=== PATIENT | female | born 1990 | race Caucasian/White ===

== ENCOUNTER 2024-10-29 07:57 | Inpatient (IN) ==
--- OUTSIDE RECORDS SUMMARY | 2024-10-29 08:05 | External Medical Summary | Summary of Care ---
Author Name Unknown Organization [facility] Address [address] [facility] [place] [address] Phone [phone] Care Team Providers Care Computer Aide Name Role Phone Sandra Vega Primary Care Provider Reason for Visit * Reason Onset Date Comments 10/24/2024 Encounter Details Date Type Department Care Team (Late st Contact Info) Description 10/24/2024 Telephone Gynecology/Obstetrics Carusobonnie Ricks [address] [place] [address] Mary Weathers CRNP [address] [place] [address] Allergies Active Allergy Reactions Criticality Noted Date Comments Citalopram Hydrobromide Other (Please comment) 02/18/2009 Increases anxiety-celexa Cyclobenzaprine 04/26/2021 documented as of this encounter (statuses as of 10/24/2024) Medications 28-0.8 MG Oral Tablet Take by mouth. Active [email or web address] Verio Flex System w/Device Kit Use to test blood sugars 4 times daily (fasting, 1 hour after breakfast, lunch, and dinner) 1 Kit 06/19/2024 Active Comparabien.comTouch Verio In Vitro Strip (Glucose Blood) Use to test blood sugars 4 times daily (fasting, 1 hour after breakfast, lunch, and dinner) 125 Strip 6 06/19/2024 Active OneTouch Delica Lancets 30G Use to test blood sugars 4 times daily (fasting, 1 hour after breakfast, lunch, and dinner) 200 Each 6 06/19/2024 Active Sertraline HCl 25 MG Oral Tablet (Zoloft) Take 1 Tablet by mouth in the morning. 06/28/2024 Active busPIRone HCl 5 MG Oral Tablet (Buspar) Take 1 Tablet by mouth in the morning and 1 Tablet at noon and 1 Tablet before bedtime. Active Meclizine HCl 25 MG Oral Tablet (Antivert) Take 1 Tablet by mouth 3 times a day as needed. Active valACYclovir HCl 500 MG Oral Tablet (Valtrex)Indica tions:HSV infection Take 1 Tablet by mouth in the morning and 1 Tablet before bedtime. 60 Tablet 1 09/23/2024 9:41 AM EST 09/23/2024 Active documented as of this encounter (statuses as of 10/24/2024) Active Problems Problem Noted Date Diagnosed Date History of respiratory syncytial virus (RSV) vac cination 09/23/2024 Overview (09/23/2024): 09/23/24 , supervision, high-risk 06/28/2024 Obesity in , antepartum 06/28/2024 Overview (07/10/2024): Pre gravid BMI: 35.0 Class 2 Assessment & Plan (07/11/2024 3:28 PM EDT): CONSIDERATIONS: Discussed obstetrical risks associated with class II obesity (pre- BMI of 35 to 39.9) Reviewed that the accuracy of ultrasound at diagnosing anomalies is significantly decreased for women with an increased BMI. RECOMMENDATIONS: Recommend restricting weight gain during to 11-20 pounds. Patient should be referred for a nutrition consult. Recommend evaluation for signs and symptoms (snoring, excessive daytime sleepiness witnessed apnea or unexplained hypoxia) of obstructive sleep apnea. If any of these are present, referral to Sleep Medicine specialist for further evaluation should be considered. Recommend performing gestational diabetes mellitus screen now (if not performed at first visit) and repeat again at 26-28 weeks if early screen is normal. Recommend Maternal- Medicine ultrasound for anatomy at 20 weeks and for growth every 4 weeks thereafter. For patients with Class 2 obesity, we recommend weekly surveillance starting at 37 weeks. Assessment & Plan (07/08/2024 12:34 PM EDT): She presents for a anatomy survey secondary to class II obesity, AMA, and GDM (currently A1). Labs reviewed: -- 3 hour GTT abnormal on 06/13/24 We reviewed the results of today's ultrasound. The estimated weight is appropriate for gestational age. The visualized anatomy is unremarkable in appearance. The amniotic fluid amount appears normal. We discussed that ultrasound is not able to identify all anomalies, but it is reassuring that no anomalies were seen today. She is scheduled for a consultation visit on 07/11/24. I encouraged her to attend. GDM (gestational diabetes mellitus) 06/24/2024 Overview (10/21/2024): Diagnosed at 21 weeks Nutrition consult declined by patient Recommend checking A1C (ordered) 1 hour GTT: 159 3 hour GTT: 103 / 182 / 152 / 117 Patient states that she and her family were on vacation,so she was not checking her blood sugars on a regular basis or at the fasting or 1 hour anabel; testing randomly 07/11/24: MFM ADAPT consult complete. Enrolled in [employer]. Instructions provided to report blood sugars each week for MFM review; Discussed importance of testing FBS and 1 hour after meals. Reviewed diet and exercise recommendations. 07/15/[id number]-DSF-jpmuceep 2 fasting blood sugars and 3 post prandial breakfast; stable. Messaged to be consistent with testing four times daily and reporting. Will review again next week. 07/22/[id number]-ZHQ-inditki blood sugars overall stable (2 of 7 elevated fasting blood sugars). Reported only 5 post prandial numbers in the past week. Again messaged to be consistent with testing four times daily. Will schedule follow up ADAPT appointment next week if still with minimal post prandial reporting. 07/29/[id number]-TAZ-wjkvlib stable (< 50% fasting blood sugars elevated). Minimal post prandial values. Patient and [facility] messaged to schedule follow up ADAPT appointment. 08/05/24: Follow-up ADAPT visit complete; minimal reporting in [facility] RPM; no blood sugars to review today - patient to send message with updated log; continue diet controlled; recommend Nutrition visit 08/15/[id number]-WUM-jad reporting. Sent message to patient and [facility] to schedule follow up ADAPT appointment. 08/19/24: Follow-up ADAPT visit complete; not reporting in [facility] RPM, minimal blood sugars reported today; of those reported, elevated FBS - pt declined starting medication today; recommend fasting 8-10 hours overnight along with having a bedtime snack of 30g CHO paired with protein; F/U ADAPT visit scheduled 08/26/24 @ 7:30AM 08/26/24: Follow-up ADAPT complete; minimal values reported - of those reported, stable although no FBS reported; continue diet controlled and reviewed importance of more consistent testing/reporting 09/02/[id number]-NEI-rcy reporting. Sent message via [employer] and [employer] asking her to report. Sent message to [facility] to schedule follow up ADAPT appointment. 09/06/2024 Follow up ADAPT compete; not reporting in [facility] or checking blood sugars consistently; blood sugars reported today are stable. Ask to commit to check blood sugars 4 times daily (if not at least always a fasting and one meal) and entering them into the [employer] [facility]. 09/09/[id number]-UCZ-xar reporting. Sent message via [employer] and [employer] asking her to report. 09/16/24: Pt not reporting BG readings. State she will being readings to her [facility] appoint on 09/19/24 09/20/24: Scanned blood sugars reviewed; stable; however, minimal values reported and unclear if fasting or postprandial values; will ask [facility] P[facility] to offer patient ADAPT visit 09/23/[id number]-TXZ-qwf reporting in [facility]. Has follow up ADAPT appointment scheduled 10/07/2024 per maternal medicine nurse practitioners. 10/01/24: RPM reviewed; RPM-not reporting in [facility]. Has follow up ADAPT appointment scheduled 10/07/2024. My chart message sent requesting updated blood sugars 10/07/24: Follow-up ADAPT visit complete; testing twice daily - of those reported, stable; continue diet controlled with more consistent testing/reporting; patient deferred scheduling F/U ADAPT visit at this time and states she will reporting in RPM 10/14/[id number]-LEI-oju reporting in [facility]. Sent message asking her to update values. 10/21/24: RPM reviewed; not reports blood sugars in [facility]. Sent my chart message to update blood sugars Assessment & Plan (10/17/2024 9:00 AM EST): Patient did not share sugars at her ultrasound appt today. Assessment & Plan (09/19/2024 10:19 AM EST): Provided sugars at her visit today. Assessment & Plan (08/15/2024 11:12 AM EDT): Not reporting sugars. Appt made for 08/19. Assessment & Plan (07/11/2024 4:02 PM EDT): CONSIDERATIONS: Reviewed etiology and risks associated with gestational diabetes mellitus (GDM), including risks to , fetus, and maternal progression to Type 2 DM. Instructed on proper use of glucometer; supplies ordered, if indicated. Advised that life-long screening for diabetes is recommended every 1-3 years. RECOMMENDATIONS: Recommend monitoring blood sugars with daily fasting blood sugar (maintained at less than or equal to 95) and 1 hour postprandial measurements (maintained at less than or equal to 140). Medications should be adjusted to maintain these target values. Report levels to MFM (Maternal- Medicine) weekly. Recommend nutrition consult with RDN (Registered Dietitian Acoustical Tile Carpenters Supervisor). Lifestyle changes are also indicated including optimizing gestational weight gain and physical activity of 30 minutes per day, if not otherwise contraindicated in . Insulin is preferred if medications are indicated to optimize euglycemia. Metformin (preferred over glyburide) may also be used in some circumstances. Reviewed the risks and benefits of each. Recommend hemoglobin A1c testing now if diagnosed with GDM prior to 24 weeks as there is potential for pre-existing diabetes. If result is 6.5% or greater, then will diagnose with overt Type 2 DM and treat as pre-existing diabetes. If compliance later in gestation is question, a HBA1c can be assessed with a goal of less than 6%. Recommend ultrasound, surveillance and delivery as follows: A1GDM, delivery should be accomplished by 41w0d. A2GDM, recommend growth assessment with MFM every 4 weeks, initiate surveillance with twice weekly NSTs at 32 weeks and continue until delivery at 39 weeks. Recommend intrapartum monitoring every 1-2 hours (A2GDM) or every 4 hours (A1GDM) and treat with insulin if indicated. Recommend 2-hour glucose tolerance testing with 75-gram glucose load during admission (or 6-8 weeks if not completed). H/O delivery, currently 024 Overview (07/11/2024): 2008: history of delivery at 29 weeks due to premature rupture of membranes (PPROM) and labor 2010: delivered at 39w --patient reports she started with labor around 25 weeks, was placed on Procardia until 35 weeks 07/08/2024: MFM anatomy ultrasound: cervical length = 35.9 mm Assessment & Plan (07/11/2024 3:46 PM EDT): CONSIDERATIONS: Patient is at high risk to have a recurrent delivery (PTD): 3.6-fold higher with one prior PTD and the risk increases with the number of previous PTDs. Discussed modifiable risk factors (e.g., infections, tobacco/substance abuse, severe anemia, and poor nutrition). Previous studies showed that 17 alpha-hydroxyprogesterone (17P) could decrease the risk of recurrent PTD by up to 50% in women with previous spontaneous PTD prior to 37 weeks. However, follow-up studies failed to confirm these results and 17P has since been withdrawn from the market by the FDA due to lack of efficacy. There is some evidence that vaginal micronized progesterone 200 mg may reduce the risk for recurrent spontaneous . It can be prescribed as either a compounded suppository or as oral Prometrium capsules placed intravaginally at bedtime. RECOMMENDATIONS: Consider nightly vaginal progesterone, particularly in patients who previously received 17P. Patient's primary STREET OPENINGS INSPECTOR can coordinate therapy if desired. For patients with a history of delivery/prolonged PROM between 20-33w6d BUT HAS HAD SUBSEQUENT FULL-TERM DELIVERY, we recommend baseline transvaginal cervical length measurement with MFM at 19-20 weeks. AMA (advanced maternal age) multigravida 35+ Overview (07/11/2024): Age 34 at delivery NIPT: declined Genetic counselor: declined Assessment & Plan (07/11/2024 4:06 PM EDT): CONSIDERATIONS: We reviewed the most pertinent aspects of the following: Advanced maternal age (AMA) refers to a woman with a ram who will be at the age of 35 or older at the estimated time of delivery and may be associated with increased morbidity. After discussion of the genetic screening/testing options, the patient declines genetic screening and testing. In addition to the risk of chromosomal abnormalities, there is an increased risk of congenital/structural anomalies. RECOMMENDATIONS: Recommend MFM anatomy ultrasound at 19-20 weeks gestation. Depression complicating , antepartum Overview (07/11/2024): Depression managed with Zoloft Reports a stable mood in . Denies any suicidal or homicidal ideation. Reports she has a good support system at home. Assessment & Plan (07/11/2024 3:28 PM EDT): CONSIDERATIONS: Untreated maternal anxiety and/or depression may be associated with an increased risk of multiple poor obstetrical outcomes including miscarriages, low weight, and delivery. Women with a history of anxiety or depression are at risk for recurrence both during and/or the period. Studies of first-trimester SSRI exposure do not demonstrate consistent data to support an increased risk for structural malformations. Anti-anxiety or depression medications have been associated with transient effects (withdrawal syndrome). RECOMMENDATIONS: Mental illness can and should be treated during when the benefits of treatment outweigh potential risks. Referral to behavioral health services as clinically indicated. Cholelithiasis 10/17/2012 HSV infection Estimated Date of Delivery Comme nts Yes 10/25/2024 Based on Ultraso und documented as of this encounter (statuses as of 10/24/2024) Resolved Problems Problem Noted Date Diagnosed Date Resolved Date with 24 completed weeks gestation 07/11/2024 09/09/2024 ADVANCE DIRECTIVE INFORMATION 04/09/2009 09/02/2024 Overview (04/09/2009): No, Advance Directive brochure offered , patient declined. Current with histo ry of pre-term labor 02/18/2009 06/28/2024 documented as of this encounter (statuses as of 10/24/2024) Immunizations Name Administration Dates Next Due RSV Vac., Bivalent, Perfusion F, Pf,0.5 Ml (Abry svo) 09/23/2024 TDAP, Age 7 and older, IM (Adacel) 07/29/2024 documented as of this encounter Social History Tobacco Use Types Packs/Day Years Used Date Smoking Tobacco: Every Day Vaporizer Smokeless Tobacco: Current Comments:Vapes 5% nicotine Alcohol Use Standard Drinks/Week Comments No 0 (1 standard drink = 0.6 oz pur e alcohol) Hunger Vital Sign Answer Date Recorded Within the past 12 months, y ou worried that your food would run out before you got the money to buy more. Never true 05/27/20 24 Within the past 12 months, t he food you bought just didn't last and you didn't have money to get more. Never true 05/27/2024 Biggs Depression Scale Answer Date Recorded Biggs Depression Scale Total 3 09/09/2024 The thought of harming myself has occurred to me . Never 09/09/2024 Childcare Answer Date Recorded Do you feel overwhelmed with taking care of a child, family member or friend? No 05/27/2024 Does your family need help f inding childcare? (Household - for ages 0-17 years) Not on file 05/27/2024 Clothing Answer Date Recorded Have you been unable to get clothing when it was really needed? No 05/27/2024 Is your family able to get c lothes or diapers when needed? (Household - for ages 0-17 years) Not on file 05/27/2024 Personal Safety Answer Date Recorded Do you feel unsafe or have concerns for your saf ety? No 05/27/2024 Do you have concerns for you r family's safety? (Household - for ages 0-17 years) Not on file 05/27/2024 Utilities Answer Date Recorded Do you have trouble paying y our heating, water, or electric bill? No 05/27/2024 Is your family able to pay t he heat, water, or electric bill? (Household - for ages 0-17 years) Not on file 05/27/2024 Does your family have access to good internet? (Household - for ages 0-17 years) Not on file 05/27/2024 Employment Status Answer Date Recorded Are you unemployed or without regular income? No 05/27/2024 Does the household have a re gular source of income? (Household - for ages 0-17 years) Not on file 05/27/2024 Social Connections Answer Date Recorded How often do you feel lonely or isolated from th ose around you? Never 05/27/2024 Financial Resource Strain Answer Date R ecorded Do you have any trouble payi ng for your medications, or do you think you might in the future? No 05/27/2024 Does your family have troubl e paying for medicine? (Household - for ages 0-17 years) Not on file 05/27/2024 Transportation Needs Answer Date Record ed READ ONLY Do you have troubl e getting a ride to medical visits or work? Never True 05/27/2024 Does your family have a hard time getting a ride to doctors visits? (Household - for ages 0-17 years) Not on file 05/27/2024 Has lack of transportation k ept you from medical appointments, meetings, work, or from getting things needed for daily living? Check all that apply. No 05/27/2024 Do you (or your family) have trouble finding or paying for a ride (transportation)? (Household - for ages 0-17 years) Not on file 05/27/2024 Housing Stability Answer Date Recorded Do you currently live in a s helter or have no steady place to sleep at night? No 05/27/2024 READ ONLY Do you think you a re at risk of becoming homeless? No 05/27/2024 Does your family worry about paying for your home or becoming homeless? (Household - for ages 0-17 years) Not on file 0 05/27/2024 Are you homeless or worried that you might be in the future? No 05/27/2024 Are you (or your family) patricia eless or worried that you might be in the future? (Household - for ages 0-17 years) Not on file Food Insecurity Answer Date Recorded Do you need food for this week? No 05/27/2024 Are you able to get enough f ood for your family? (Household - for ages 0-17 years) Not on file 05/27/2024 Does your family need food t his week? (Household - for ages 0-17 years) Not on file 05/27/2024 Do you always have enough fo od for your family? (Household - for ages 0-17 years) Not on file 05/27/2024 Estimated Date of Delivery Comme nts Yes 10/25/2024 Based on Ultraso und Sex and Gender Information Value Date Recorded Sex Assigned at Female 04/11/2024 8:57 PM EDT Legal Sex Female 7:11 AM EST Gender Identity Female 04/11/2024 8:57 PM EDT Sexual Orientation Straight 04/11/2024 8: 57 PM EDT documented as of this encounter Miscellaneous Notes * Telephone Encounter - Isela Landry CMA - 10/24/2024 3:15 PM EST FMLA papers signed, faxed and copy placed in triage for patient to roll picker. documented in this encounter Plan of Treatment Upcoming Encounters Date Type Department Care Team (Late st Contact Info) Description 10/28/2024 11:15 AM EST Office Visit Gynecology/Obstetrics Parvez Ricks [address] [place] [address] Charleen Su CRNP [address] [place] [phone] Jessica Ricks Stress Tests Yo [address] [place] [address] Health Maintenance Due Date Last Done Comments Depression Monitoring 2001 HIV Screening 2004 Hepatitis C Screening 2007 Pneumococcal Vaccine: Pediat rics (0 to 5 Years) and At-Risk Patients (6 to 18 Years and 19+ Years) (1 of 2 - PCV) 2008 HPV/Co-Test 2019 COVID-19 Vaccine (2 - 2023-2 5 season) 2024 06/15/2021 Influenza Vaccine (FLU shot) (#1) 2024 Cervical Cancer Screening 08/30/2026 Pap Smear 08/30/2026 08/30/2023 Diabetes Screening 06/08/2027 06/08/2024 DTap/Tdap Vaccines (6 - Td o r Tdap) 07/29/2034 07/29/2024, 09/04/1995, 1989, Additional history exists Hepatitis B Vaccine Completed 02/01/2000, 08/31/1999, 07/27/1999 MENINGOCOCCAL (MENACTRA/MENVEO) Completed 7 HPV (Gardasil) Vaccine Completed 8, 10/18/2007, 08/14/2007 documented as of this encounter Medical Devices Not on filedocumented as of this encounter Advance Directives * Full Code (Latest Code Status on File) Date Activated Date Inactivated Comments 02/18/2009 4:31 PM 02/26/2009 8:21 PM Care Teams Computer Aide Relationship Specialty Start Date End Date Sandra Vega DO [facility] Pipo Wilkinson [address] [place] [address], [place] [address] PCP - General Family Medicine 10/17/12 documented as of this encounter
--- OUTSIDE RECORDS SUMMARY | 2024-10-29 08:05 | External Medical Summary | Summary of Care ---
Author Name Unknown Organization [facility] Address [address] [facility] [place] [address] Phone [phone] Care Team Providers Care Whitewasher Name Role Phone Sandra Vega Primary Care Provider Reason for Visit * Reason Comments Return Visit Non Stress Test Encounter Details Date Type Department Care Team (Late st Contact Info) Description 10/09/2024 9:00 AM EST Office Visit Gynecology/Obstetric s [facility] [address] [place] [address] Mary Weathers CRNP [address] [place] [address] Ricks, Non Stress Tests [facility] [address] [place] [address] Multigravida of advanced maternal age in third trimester*; Diet controlled gestational diabetes mellitus (GDM) in third trimester; H/O delivery, currently ; Depression complicating , antepartum; Supervision of high risk in third trimester; Obesity in , antepartum; History of respiratory syncytial virus (RSV) vaccination Allergies Active Allergy Reactions Criticality Noted Date Comments Citalopram Hydrobromide Other (Please comment) 02/18/2009 Increases anxiety-celexa Cyclobenzaprine 04/26/2021 documented as of this encounter (statuses as of 10/09/2024) Medications 28-0.8 MG Oral Tablet Take by mouth. Active BlueLithium Flex System w/Device Kit Use to test blood sugars 4 times daily (fasting, 1 hour after breakfast, lunch, and dinner) 1 Kit 06/19/2024 Active OneTouch Verio In Vitro Strip (Glucose Blood) Use [...] as of this encounter (statuses as of 10/09/2024) Active Problems Problem Noted Date Diagnosed Date [...] attend. GDM (gestational diabetes mellitus) 06/24/2024 Overview (10/07/2024): Diagnosed at 21 weeks Nutrition consult declined [...] 07/11/24: MFM ADAPT consult complete. Enrolled in Current Health. Instructions provided to report blood sugars each week for MFM review; Discussed importance of testing FBS and 1 hour after meals. Reviewed diet and exercise recommendations. 07/15/20249994-MPL-wyianieq 2 fasting blood sugars and 3 post prandial breakfast; stable. Messaged to be consistent with testing four times daily and reporting. Will review again next week. 07/22/20247534-ENM-vildscy blood sugars overall stable (2 of 7 elevated fasting blood sugars). Reported only 5 post prandial numbers in the past week. Again messaged to be consistent with testing four times daily. Will schedule follow up ADAPT appointment next week if still with minimal post prandial reporting. 07/29/[id number]-NSJ-vazapfx stable (< 50% fasting blood sugars elevated). Minimal post prandial values. Patient and [facility] messaged to schedule follow up ADAPT appointment. 08/05/24: Follow-up ADAPT visit complete; minimal reporting in [facility] RPM; no blood sugars to review today - patient to send message with updated log; continue diet controlled; recommend Nutrition visit 08/15/20243932-QSA-tkb reporting. Sent message to patient and [facility] to schedule follow up ADAPT appointment. [...] and reviewed importance of more consistent testing/reporting 09/02/20249024-SEH-lgo reporting. Sent message via [employer] and [employer] asking her to report. Sent message to [facility] to schedule follow up ADAPT appointment. 09/06/2024 Follow up ADAPT compete; not reporting in [facility] [place] or checking blood sugars consistently; blood sugars reported today are stable. Ask to commit to check blood sugars 4 times daily (if not at least always a fasting and one meal) and entering them into the [employer] [place]. 09/09/20242036-ZTZ-pnf reporting. Sent message via [employer] and [employer] asking her to report. 09/16/24: Pt not reporting BG readings. State she will being readings to her [facility] appoint on 09/19/24 09/20/24: Scanned blood sugars reviewed; stable; however, minimal values reported and unclear if fasting or postprandial values; will ask [facility] PARS to offer patient ADAPT visit 09/23/20243649-MAS-hvr reporting in Current Health. Has follow up [...] time and states she will reporting in CH RPM Assessment & Plan (09/19/2024 10:19 AM EST): [...] Recommend nutrition consult with RDN (Registered Dietitian Equipment Mechanic). Lifestyle changes are also indicated including optimizing [...] patients who previously received 17P. Patient's primary SAMPLE SELECTOR can coordinate therapy if desired. For patients [...] as of this encounter (statuses as of 10/09/2024) Resolved Problems Problem Noted Date Diagnosed Date Resolved Date with 24 completed weeks gestation 07/11/2024 09/09/2024 ADVANCE DIRECTIVE INFORMATION 04/09/2009 09/02/2024 Overview (04/09/2009): No, Advance Directive brochure offered , patient declined. Current with histo ry of pre-term labor 02/18/2009 06/28/2024 documented as of this encounter (statuses as of 10/09/2024) Immunizations Name Administration Dates Next Due RSV [...] money to get more. Never true 05/27/2024 [place] Depression Scale Answer Date Recorded [place] Depression Scale Total 3 09/09/2024 The thought [...] PM EDT documented as of this encounter Last Filed Vital Signs Vital Sign Reading Time Taken Comments Blood Pressure 118/64 10/09/2024 9:12 AM EST Pulse - - Temperature - - Respiratory Rate - - Oxygen Saturation - - Inhaled Oxygen Concentration - - Weight 91.4 kg (201 lb 6.4 oz) 10/09/2024 9:12 A M EST Height - - Body Mass Index 35.68 04/25/2024 8:49 AM EDT documented in this encounter Progress Notes * Mary Weathers CRNP - 10/09/2024 9:54 AM EST 37w5d Asking about 39w IOL. Explained policy of elective induction being on or after EDC, [facility] request ofsuch. Asking about elective c/s, explained she needs to discuss this with a physician, and that shelikely would need a valid reason for this. Suggested she reschedule her next EMMIE appt with a physician if she would like to discuss this. She states her blood sugars are good. Had ADAPT appt earlier this week, which stated she was only checking sugar twice a day. ASSESSMENT assessment with Non-stress Test completed on 10/09/2024 at 37.5weeks gestation for indicationof obesity heart baseline: 150 bpm Variability: Moderate Decelerations: absent Accelerations: present Contractions: None NST start time: 908 NST stop time: 945 NST strip reviewed, interpreted, and approved by OB provider, JIGAR Lucas . NST strip stored in clinic storage file * Isela Landry CMA - 10/09/2024 9:12 AM EST 37w5d NST/EMMIE Denies any concerns documented in this encounter Plan of Treatment Upcoming Encounters Date Type Department Care Team (Late st Contact Info) Description 10/17/2024 8:00 AM EST Imaging Maternal Medicine Imaging, Yo [facility] [address] [place] [phone] 10/17/2024 8:30 AM EST Office Visit Gynecology/Obstetrics [facility] [address] [place] [address] Backer, JIGAR Barba [address] [place] [phone] Health Maintenance Due Date Last Done Comments Pneumococcal Vaccine: Pediat rics (0 to 5 Years) and At-Risk Patients (6 to 64 Years) (1 of 2 - PCV) 1995 Depression Monitoring 2001 HIV Screening 2004 Hepatitis C Screening 2007 HPV/Co-Test 2019 COVID-19 Vaccine (2 - 2023-2 [...] Not on filedocumented as of this encounter Visit Diagnoses Diagnosis Obesity in , antepartum- Primary Obesity complicating , childbirth, or the puerperium, antepartum condition or complication Multigravida of advanced maternal age in second trimester Diet controlled gestational diabetes mellitus (GDM) in second trimester H/O delivery, currently with history of pre-term labor 24 weeks gestation of state, incidental Other specified related conditions, unspecified trimester Diet controlled gestational diabetes mellitus (GDM) in second trimester- Primary Obesity in , antepartum Obesity complicating , childbirth, or the puerperium, antepartum condition or complication H/O delivery, currently with history of pre-term labor Depression complicating , antepartum Mental disorders of mother, antepartum Multigravida of advanced maternal age in second trimester Supervision of high risk in second trimester Unspecified high-risk with 24 completed weeks gestation Obesity in , antepartum- Primary Obesity complicating , childbirth, or the puerperium, antepartum condition or complication Diet controlled gestational diabetes mellitus (GDM) in third trimester Multigravida of advanced maternal age in third trimester 29 weeks gestation of state, incidental Diet controlled gestational diabetes mellitus (GDM) in third trimester- Primary Obesity in , antepartum Obesity complicating , childbirth, or the puerperium, antepartum condition or complication Ultrasound for screening for growth restriction screening for growth retardation using ultrasonics 34 weeks gestation of state, incidental Multigravida of advanced maternal age in third trimester- Primary Diet controlled gestational diabetes mellitus (GDM) in third trimester H/O delivery, currently with history of pre-term labor Depression complicating , antepartum Mental disorders of mother, antepartum Supervision of high risk in third trimester Unspecified high-risk Obesity in , antepartum Obesity complicating , childbirth, or the puerperium, antepartum condition or complication History of respiratory syncytial virus (RSV) vaccination documented in this encounter Advance Directives * Full Code (Latest Code Status on File) Date Activated Date Inactivated Comments 02/18/2009 4:31 PM 02/26/2009 8:21 PM Care Teams Whitewasher Relationship Specialty Start Date End Date Sandra Vega DO [address] [place] [address] [place] [address] PCP - General Family Medicine 10/17/12 documented as of this encounter
--- OUTSIDE RECORDS SUMMARY | 2024-10-29 08:05 | External Medical Summary | Summary of Care ---
Author Name Unknown Organization [facility] Address [address] [place] [address] Phone [phone] Care Team Providers Care Mercantile Agent Name Role Phone Sandra Vega Primary Care Provider Encounter Details Date Type Department Care Team (Late st Contact Info) Description 10/17/2024 8:00 AM EST Office Visit Manager Diabetes Obstetrics Maternal Medicine, [address] [place] [address] Anna Jara DO [address] [place] [address] Diet controlled gestational diabetes mellitus (GDM) in third trimester*; Multigravida of advanced maternal age in third trimester; Obesity in , antepartum; Ultrasound for screening for growth restriction; 38 weeks gestation of Allergies Active Allergy Reactions Criticality Noted Date Comments Citalopram Hydrobromide Other (Please comment) 02/18/2009 Increases anxiety-celexa Cyclobenzaprine 04/26/2021 documented as of this encounter (statuses as of 10/17/2024) Medications 28-0.8 MG Oral Tablet Take by mouth. Active [employer] Flex System w/Device Kit Use to test blood sugars 4 times daily (fasting, 1 hour after breakfast, lunch, and dinner) 1 Kit 06/19/2024 Active [employer] First30Daysio In Vitro Strip (Glucose Blood) Use to test blood sugars 4 times daily (fasting, 1 hour after breakfast, lunch, and dinner) 125 Strip 6 06/19/2024 Active MeMeMeTouch Delica Lancets 30G Use to test blood [...] as of this encounter (statuses as of 10/17/2024) Active Problems Problem Noted Date Diagnosed Date [...] attend. GDM (gestational diabetes mellitus) 06/24/2024 Overview (10/14/2024): Diagnosed at 21 weeks Nutrition consult declined [...] MFM ADAPT consult complete. Enrolled in Current [employer]. Instructions provided to report blood sugars each week for MFM review; Discussed importance of testing FBS and 1 hour after meals. Reviewed diet and exercise recommendations. 07/15/20247727-VEA-ttqgrkyn 2 fasting blood sugars and 3 post prandial breakfast; stable. Messaged to be consistent with testing four times daily and reporting. Will review again next week. 07/22/[id number]-ERK-uuqvbtp blood sugars overall stable (2 of 7 elevated fasting blood sugars). Reported only 5 post prandial numbers in the past week. Again messaged to be consistent with testing four times daily. Will schedule follow up ADAPT appointment next week if still with minimal post prandial reporting. 07/29/20242549-BIT-uyriwtw stable (< 50% fasting blood sugars elevated). Minimal post prandial values. Patient and [facility] PAR[facility] messaged to schedule follow up ADAPT appointment. 08/05/24: Follow-up ADAPT visit complete; minimal reporting in RPM; no blood sugars to review today - patient to send message with updated log; continue diet controlled; recommend Nutrition visit 08/15/20243100-XGR-jwu reporting. Sent message to patient and [facility] PAR[facility] to schedule follow up ADAPT appointment. 08/19/24: Follow-up ADAPT visit complete; not reporting in RPM, minimal blood sugars reported today; of [...] and reviewed importance of more consistent testing/reporting 09/02/20246707-IRU-yga reporting. Sent message via [employer] and [employer] asking her to report. Sent message to [facility] PARs to schedule follow up ADAPT appointment. 09/06/2024 Follow up ADAPT compete; not reporting in [facility] or checking blood sugars consistently; blood sugars reported today are stable. Ask to commit to check blood sugars 4 times daily (if not at least always a fasting and one meal) and entering them into the [employer] [place]. 09/09/20241154-AUC-dyv reporting. Sent message via [employer] and [employer] asking her to report. 09/16/24: Pt not reporting BG readings. State she will being readings to her [facility] appoint on 09/19/24 09/20/24: Scanned blood sugars reviewed; stable; however, minimal values reported and unclear if fasting or postprandial values; will ask [facility] PARS to offer patient ADAPT visit 09/23/20242627-VNU-uft reporting in Current Health. Has follow up [...] and states she will reporting in RPM 10/14/20246313-NDE-rvv reporting in Current Health bonita. Sent message asking her to update values. Assessment & Plan (10/17/2024 9:00 AM EST): [...] Recommend nutrition consult with RDN (Registered Dietitian Rv Body Mechanic). Lifestyle changes are also indicated including [...] premature rupture of membranes (PPROM) and labor 2011: delivered at 39w --patient reports she started [...] patients who previously received 17P. Patient's primary CONCRETE PRODUCTS DISPATCHER can coordinate therapy if desired. For patients [...] as of this encounter (statuses as of 10/17/2024) Resolved Problems Problem Noted Date Diagnosed Date Resolved Date with 24 completed weeks gestation 07/11/2024 09/09/2024 ADVANCE DIRECTIVE INFORMATION 04/09/2009 09/02/2024 Overview (04/09/2009): No, Advance Directive brochure offered , patient declined. Current with histo ry of pre-term labor 02/18/2009 06/28/2024 documented as of this encounter (statuses as of 10/17/2024) Immunizations Name Administration Dates Next Due RSV [...] money to get more. Never true 05/27/2024 [place] Depression Scale Answer Date Recorded [place] Depression Scale Total 3 09/09/2024 The thought [...] PM EDT documented as of this encounter Progress Notes * Anna Jara DO - 10/17/2024 9:00 AM EST Priyanka presented today at 38w6d for an ultrasound for the following indications: Diet controlled gestational diabetes mellitus (GDM) in third trimester Assessment & Plan: Patient did not share sugars at her ultrasound appt today. Multigravida of advanced maternal age in third trimester Obesity in , antepartum Ultrasound for screening for growth restriction 38 weeks gestation of Ultrasound summary: Patient presented at 38w 6d for growth assessment. Normal growth with EFW 2989 g at 18%ile. Normal ROSA at 7.6 cm. Cephalic presentation. BPP 06/06. I reviewed the ultrasound images. Priyanka was given the opportunity to meet with me if she had any questions. Please refer to the ultrasound report for additional details about today's ultrasound examination. RECOMMENDATIONS: Follow up with MFM for ultrasound as clinically indicated. Weekly NSTs. See prior formal MFM consultation note. Thank you for allowing us to participate in the care of this patient. Please call with any questions. Anna Jara DO 10/17/2024 9:00 AM documented in this encounter Miscellaneous Notes * Assessment & Plan Note - Anna Jara DO - 10/17/2024 9:00 AM EST Associated Problem(s): GDM (gestational diabetes mellitus) Patient did not share sugars at her ultrasound appt today. documented in this encounter Plan of Treatment Health Maintenance Due Date Last Done Comments [...] ultrasonics 34 weeks gestation of state, incidental Diet controlled gestational diabetes mellitus (GDM) in third trimester- Primary Multigravida of advanced maternal age in third trimester Obesity in , antepartum Obesity complicating , childbirth, or the puerperium, antepartum condition or complication Ultrasound for screening for growth restriction screening for growth retardation using ultrasonics 38 weeks gestation of state, incidental documented in this encounter Advance Directives * Full Code (Latest Code Status on File) Date Activated Date Inactivated Comments 02/18/2009 4:31 PM 02/26/2009 8:21 PM Care Teams Mercantile Agent Relationship Specialty Start Date End Date Sandra Vega DO [address] [place] [phone] PCP - General Family Medicine 10/17/12 documented as of this encounter
--- OUTSIDE RECORDS SUMMARY | 2024-10-29 08:05 | External Medical Summary | Summary of Care ---
Author Name Unknown Organization [facility] Address [address] [facility] [place] [address] Phone [phone] Care Team Providers Care Planning Associate Name Role Phone Sandra Vega Primary Care Provider Reason for Visit * Reason Comments Return Visit Encounter Details Date Type Department Care Team (Late st Contact Info) Description 10/17/2024 8:30 AM EST Office Visit Gynecology/Obstetric s [facility] [address] [place] [address] BackerCharleen CRNP [address] [place] [address] Supervision of high risk in third trimester*; Diet controlled gestational diabetes mellitus (GDM) in third trimester; H/O delivery, currently ; Multigravida of advanced maternal age in third trimester; Depression complicating , antepartum; Obesity in , antepartum; History of respiratory syncytial virus (RSV) vaccination Allergies Active Allergy Reactions Criticality Noted Date Comments Citalopram Hydrobromide Other (Please comment) 02/18/2009 Increases anxiety-celexa Cyclobenzaprine 04/26/2021 documented as of this encounter (statuses as of 10/17/2024) Medications 28-0.8 MG Oral Tablet Take by mouth. Active [employer] Verio Flex System w/Device Kit Use to test blood sugars 4 times daily (fasting, 1 hour after breakfast, lunch, and dinner) 1 Kit 06/19/[address] [employer] Verio In Vitro Strip (Glucose Blood) Use [...] 07/11/24: MFM ADAPT consult complete. Enrolled in [facility]. Instructions provided to report blood sugars each week for MFM review; Discussed importance of testing FBS and 1 hour after meals. Reviewed diet and exercise recommendations. 07/15/20248747-QFN-gjnrspst 2 fasting blood sugars and 3 post prandial breakfast; stable. Messaged to be consistent with testing four times daily and reporting. Will review again next week. 07/22/20246455-NGH-chrgfdo blood sugars overall stable (2 of 7 elevated fasting blood sugars). Reported only 5 post prandial numbers in the past week. Again messaged to be consistent with testing four times daily. Will schedule follow up ADAPT appointment next week if still with minimal post prandial reporting. 07/29/20243526-JPY-ejbmccn stable (< 50% fasting blood sugars elevated). Minimal post prandial values. Patient and [facility] PARs messaged to schedule follow up ADAPT appointment. 08/05/24: Follow-up ADAPT visit complete; minimal reporting in CH RPM; no blood sugars to review today - patient to send message with updated log; continue diet controlled; recommend Nutrition visit 08/15/20247750-DLH-obj reporting. Sent message to patient and [facility] PARs to schedule follow up ADAPT appointment. [...] and reviewed importance of more consistent testing/reporting 09/02/20243613-ZFK-wis reporting. Sent message via [employer] and [employer] asking her to report. Sent message to [facility] PARs to schedule follow up ADAPT appointment. 09/06/2024 Follow up ADAPT compete; not reporting in [facility] [place] or checking blood sugars consistently; blood sugars reported today are stable. Ask to commit to check blood sugars 4 times daily (if not at least always a fasting and one meal) and entering them into the [employer] [place]. 09/09/[id number]-EMO-jcv reporting. Sent message via [employer] and [employer] asking her to report. 09/16/24: Pt not reporting BG readings. State she will being readings to her [facility] appoint on 09/19/24 09/20/24: Scanned blood sugars reviewed; stable; however, minimal values reported and unclear if fasting or postprandial values; will ask [facility] PARS to offer patient ADAPT visit 09/23/20243764-KDX-qhe reporting in Current Health. Has follow up [...] states she will reporting in CH RPM 10/14/20241485-XKK-pyz reporting in Current Health bonita. Sent message asking her to update values. Assessment & Plan (09/19/2024 10:19 AM EST): [...] Recommend nutrition consult with RDN (Registered Dietitian Optical Laboratory Manager). Lifestyle changes are also indicated including optimizing [...] patients who previously received 17P. Patient's primary CAUSE ANALYST can coordinate therapy if desired. For patients [...] money to get more. Never true 05/27/2024 [place] Depression Scale Answer Date Recorded [place] Depression Scale Total 3 09/09/2024 The thought [...] Sign Reading Time Taken Comments Blood Pressure 122/72 10/17/2024 8:11 AM EST Pulse - - Temperature - - Respiratory Rate - - Oxygen Saturation - - Inhaled Oxygen Concentration - - Weight 91.5 kg (201 lb 12.8 oz) 10/17/2024 8:11 AM EST Height - - Body Mass Index 35.75 04/25/2024 8:49 AM EDT documented in this encounter Progress Notes * Isela Landry CMA - 10/17/2024 8:38 AM EST 38w6d Denies any concerns * Charleen Su CRNP - 10/17/2024 8:21 AM EST 38w6d Growth scan with MFM today, BPP 06/06. No regular ctx. Good movement. Denies leaking/bleeding. Recommend delivery by 41w0d due to GDMA 1, patient agreeable. Return in 1 week for EMMIE/NST. JIGAR Leo documented in this encounter Plan of Treatment [...] ultrasonics 34 weeks gestation of state, incidental Supervision of high risk in third trimester- Primary Unspecified high-risk Diet controlled gestational diabetes mellitus (GDM) in third trimester H/O delivery, currently with history of pre-term labor Multigravida of advanced maternal age in third trimester Depression complicating , antepartum Mental disorders of mother, antepartum Obesity in , antepartum Obesity complicating , childbirth, or the puerperium, antepartum condition or complication History of respiratory syncytial virus (RSV) vaccination documented in this encounter Advance Directives * Full Code (Latest Code Status on File) Date Activated Date Inactivated Comments 02/18/2009 4:31 PM 02/26/2009 8:21 PM Care Teams Planning Associate Relationship Specialty Start Date End Date Sandra Vega DO [address] [place] [address] [address] PCP - General Family Medicine 10/17/12 documented as of this encounter
--- OUTSIDE RECORDS SUMMARY | 2024-10-29 08:05 | External Medical Summary | Summary of Care ---
Author Name Unknown Organization [facility] Address [address] [address] Phone [phone] Care Team Providers Care Network Firewall Engineer Name Role Phone Sandra Vega Primary Care Provider Reason for Visit * Reason Comments Return Visit Non Stress Test Encounter Details Date Type Department Care Team (Late st Contact Info) Description 10/24/2024 10:00 AM EST Office Visit Gynecology/Obstetric s [facility] [address] [place] [address] Dee Tam PA-C [address] [place] [address] [facility] Non Stress Tests Yo [address] [place] [address] Supervision of high risk in third trimester*; [...] MG Oral Tablet Take by mouth. Active Access Systems System w/Device Kit Use to test blood sugars 4 times daily (fasting, 1 hour after breakfast, lunch, and dinner) 1 Kit 06/19/2024 Active ClowdyTouch Verio In Vitro Strip (Glucose Blood) Use [...] after meals. Reviewed diet and exercise recommendations. 07/15/20241706-LQI-qwaruojy 2 fasting blood sugars and 3 post prandial breakfast; stable. Messaged to be consistent with testing four times daily and reporting. Will review again next week. 07/22/20244062-GEA-qurxplj blood sugars overall stable (2 of 7 elevated fasting blood sugars). Reported only 5 post prandial numbers in the past week. Again messaged to be consistent with testing four times daily. Will schedule follow up ADAPT appointment next week if still with minimal post prandial reporting. 07/29/20245546-JTN-yhxaxtp stable (< 50% fasting blood sugars elevated). Minimal post prandial values. Patient and [facility] messaged to schedule follow up ADAPT appointment. 08/05/24: Follow-up ADAPT visit complete; minimal reporting in [facility] RPM; no blood sugars to review today - patient to send message with updated log; continue diet controlled; recommend Nutrition visit 08/15/20243165-HJJ-epb reporting. Sent message to patient and [facility] [...] and reviewed importance of more consistent testing/reporting 09/02/20246598-OJY-qzr reporting. Sent message via [employer] and Re[employer]ult asking her to report. Sent message to [...] one meal) and entering them into the [employer] Bonita. 09/09/20246492-LNC-ium reporting. Sent message via [employer] and Re5ult asking her to report. 09/16/24: Pt not reporting BG readings. State she will being readings to her [facility] appoint on 09/19/24 09/20/24: Scanned blood sugars reviewed; stable; however, minimal values reported and unclear if fasting or postprandial values; will ask [facility] PARS to offer patient ADAPT visit 09/23/20244540-SJV-bph reporting in Current Health. Has follow up ADAPT appointment scheduled 10/07/2024 per maternal medicine nurse practitioners. 10/01/24: RPM reviewed; RPM-not reporting in Current Health. Has follow up ADAPT appointment scheduled 10/07/2024. My Quintic message sent requesting updated blood sugars 10/07/24: Follow-up ADAPT visit complete; testing twice daily - of those reported, stable; continue diet controlled with more consistent testing/reporting; patient deferred scheduling F/U ADAPT visit at this time and states she will reporting in RPM 10/14/20243465-EZW-wwn reporting in Current Health bonita. Sent message [...] Recommend nutrition consult with RDN (Registered Dietitian Field Secretary). Lifestyle changes are also indicated including optimizing [...] patients who previously received 17P. Patient's primary STEEL ANALYST can coordinate therapy if desired. For [...] money to get more. Never true 05/27/2024 [place] Depression Scale Answer Date Recorded [place] Depression Scale Total 3 09/09/2024 The thought [...] Sign Reading Time Taken Comments Blood Pressure 116/72 10/24/2024 10:16 AM EST Pulse - - Temperature - - Respiratory Rate - - Oxygen Saturation - - Inhaled Oxygen Concentration - - Weight 91.2 kg (201 lb) 10/24/2024 10:16 AM EST Height - - Body Mass Index 35.61 04/25/2024 8:49 AM EDT documented in this encounter Progress Notes * Dee Tam PA-C - 10/24/2024 10:00 AM EST Priyanka Hooks is a 34 year old female here for her routine OB appointment at 39w6d Her Estimated Date of Delivery: 10/25/24 REVIEW OF SYSTEMS She affirms movement. Denies vaginal bleeding, LOF, regular contractions. PHYSICAL EXAM Filed Vitals: 10/24/24 1016 BP: 116/72 Weight: 91.2 kg (201 lb) ASSESSMENT assessment with Non-stress Test completed on 10/24/2024 at 39w6d weeks gestation for indication of Class 2 obesity. heart baseline: 130 bpm Variability: Moderate Decelerations: absent Accelerations: present Contractions: None NST start time: 1249 NST stop time: 1327 NST strip reviewed, interpreted, and approved by OB provider, Dee Tam PA-C. NST strip stored in clinic storage file CE: %/-3 Membrane sweep performed per patient request Prison Teacher Documentation Patient offered contract administration specialist and accepted. Name of contract administration specialist: Tiarra Carter LPN. ASSESSMENT/PLAN Supervision of high risk in third trimester (Primary) Diet controlled gestational diabetes mellitus (GDM) in third trimester H/O delivery, currently Multigravida of advanced maternal age in third trimester Depression complicating , antepartum Obesity in , antepartum Supervision of - IOL scheduled 10/29 at 40w4d - labor precautions and kick counts reviewed RTO in ~4 days for 1 more EMMIE/NST prior to IOL scheduled 10/29. Dee Tam PA-C 10/24/2024 documented in this encounter Plan of Treatment Upcoming Encounters Date Type Department Care Team (Late st Contact Info) Description 10/28/2024 11:15 AM EST Office Visit Gynecology/Obstetrics [facility] [address] [place] [address] Charleen Su CRNP [address] [place] [address] Jessica Ricks Stress Tests Yo [address] [place] [address] Health Maintenance Due Date Last Done Comments [...] ultrasonics 38 weeks gestation of state, incidental Supervision of [...] 4:31 PM 02/26/2009 8:21 PM Care Teams Network Firewall Engineer Relationship Specialty Start Date End Date Sandra Vega DO [address] [place] [address] [place] [address], [place] [address] PCP - General Family Medicine 10/17/12 documented as of this encounter
--- OUTSIDE RECORDS SUMMARY | 2024-10-29 08:05 | External Medical Summary | Summary of Care ---
Author Name Unknown Organization [facility] Address [address] [place] [address] Phone [phone] Care Team Providers Care Production Control Technologist Name Role Phone Sandra Vega Primary Care Provider Reason for Visit * Reason Comments Non Stress Test Return Visit Encounter Details Date Type Department Care Team (Late st Contact Info) Description 10/28/2024 11:15 AM EST Office Visit Gynecology/Obstetric s [facility] [address] [place] [address] BackCharleen fish CRNP [address] [place] [address] [place], Non Stress Tests Yo [address] [place] [address] Supervision of high risk in third trimester*; [...] as of this encounter (statuses as of 10/28/2024) Medications 28-0.8 MG Oral Tablet Take by mouth. Active Orgdot System w/Device Kit Use to test blood sugars 4 times daily (fasting, 1 hour after breakfast, lunch, and dinner) 1 Kit 06/19/2024 Active tomoguidesTouch Verio In Vitro Strip (Glucose Blood) Use [...] as of this encounter (statuses as of 10/28/2024) Active Problems Problem Noted Date Diagnosed Date [...] after meals. Reviewed diet and exercise recommendations. 07/15/20244196-SIA-okzcucqg 2 fasting blood sugars and 3 post prandial breakfast; stable. Messaged to be consistent with testing four times daily and reporting. Will review again next week. 07/22/20242821-EAA-eqdkhva blood sugars overall stable (2 of 7 elevated fasting blood sugars). Reported only 5 post prandial numbers in the past week. Again messaged to be consistent with testing four times daily. Will schedule follow up ADAPT appointment next week if still with minimal post prandial reporting. 07/29/20247067-LMZ-lazazkc stable (< 50% fasting blood sugars elevated). Minimal post prandial values. Patient and [facility] PARs messaged to schedule follow up ADAPT appointment. 08/05/24: Follow-up ADAPT visit complete; minimal reporting in CH RPM; no blood sugars to review today - patient to send message with updated log; continue diet controlled; recommend Nutrition visit 08/15/20244236-MVI-fgq reporting. Sent message to patient and [facility] PARs to schedule follow up ADAPT appointment. [...] and reviewed importance of more consistent testing/reporting 09/02/20246535-WDV-qmj reporting. Sent message via [employer] and Blastbeat asking her to report. Sent message to [facility] PARs to schedule follow up ADAPT appointment. 09/06/2024 Follow up ADAPT compete; not reporting in Current Health Bonita or checking blood sugars consistently; blood sugars reported today are stable. Ask to commit to check blood sugars 4 times daily (if not at least always a fasting and one meal) and entering them into the [employer] Bonita. 09/09/20246559-TYV-wmx reporting. Sent message via [employer] and [employer] asking her to report. 09/16/24: Pt not reporting BG readings. State she will being readings to her [facility] appoint on 09/19/24 09/20/24: Scanned blood sugars reviewed; stable; however, minimal values reported and unclear if fasting or postprandial values; will ask [facility] PARS to offer patient ADAPT visit 09/23/20245782-YLX-aaf reporting in Current Health. Has follow up ADAPT appointment scheduled 10/07/2024 per maternal medicine nurse practitioners. 10/01/24: RPM reviewed; RPM-not reporting in Current Health. Has follow up ADAPT appointment scheduled 10/07/2024. My Purkinje message sent requesting updated blood sugars 10/07/24: Follow-up ADAPT visit complete; testing twice daily - of those reported, stable; continue diet controlled with more consistent testing/reporting; patient deferred scheduling F/U ADAPT visit at this time and states she will reporting in RPM 10/14/20242358-FVE-nni reporting in Current Health bonita. Sent message [...] Recommend nutrition consult with RDN (Registered Dietitian Manager Beauty). Lifestyle changes are also indicated including optimizing [...] patients who previously received 17P. Patient's primary ASSOCIATE STORE LEADER can coordinate therapy if desired. For patients [...] as of this encounter (statuses as of 10/28/2024) Resolved Problems Problem Noted Date Diagnosed Date Resolved Date with 24 completed weeks gestation 07/11/2024 09/09/2024 ADVANCE DIRECTIVE INFORMATION 04/09/2009 09/02/2024 Overview (04/09/2009): No, Advance Directive brochure offered , patient declined. Current with histo ry of pre-term labor 02/18/2009 06/28/2024 documented as of this encounter (statuses as of 10/28/2024) Immunizations Name Administration Dates Next Due RSV [...] money to get more. Never true 05/27/2024 [place] Depression Scale Answer Date Recorded [place] Depression Scale Total 3 09/09/2024 The thought [...] Sign Reading Time Taken Comments Blood Pressure 126/76 10/28/2024 11:25 AM EST Pulse - - Temperature - - Respiratory Rate - - Oxygen Saturation - - Inhaled Oxygen Concentration - - Weight 92.4 kg (203 lb 12.8 oz) 024 11:25 AM EST Height - - Body Mass Index 36.1 04/25/2024 8:49 AM EDT documented in this encounter Progress Notes * Charleen Su CRNP - 10/28/2024 11:26 AM EST ASSESSMENT assessment with Non-stress Test completed on 10/28/2024 at 40.3 weeks gestation for indication of obesity heart baseline: 140 bpm Variability: Moderate Decelerations: absent Accelerations: present Contractions: Present x2 NST start time: 1119 NST stop time: 1143 NST strip reviewed, interpreted, and approved by OB provider, JIGAR Leo . NST strip stored in clinic storage file Good movement. Denies regular ctx, leaking/bleeding. Induction is tomorrow. Return prn. JIGAR Leo * Isela Landry CMA - 10/28/2024 11:25 AM EST 40w3d Denies any concerns IOL scheduled for tomorrow 10/29. documented in this encounter Plan of Treatment [...] 4:31 PM 02/26/2009 8:21 PM Care Teams Production Control Technologist Relationship Specialty Start Date End Date Sandra Vega DO [address] [place] [address] PCP - General Family Medicine 10/17/12 documented as of this encounter
--- OUTSIDE RECORDS SUMMARY | 2024-10-29 08:05 | External Medical Summary | Summary of Care ---
Author Name Unknown Organization [facility] Address [address] [place] [address] Phone [phone] Care Team Providers Care Rabbit Breeder Name Role Phone Sandra Vega Primary Care Provider Reason for Visit * Reason Onset Date Comments Home Monitoring Alarm 10/29/2024 Encounter Details Date Type Department Care Team (Late st Contact Info) Description 10/29/2024 Home Monitoring Sales Assistant Entertainment And Media Obstetrics Maternal Medicine, [place] [address] [place] [address] Viviana Riggins CRNP [address] [place] [address] GDM (gestational diabetes mellitus)* Allergies Active Allergy Reactions Criticality Noted Date Comments Citalopram Hydrobromide Other (Please comment) 02/18/2009 Increases anxiety-celexa Cyclobenzaprine 04/26/2021 documented as of this encounter (statuses as of 10/29/2024) Medications 28-0.8 MG Oral Tablet Take by mouth. Active YPX Cay[employer] Holdings[employer]oom.[employer] Verio Flex System w/Device Kit Use to test blood sugars 4 times daily (fasting, 1 hour after breakfast, lunch, and dinner) 1 Kit 06/19/2024 Active YPX Cayman HoldingsTouch Verio In Vitro Strip (Glucose Blood) Use [...] as of this encounter (statuses as of 10/29/2024) Active Problems Problem Noted Date Diagnosed Date [...] attend. GDM (gestational diabetes mellitus) 06/24/2024 Overview (10/28/2024): Diagnosed at 21 weeks Nutrition consult declined [...] 07/11/24: MFM ADAPT consult complete. Enrolled in [employer]. Instructions provided to report blood sugars each week for MFM review; Discussed importance of testing FBS and 1 hour after meals. Reviewed diet and exercise recommendations. 07/15/20241287-WEY-lvjcarcr 2 fasting blood sugars and 3 post prandial breakfast; stable. Messaged to be consistent with testing four times daily and reporting. Will review again next week. 07/22/20245298-DLK-ogkyhcf blood sugars overall stable (2 of 7 elevated fasting blood sugars). Reported only 5 post prandial numbers in the past week. Again messaged to be consistent with testing four times daily. Will schedule follow up ADAPT appointment next week if still with minimal post prandial reporting. 07/29/20240349-LGX-qxxcozz stable (< 50% fasting blood sugars elevated). Minimal post prandial values. Patient and [facility] PARs messaged to schedule follow up ADAPT appointment. 08/05/24: Follow-up ADAPT visit complete; minimal reporting in RPM; no blood sugars to review today - patient to send message with updated log; continue diet controlled; recommend Nutrition visit 08/15/20242554-OVR-yqx reporting. Sent message to patient and [facility] PARs to schedule follow up ADAPT appointment. [...] and reviewed importance of more consistent testing/reporting 09/02/20248923-SFQ-xqq reporting. Sent message via [employer] and [employer] asking her to report. Sent message to [facility] PARs to schedule follow up ADAPT appointment. 09/06/2024 Follow up ADAPT compete; not reporting in Current ncyclo [place] or checking blood sugars consistently; blood sugars reported today are stable. Ask to commit to check blood sugars 4 times daily (if not at least always a fasting and one meal) and entering them into the [employer] Bonita. 09/09/20248726-DVR-ydk reporting. Sent message via [employer] and [employer] asking her to report. 09/16/24: Pt not reporting BG readings. State she will being readings to her [facility] appoint on 09/19/24 09/20/24: Scanned blood sugars reviewed; stable; however, minimal values reported and unclear if fasting or postprandial values; will ask [facility] PARS to offer patient ADAPT visit 09/23/20244061-BCH-hzh reporting in Current Health. Has follow up [...] and states she will reporting in RPM 10/14/20247360-VHU-ggt reporting in Current ncyclo bonita. Sent message asking her to update values. 10/21/24: RPM reviewed; not reports blood sugars in Current Health Bonita. Sent my chart message to update blood sugars 10/28/20242736-TDH-xwp reporting in bonita or responding to sent messages in [employer] chart bonita. Scheduled for induction of labor tomorrow morning. Assessment & Plan (10/17/2024 9:00 AM EST): [...] Recommend nutrition consult with RDN (Registered Dietitian Java Sdet). Lifestyle changes are also indicated including optimizing [...] patients who previously received 17P. Patient's primary PHARMACY MANAGER can coordinate therapy if desired. For patients [...] as of this encounter (statuses as of 10/29/2024) Resolved Problems Problem Noted Date Diagnosed Date Resolved Date with 24 completed weeks gestation 07/11/2024 09/09/2024 ADVANCE DIRECTIVE INFORMATION 04/09/2009 09/02/2024 Overview (04/09/2009): No, Advance Directive brochure offered , patient declined. Current with histo ry of pre-term labor 02/18/2009 06/28/2024 documented as of this encounter (statuses as of 10/29/2024) Immunizations Name Administration Dates Next Due RSV [...] money to get more. Never true 05/27/2024 [place] Depression Scale Answer Date Recorded [place] Depression Scale Total 3 09/09/2024 The thought [...] as of this encounter Progress Notes * Chinyere Flores LPN - 10/29/2024 7:38 AM EST Patient has been discharged from [facility] Diabetes in Home Monitoring Program - Delivery Date 10/29/24 . Chinyere Flores LPN documented in this encounter Plan of Treatment [...] ultrasonics 38 weeks gestation of state, incidental GDM (gestational diabetes mellitus)- Primary Abnormal maternal glucose tolerance, complicating , childbirth, or the puerperium, unspecified as to episode of care documented in this encounter Advance Directives * Full Code (Latest Code Status on File) Date Activated Date Inactivated Comments 02/18/2009 4:31 PM 02/26/2009 8:21 PM Care Teams Rabbit Breeder Relationship Specialty Start Date End Date Sandra Vega DO [address] [place] [address], [place] [address] PCP - General Family Medicine 10/17/12 documented as of this encounter
--- OUTSIDE RECORDS SUMMARY | 2024-10-29 08:05 | External Medical Summary | Continuity of Care Document ---
Author Name Unknown Organization [address] Address [address] [place] [phone] Care Team Providers Care Lead Sewage Plant Operator Name Role Phone Sandra Vega Primary Care Physician [phone] [id number] Date(s): 10/07/24 - 10/07/[address], [address] [address] [place] [phone] Encounter Diagnosis Body mass index [BMI] 36.0-36.9, adult(Discharge Diagnosis) - 10/07/24 BPPV (benign paroxysmal positional vertigo)(Discharge Diagnosis) - 10/07/24 Bronchitis(Discharge Diagnosis) - 10/07/24 Discharge Disposition: Home or Self Care Attending Physician: DO Vega Kristen M Referring Physician: DO Vega Kristen M Allergies, Adverse Reactions, Alerts Substance Criticality Severity Reaction Reaction Severity Status cyclobenzaprine 1 Ac tive CeleXA more anxiety Active 1palpitations, psychosis Assessment and Plan Extracted from: Title:Office Visit Note Author:DO Vega Kriste n M Date:10/07/24 1.BPPV (benign paroxysmal positional vertigo) Chronic condition, stable Goal:Resolution Data:unique tests ordered: _ Plan: _cont meclazine 2.Bronchitis Chronic condition, stable Goal:Resolution Data:unique tests ordered: _ Plan: _zpack 5 day Immunizations Given and Recorded Vaccine Date Status Refusal Reason SARS-CoV-2 (COVID-19) mRNA BNT-162b2 vax 06/15/21 Recorded tetanus/diphtheria/pertuss, acel (Tdap) 03/07/19 G iven tetanus/diphtheria/pertuss, acel (Tdap) 02/22/07 R ecorded human papillomavirus vaccine 04/02/08 Recorded human papillomavirus vaccine 10/18/07 Recorded human papillomavirus vaccine 08/14/07 Recorded meningococcal conjugate vaccine 02/22/07 Recorded hepatitis B pediatric vaccine 02/01/00 Recorded hepatitis B pediatric vaccine 08/31/99 Recorded hepatitis B pediatric vaccine 07/27/99 Recorded measles/mumps/rubella virus vaccine 07/27/99 Recor ded diphtheria/tetanus/pertuss, acel (DTaP) 09/04/95 R ecorded diphtheria/tetanus/pertuss, acel (DTaP) 89 R ecorded diphtheria/tetanus/pertuss, acel (DTaP) 89 R ecorded diphtheria/tetanus/pertuss, acel (DTaP) 89 R ecorded varicella virus vaccine 1 01/15/95 Recorded poliovirus vaccine, live, trivalent 09/04/90 Recor ded poliovirus vaccine, live, trivalent 89 Recor ded poliovirus vaccine, live, trivalent 89 Recor ded 1Result Comment: [08/08/2012] had disease Medications Antivert 25 mg oral tablet Start: 08/28/24 10:03:00 AM EDT, 1 tab, PO, tid, Disp# 30 tab, Refills: 1, PRN: as needed for dizziness, Pharmacy: [facility] Start Date: 08/28/24 Stop Date: 09/17/24 Status: Ordered Azithromycin 5 Day Dose Pack 250 mg oral tablet Start: 10/07/24 10:22:00 AM EST, See Instructions, Disp# 1 kit, Refills: 0, as directed on package labeling, Pharmacy: [facility] Start Date: 10/07/24 Status: Ordered Mental Status 10/07/24 Barriers to Learning one year None evide nt Mandatory Health Literacy Documentation Yes Health Literacy Communication Barriers N ever Primary Language Bulgarian Problem List Condition Confirmation Course Effective Dates Status H ealth Status Informant ANXIETY Confirmed Active Chronic nausea Confirmed 01/16/13 Active Chronic neck pain Confirmed Active Contact dermatitis Confirmed Active Depression during in first trimester Confirmed Active GERD Confirmed Active Hemorrhoid Confirmed Active Methicillin resistant Staphylococcus aureus infection 1 Confirmed 09/12/13 Active Migraine Confirmed 01/16/13 Active Tobacco use Confirmed Active Ulnar neuropathy of left upper extremity Confirmed Active Wound Culture Abscess 4+MRSA Diagnosis Diagnosis Type Effective Dates Health Status Clinical Service Informant Body mass index [BMI] 36.0-36.9, adult Discharge Diagnosis 10/07/24 Non-Specified BPPV (benign paroxysmal positional vertigo) Discharge Diagnosis 10/07/24 Non-Specified Bronchitis Discharge Diagnosis 10/07/24 Non-Specified Procedures Procedure Date Related Diagnosis Body Site Status Excision of Bartholin's cyst 1 04/21/22 Completed Groin abscess 2 04/21/22 Completed x-ray of si joint 3 08/24/19 Compl eted X-ray of cervical spine 4 10/22/18 Completed Ultrasound,pelvic 06/10/16 Complet ed Ultrasound kidneys and bladder 05/25/16 Completed Cholecystectomy Completed Hemorrhoidectomy Complete d IUD, copper Completed KUB X-ray Completed [place] tooth 5 Completed 1infected abscess of vulva 2excision and drainage of groin cyst and abscess 3Unremarkable sacroiliac joint x-ray. 4No significant bony abnormalities 5wisdom tooth extraction Vital Signs Most recent to oldest [Reference Range]: 1 Height 164.5 cm (10/07/24 10:00 AM) Patient Weight 97.6 kg (10/07/24 10:00 AM) Body Mass Index 36.07 kg/m2 (10/07/24 10:00 AM) Temperature [36.5-37.9 DegC] 36.2 DegC *LOW* (10/07/24 10:00 AM) Heart Rate 108 bpm (10/07/24 10:00 AM) Respiratory Rate 16 br/min (10/07/24 10:00 AM) Blood Pressure 108/80mmHg (10/07/24 10:00 AM) Cuff Pulse Pressure 28 mmHg (10/07/24 10:00 AM) Social History Social History Type Response Tobacco Current every day sm oker, Cigarettes, 0.5 per day. Started age 17 Years. Smoking Status Never smoked cigaret bree Sex Female Sex Representation Female (finding) [facility] Outpt Note * DO Vega Kristen M: PERFORM Event Display: [facility] Outpt Note Authored Date: [id number] Chief Complaint follow up on dizziness- improved History of Present Illness Pt presents to discuss her dizziness from last appt. She is due soon (18 days). She states she is still taking meclazine prn--not routinely. She stopped her zoloft bc it affected her by making her sleepy. 1.BPPV (benign paroxysmal positional vertigo) Chronic condition, stable Goal:Resolution Data:unique tests ordered: _ Plan: _I believe this may be PPPD PT--see if that happens meclizine prn zoloft increase to 75 Urine culture--pt states OB ordered one OB provider aware of both medications. Physical Exam Vitals & Measurements T:36.2C HR:108(Monitored) RR:16 BP:108/80 SpO2:99% HT:164.5cm WT:97.600kg(Dosing) WT:97.6kg BMI:36.07 PHQ2 Data(Data Documented on:10/07/2024 10:00) Emotional health assessment NEGATIVE Assessment/Plan 1.BPPV (benign paroxysmal positional vertigo) Chronic condition, stable Goal:Resolution Data:unique tests ordered: _ Plan: _cont meclazine 2.Bronchitis Chronic condition, stable Goal:Resolution Data:unique tests ordered: _ Plan: _zpack 5 day Attestation I spent4 mintime in previsit planning including prepping note and chart review . I spent13 time in face to face interaction with patient concerning the issues that brought them in today. I spent4 min time in post visit planning including finishing note and depart process Total time spent today on patient visit21 min Problem List/Past Medical History Ongoing ANXIETY Chronic nausea Chronic neck pain Contact dermatitis Depression during in first trimester GERD Hemorrhoid Methicillin resistant Staphylococcus aureus infection Migraine Tobacco use Ulnar neuropathy of left upper extremity Resolved Acne Acute sinus infection Allergic rhinitis Angular cheilitis Bacterial vaginosis Chronic UTI BLANCO (generalized anxiety disorder) Hx of obesity Hx of ovarian cyst MDRO (multiple drug resistant organisms) resistance Menstrual irregularity Plantar warts Recurrent sinus infections Scoliosis Skin lesion Tobacco abuse Vitamin D insufficiency Vitamin D insufficiency Weight disorder Procedure/Surgical History Excision of Bartholin's cyst| Service Date: 04/21/2022Groin abscess| Service Date: 04/21/2022x-ray of si joint| Service Date: 08/24/2019X-ray of cervical spine| Service Date: 10/22/2018Ultrasound,pelvic| Service Date: 06/10/2016Ultrasound kidneys and bladder| Service Date: 05/25/20 16CholecystectomyIUD, copperKUB X-rayWisdom toothHemorrhoidectomy Medications meclizine(Antivert 25 mg oral tablet), 25 mg= 1 tab, PO, tid, PRN, 1 refills sertraline(Zoloft 50 mg oral tablet), 50 mg= 1 tab, PO, Daily, 6 refills Allergies CeleXAmore anxiety cyclobenzaprine Social History Smoking Status Never smoked cigarettes Tobacco - High Risk Use:Current every day smoker Type:Cigarettes Tobacco use per day:0.5 Started at age:17Years Family History Cancer: PGF. Diabetes: MGM and PGF. Heart disease: PGF. High Blood Pressure: MGF. Health Status Family Member(s) Immunizations Vaccine Date Status SARS-CoV-2 (COVID-19) mRNA BNT-162b2 vax 06/15/2021 Recorded tetanus/diphtheria/pertuss, acel (Tdap) 03/07/2019 Given human papillomavirus vaccine 04/02/2008 Recorded human papillomavirus vaccine 10/18/2007 Recorded human papillomavirus vaccine 08/14/2007 Recorded tetanus/diphtheria/pertuss, acel (Tdap) 02/22/2007 Recorded meningococcal conjugate vaccine 02/22/2007 Recorded hepatitis B pediatric vaccine 02/01/2000 Recorded hepatitis B pediatric vaccine 08/31/1999 Recorded measles/mumps/rubella virus vaccine 07/27/1999 Recorded hepatitis B pediatric vaccine 07/27/1999 Recorded diphtheria/tetanus/pertuss, acel (DTaP) 09/04/1995 Recorded varicella virus vaccine 01/15/1995 Recorded Comments : [08/08/2012] had disease poliovirus vaccine, live, trivalent 09/04/1990 Recorded diphtheria/tetanus/pertuss, acel (DTaP) 1989 Recorded poliovirus vaccine, live, trivalent 1989 Recorded diphtheria/tetanus/pertuss, acel (DTaP) 1989 Recorded poliovirus vaccine, live, trivalent 1989 Recorded diphtheria/tetanus/pertuss, acel (DTaP) 1989 Recorded Recommendations Health Maintenance Pending(in the next year) OverDue Adult Influenza Vaccine due04/28/24and every 1year Due Adult COVID-19 Vaccination due10/07/24Unknown Frequency Adult Folic Acid Supplementation due10/07/24and every 3year Adult Social Determinants of Health Screening due10/07/24Unknown Frequency Satisfied(in the past 1 year) Satisfied Body Mass Index on10/07/24.Satisfied by OSEI Nolen Angela Electronic Signature on File Electronically Reviewed/Signed by: Sandra Vega DO Author Signature Dt/Tm:10/07/2024 10:31 AM Department of Family [place] [facility] [place] Care team information Care Team Personnel Name: DO Vega Kristen M Position: Physician - Family Med Member Role: Primary Care Provider Address: [address] [place] [address] Name: JIGAR Faulkner Shari A Position: Nurse Pract - Family Med Member Role: Lifetime Relationship Address: [address] [place] [address]"
--- OUTSIDE RECORDS SUMMARY | 2024-10-29 08:05 | External Medical Summary | Continuity of Care Document ---
Author Name Unknown Organization [address] Address [address] [place] [phone] Care Team Providers Care Manager Medical Writing Name Role Phone Sandra Vega Primary Care Physician [phone] [id number] Date(s): 10/07/24 - 10/07/[address], [address] [address] [place] [phone] Encounter Diagnosis Body mass index [BMI] 36.0-36.9, [...] 1, PRN: as needed for dizziness, Pharmacy: [facility] Start Date: 08/28/24 Stop Date: 09/17/24 Status: Ordered Azithromycin 5 Day Dose Pack 250 mg oral tablet Start: 10/07/24 10:22:00 AM EST, See Instructions, Disp# 1 kit, Refills: 0, as directed on package labeling, Pharmacy: [facility] Start Date: 10/07/24 Status: Ordered Mental Status 10/07/24 Barriers to Learning one year None evide nt Mandatory Health Literacy Documentation Yes Health Literacy Communication Barriers N ever Primary Language Kazakh Problem List Condition Confirmation Course Effective Dates [...] d IUD, copper Completed KUB X-ray Completed [place] tooth 5 Completed 1infected abscess of vulva [...] bree Sex Female Sex Representation Female (finding) [facility] Outpt Note * DO Vega Kristen M: PERFORM Event Display: [facility] Outpt Note Authored Date: [id number] Chief Complaint follow up on dizziness- improved [...] Dt/Tm:10/07/2024 10:31 AM Department of Family Medicine [facility] [place] Patient Care team information Care Team Personnel Name: DO Vega Kristen M Position: Physician - Family Med Member Role: Primary Care Provider Address: [address] [place] [address] Name: JIGAR Faulkner Shari A Position: Nurse Pract - Family Med Member Role: Lifetime Relationship Address: [address] [place] [address]"
--- OUTSIDE RECORDS SUMMARY | 2024-10-29 08:05 | External Medical Summary | Summary of Care ---
Author Name Unknown Organization [facility] Address [address] [place] [address] Phone [phone] Care Team Providers Care Jewelry Sales Representative Name Role Phone Sandra Vega Primary Care Provider Encounter Details Date Type Department Care Team (Late st Contact Info) Description 10/17/2024 8:00 AM EST Office Visit [facility] Maternal Medicine, [address] [place] [address] Anna Jara DO [address] [place] [address] Diet controlled gestational diabetes mellitus [...] MG Oral Tablet Take by mouth. Active LinguaLeo Flex System w/Device Kit Use to test blood sugars 4 times daily (fasting, 1 hour after breakfast, lunch, and dinner) 1 Kit 06/19/2024 Active nPulse Technologiesuch ExtendEventio In Vitro Strip (Glucose Blood) Use to test blood sugars 4 times daily (fasting, 1 hour after breakfast, lunch, and dinner) 125 Strip 6 06/19/2024 Active RettyTouch Delica Lancets 30G Use to test blood [...] MFM ADAPT consult complete. Enrolled in [employer]. Instructions provided to report blood sugars each week for MFM review; Discussed importance of testing FBS and 1 hour after meals. Reviewed diet and exercise recommendations. 07/15/[id number]-MAY-qsorbzat 2 fasting blood sugars and 3 post prandial breakfast; stable. Messaged to be consistent with testing four times daily and reporting. Will review again next week. 07/22/[id number]-PTS-inswref blood sugars overall stable (2 of 7 elevated fasting blood sugars). Reported only 5 post prandial numbers in the past week. Again messaged to be consistent with testing four times daily. Will schedule follow up ADAPT appointment next week if still with minimal post prandial reporting. 07/29/[id number]-vldlfmk stable (< 50% fasting blood sugars elevated). Minimal post prandial values. Patient and [facility] PARs messaged to schedule follow up ADAPT appointment. 08/05/24: Follow-up ADAPT visit complete; minimal reporting in RPM; no blood sugars to review today - patient to send message with updated log; continue diet controlled; recommend Nutrition visit 08/15/[id number]-ASA-qep reporting. Sent message to patient and [facility] PARs to schedule follow [...] and reviewed importance of more consistent testing/reporting 09/02/20244079-SWL-ync reporting. Sent message via [employer] and [employer] asking her to report. Sent message to [facility] PARs to schedule follow up ADAPT appointment. 09/06/2024 Follow up ADAPT compete; not reporting in [facility] or checking blood sugars consistently; blood sugars reported today are stable. Ask to commit to check blood sugars 4 times daily (if not at least always a fasting and one meal) and entering them into the [employer] [facility]. 09/09/[id number]-TCD-gzk reporting. Sent message via [employer] and [employer] asking her to report. 09/16/24: Pt not reporting BG readings. State she will being readings to her [facility] appoint on 09/19/24 09/20/24: Scanned blood sugars reviewed; stable; however, minimal values reported and unclear if fasting or postprandial values; will ask [facility] PARS to offer patient ADAPT visit 09/23/[id number]-PXP-yvb reporting in Current Health. Has follow up [...] and states she will reporting in RPM 10/14/20243686-SFJ-spc reporting in [facility]. Sent message [...] Recommend nutrition consult with RDN (Registered Dietitian Asset Protection Representative). Lifestyle changes are also indicated including optimizing [...] patients who previously received 17P. Patient's primary ASSISTANT SURVEYOR can coordinate therapy if desired. For patients [...] money to get more. Never true 05/27/2024 [place] Depression Scale Answer Date Recorded [place] Depression Scale Total 3 09/09/2024 The thought [...] Upcoming Encounters Date Type Department Care Team ([facility] st Contact Info) Description 10/24/2024 10:00 AM EST Office Visit Gynecology/Obstetrics [facility] [address] [place] [address] Dee Tam PA-C [address] [place] [address] Rambo, Non Stress Tests Yo [address] [place] [address] Health Maintenance Due Date Last Done Comments [...] 4:31 PM 02/26/2009 8:21 PM Care Teams Jewelry Sales Representative Relationship Specialty Start Date End Date Sandra Vega DO [address] [facility] [address] [place] [address] [place] [address], [place] [address] PCP - General Family Medicine 10/17/12 documented as of this encounter
--- OUTSIDE RECORDS SUMMARY | 2024-10-29 08:06 | External Medical Summary | Summary of Care ---
Author Name Unknown Organization [facility] Address [address] [facility] [place] [address] Phone [phone] Care Team Providers Care Draw Tender Name Role Phone Sandra Vega Primary Care Provider Reason for Visit * Reason Comments Return Visit Encounter Details Date Type Department Care Team (Late st Contact Info) Description 10/01/2024 8:30 AM EST Office Visit Gynecology/Obstetric s [facility] [address] [place] [address] BackerCharleen CRNP [address] [place] [address] Supervision of high risk in third trimester*; [...] as of this encounter (statuses as of 10/01/2024) Medications 28-0.8 MG Oral Tablet Take by mouth. Active Re[employer]osTo[employer] Verio Flex System w/Device Kit Use to test blood sugars 4 times daily (fasting, 1 hour after breakfast, lunch, and dinner) 1 Kit 06/19/2024 Active ReceptosTouch Verio In Vitro Strip (Glucose Blood) Use [...] as of this encounter (statuses as of 10/01/2024) Active Problems Problem Noted Date Diagnosed Date [...] attend. GDM (gestational diabetes mellitus) 06/24/2024 Overview (09/23/2024): Diagnosed at 21 weeks Nutrition consult declined [...] 07/11/24: MFM ADAPT consult complete. Enrolled in [facility]. Instructions provided to report blood sugars each week for MFM review; Discussed importance of testing FBS and 1 hour after meals. Reviewed diet and exercise recommendations. 07/15/[id number]-LCD-jzieuoqk 2 fasting blood sugars and 3 post prandial breakfast; stable. Messaged to be consistent with testing four times daily and reporting. Will review again next week. 07/22/[id number]-MGC-hpieftw blood sugars overall stable (2 of 7 elevated fasting blood sugars). Reported only 5 post prandial numbers in the past week. Again messaged to be consistent with testing four times daily. Will schedule follow up ADAPT appointment next week if still with minimal post prandial reporting. 07/29/[id number]-BVL-fxzjjuu stable (< 50% fasting blood sugars elevated). Minimal post prandial values. Patient and [facility] PARs messaged to schedule follow up ADAPT appointment. 08/05/24: Follow-up ADAPT visit complete; minimal reporting in [facility] RPM; no blood sugars to review today - patient to send message with updated log; continue diet controlled; recommend Nutrition visit 08/15/[id number]-TQR-ugf reporting. Sent message to patient and [facility] PARs to schedule [...] and reviewed importance of more consistent testing/reporting 09/02/20247929-LAZ-hvk reporting. Sent message via [employer] asking her to report. Sent message to [facility] PARs to schedule follow up ADAPT appointment. 09/06/2024 Follow up ADAPT compete; not reporting in [facility] or checking blood sugars consistently; blood sugars reported today are stable. Ask to commit to check blood sugars 4 times daily (if not at least always a fasting and one meal) and entering them into the [employer] [place]. 09/09/[id number]-PRC-let reporting. Sent message via [employer] asking her to report. 09/16/24: Pt not reporting BG readings. State she will being readings to her [facility] appoint on 09/19/24 09/20/24: Scanned blood sugars reviewed; stable; however, minimal values reported and unclear if fasting or postprandial values; will ask [facility] PARS to offer patient ADAPT visit 09/23/[id number]-OVN-yra reporting in Current Health. Has follow up ADAPT appointment scheduled 10/07/2024 per maternal medicine nurse practitioners. Assessment & Plan (09/19/2024 10:19 AM EST): [...] Recommend nutrition consult with RDN (Registered Dietitian Appellate Conferee). Lifestyle changes are also indicated including optimizing [...] patients who previously received 17P. Patient's primary BUYER INTERNSHIP can coordinate therapy if desired. For patients [...] as of this encounter (statuses as of 10/01/2024) Resolved Problems Problem Noted Date Diagnosed Date Resolved Date with 24 completed weeks gestation 07/11/2024 09/09/2024 ADVANCE DIRECTIVE INFORMATION 04/09/2009 09/02/2024 Overview (04/09/2009): No, Advance Directive brochure offered , patient declined. Current with histo ry of pre-term labor 02/18/2009 06/28/2024 documented as of this encounter (statuses as of 10/01/2024) Immunizations Name Administration Dates Next Due RSV [...] money to get more. Never true 05/27/2024 [place] Depression Scale Answer Date Recorded [place] Depression Scale Total 3 09/09/2024 The thought [...] Sign Reading Time Taken Comments Blood Pressure 104/62 10/01/2024 8:25 AM EST Pulse - - Temperature - - Respiratory Rate - - Oxygen Saturation - - Inhaled Oxygen Concentration - - Weight 91.2 kg (201 lb) 10/01/2024 8:25 AM EST Height - - Body Mass Index 35.61 04/25/2024 8:49 AM EDT documented in this encounter Progress Notes * Charleen Su CRNP - 10/01/2024 8:32 AM EST 36w4d Baby moving normally. No ctx, leaking/bleeding. Has labor instructions. Seeing ADAPT next week for GDM follow up. Next u/s is 10/17. Start NSTs with next visit. Green Chain Marker Documentation Provider requested chief design branch. Name of chief design branch: JIGAR Pierce documented in this encounter Plan of Treatment Upcoming Encounters Date Type Department Care Team (Late st Contact Info) Description 10/07/2024 8:10 AM EST Telemedicine Primary Care Nurse Practitioner Obstetric MFM [facility] [address] [facility] [place] [address] Dee Holder CRNP [address] [place] [address] 10/09/2024 9:00 AM EST Office Visit Gynecology/Obstetrics [facility] [address] [place] [address] Mary Weathers CRNP [address] [place] [address] Rambo, Non Stress Tests Yo [address] [place] [address] 10/16/2024 9:00 AM EST Office Visit Gynecology/Obstetrics [facility] Ricks [address] [place] [address] Mary Weathers CRNP [address] [place] [address] Rambo, Non Stress Tests Yo [address] [place] [address] 10/17/2024 8:00 AM EST Imaging Maternal Medicine Imaging, Yo Ricks [address] [place] [phone] Pending Results Name Type Priority Associated Diagnoses Date /Time GROUP B STREP CULTURE/PCR Lab Routine Supervision of high risk in third trimester 10/01/2024 8:40 AM EST Scheduled Orders Name Type Priority Associated Diagnoses Orde r Schedule GROUP B STREP CULTURE/PCR Lab Routine Supervision of high risk in third trimester Expected: 10/01/2024, Expires: 10/01/2025 Health Maintenance Due Date Last Done Comments [...] 4:31 PM 02/26/2009 8:21 PM Care Teams Draw Tender Relationship Specialty Start Date End Date Sandra Vega DO [address] [place] [address] PCP - General Family Medicine 10/17/12 documented as of this encounter
--- OUTSIDE RECORDS SUMMARY | 2024-10-29 08:06 | External Medical Summary | Summary of Care ---
Author Name Unknown Organization [facility] Address [address] [place] [address] Phone [phone] Care Team Providers Care Results Technician Name Role Phone Sandra Vega Primary Care Provider Encounter Details Date Type Department Care Team (Late st Contact Info) Description 09/19/2024 8:00 AM EST Office Visit Orthopedic Coder Obstetrics Maternal Medicine, [address] [address] Anna Jara DO [address] [place] [address] Diet controlled gestational diabetes mellitus (GDM) in third trimester*; Obesity in , antepartum; Ultrasound for screening for growth restriction; 34 weeks gestation of Allergies Active Allergy Reactions Criticality Noted Date Comments Citalopram Hydrobromide Other (Please comment) 02/18/2009 Increases anxiety-celexa Cyclobenzaprine 04/26/2021 documented as of this encounter (statuses as of 09/19/2024) Medications 28-0.8 MG Oral Tablet Take by mouth. Active [place] [facility] Verio Flex System w/Device Kit Use to test blood sugars 4 times daily (fasting, 1 hour after breakfast, lunch, and dinner) 1 Kit 06/19/2024 Active [employer] Verio In Vitro Strip (Glucose Blood) Use to test blood sugars 4 times daily (fasting, 1 hour after breakfast, lunch, and dinner) 125 Strip 6 06/19/2024 Active [employer] Delica Lancets 30G Use to test blood [...] 3 times a day as needed. Active documented as of this encounter (statuses as of 09/19/2024) Active Problems Problem Noted Date Diagnosed Date , supervision, high-risk 06/28/2024 Obesity in , [...] attend. GDM (gestational diabetes mellitus) 06/24/2024 Overview (09/16/2024): Diagnosed at 21 weeks Nutrition consult declined [...] after meals. Reviewed diet and exercise recommendations. 07/15/20241783-ACH-nbskgnne 2 fasting blood sugars and 3 post prandial breakfast; stable. Messaged to be consistent with testing four times daily and reporting. Will review again next week. 07/22/20247319-DWE-hzbzvkw blood sugars overall stable (2 of 7 elevated fasting blood sugars). Reported only 5 post prandial numbers in the past week. Again messaged to be consistent with testing four times daily. Will schedule follow up ADAPT appointment next week if still with minimal post prandial reporting. 07/29/[id number]-XHY-eaaiqew stable (< 50% fasting blood sugars elevated). Minimal post prandial values. Patient and [facility] messaged to schedule follow up ADAPT appointment. 08/05/24: Follow-up ADAPT visit complete; minimal reporting in [facility] RPM; no blood sugars to review today - patient to send message with updated log; continue diet controlled; recommend Nutrition visit 08/15/20248411-XQK-snk reporting. Sent message to patient and [facility] to schedule follow [...] and reviewed importance of more consistent testing/reporting 09/02/20241730-YBC-ggn reporting. Sent message via [employer] and [employer] asking her to report. Sent message to [facility] to schedule follow up ADAPT appointment. 09/06/2024 Follow up ADAPT compete; not reporting in [facility] or checking blood sugars consistently; blood sugars reported today are stable. Ask to commit to check blood sugars 4 times daily (if not at least always a fasting and one meal) and entering them into the Current [employer] [facility]. 09/09/20247473-BAN-bdk reporting. Sent message via [employer] and [employer] asking her to report. 09/16/24: Pt not reporting BG readings. State she will being readings to her [facility] appoint on 09/19/24 Assessment & Plan (09/19/2024 10:19 AM EST): [...] Recommend nutrition consult with RDN (Registered Dietitian Bobbin Collector). Lifestyle changes are also indicated including optimizing [...] patients who previously received 17P. Patient's primary RECREATIONAL THERAPIST can coordinate therapy if desired. For patients [...] health services as clinically indicated. Cholelithiasis 10/17/2012 Estimated Date of Delivery Comme nts Yes 10/25/2024 Based on Ultraso und documented as of this encounter (statuses as of 09/19/2024) Resolved Problems Problem Noted Date Diagnosed Date Resolved Date with 24 completed weeks gestation 07/11/2024 09/09/2024 ADVANCE DIRECTIVE INFORMATION 04/09/2009 09/02/2024 Overview (04/09/2009): No, Advance Directive brochure offered , patient declined. Current with histo ry of pre-term labor 02/18/2009 06/28/2024 documented as of this encounter (statuses as of 09/19/2024) Immunizations Name Administration Dates Next Due TDAP, Age 7 and older, IM (Adacel) [...] money to get more. Never true 05/27/2024 [place] Depression Scale Answer Date Recorded [place] Depression Scale Total 3 09/09/2024 The thought [...] 05/27/2024 Does the household have a re lar source of income? (Household - for ages [...] Progress Notes * Anna Jara DO - 09/19/2024 10:19 AM EST Priyanka presented today at 34w6d for an ultrasound for the following indications: Diet controlled gestational diabetes mellitus (GDM) in third trimester Assessment & Plan: Provided sugars at her visit today. Obesity in , antepartum Ultrasound for screening for growth restriction 34 weeks gestation of Ultrasound summary: Patient presented at 34w 6d for growth assessment. Normal growth with EFW 2325 g at 24%ile. Normal ROSA at 16.4 cm. Cephalic presentation. I reviewed the ultrasound images. Priyanka was given the opportunity to meet with me if she had any questions. Please refer to the ultrasound report for additional details about today's ultrasound examination. RECOMMENDATIONS: Recommend follow up ultrasound with MFM in 4 weeks for growth secondary to above indications. Weekly NSTs. See prior formal MFM consultation note. Thank you for allowing us to participate in the care of this patient. Please call with any questions. Anna Jara DO 09/19/2024 10:19 AM documented in this encounter Miscellaneous Notes * Assessment & Plan Note - Anna Jara DO - 09/19/2024 10:19 AM EST Associated Problem(s): GDM (gestational diabetes mellitus) Provided sugars at her visit today. documented in this encounter Plan of Treatment Upcoming Encounters Date Type Department Care Team (Late st Contact Info) Description 09/23/2024 8:30 AM EST Office Visit Gynecology/Obstetrics [facility] [address] [place] [address] Charleen Su CRNP [address] [place] [address] 10/01/2024 8:30 AM EST Office Visit Gynecology/Obstetrics [facility] [address] [place] [address] Charleen Su CRNP [address] [place] [address] 10/09/2024 9:00 AM EST Office Visit Gynecology/Obstetrics [facility] [address] [place] [address] Mary Weathers CRNP [address] [place] [address] Rambo, Non Stress Tests Yo [address] [place] [address] 10/16/2024 9:00 AM EST Office Visit Gynecology/Obstetrics [facility] [address] [place] [address] Mary Weathers CRNP [address] [place] [address] Ricks, Non Stress Tests [facility] [address] [place] [address] 10/17/2024 8:00 AM EST Imaging Maternal Medicine Imaging, [address] [place] [phone] Health Maintenance Due Date Last Done Comments [...] ultrasonics 34 weeks gestation of state, incidental documented in this encounter Advance Directives * Full Code (Latest Code Status on File) Date Activated Date Inactivated Comments 02/18/2009 4:31 PM 02/26/2009 8:21 PM Care Teams Results Technician Relationship Specialty Start Date End Date Sandra Vega DO [facility] [place] [address] [address] PCP - General Family Medicine 10/17/12 documented as of this encounter
--- OUTSIDE RECORDS SUMMARY | 2024-10-29 08:06 | External Medical Summary | Summary of Care ---
Author Name Unknown Organization [facility] Address [address] [place] [address] Phone [phone] Care Team Providers Care Compensation And Hris Analyst Name Role Phone Sandra Vega Primary Care Provider Reason for Visit * Reason Comments Follow Up Gestational diabetes Encounter Details Date Type Department Care Team ([facility] st Contact Info) Description 10/07/2024 8:10 AM EST Telemedicine Prescription Benefit Specialist Obstetric MFM [facility] [address] [place] [phone] Dee Holder CRNP [address] [place] [address] Supervision of high risk in third trimester*; 37 weeks gestation of ; Diet controlled gestational diabetes mellitus (GDM) in third trimester Allergies Active Allergy Reactions Criticality Noted Date Comments Citalopram Hydrobromide Other (Please comment) 02/18/2009 Increases anxiety-celexa Cyclobenzaprine 04/26/2021 documented as of this encounter (statuses as of 10/07/2024) Medications 28-0.8 MG Oral Tablet Take by mouth. Active [employer] Flex System w/Device Kit Use to test blood sugars 4 times daily (fasting, 1 hour after breakfast, lunch, and dinner) 1 Kit 06/19/2024 Active [employer] In Vitro Strip (Glucose Blood) Use to test blood sugars 4 times daily (fasting, 1 hour after breakfast, lunch, and dinner) 125 Strip 6 06/19/2024 Active [employer] Delica Lancets 30G Use to test blood [...] as of this encounter (statuses as of 10/07/2024) Active Problems Problem Noted Date Diagnosed Date [...] 07/11/24: MFM ADAPT consult complete. Enrolled in [employer]. Instructions provided to report blood sugars each week for MFM review; Discussed importance of testing FBS and 1 hour after meals. Reviewed diet and exercise recommendations. 07/15/[id number]-KLW-fqdzxhek 2 fasting blood sugars and 3 post prandial breakfast; stable. Messaged to be consistent with testing four times daily and reporting. Will review again next week. 07/22/[id number]-LHO-odprcpq blood sugars overall stable (2 of 7 elevated fasting blood sugars). Reported only 5 post prandial numbers in the past week. Again messaged to be consistent with testing four times daily. Will schedule follow up ADAPT appointment next week if still with minimal post prandial reporting. 07/29/[id number]-VNI-sjestwb stable (< 50% fasting blood sugars elevated). Minimal post prandial values. Patient and [facility] messaged to schedule follow up ADAPT appointment. 08/05/24: Follow-up ADAPT visit complete; minimal reporting in RPM; no blood sugars to review today - patient to send message with updated log; continue diet controlled; recommend Nutrition visit 08/15/[id number]-WQI-zwy reporting. Sent message to patient and [facility] to schedule follow up ADAPT appointment. [...] and reviewed importance of more consistent testing/reporting 09/02/20246018-OQL-woc reporting. Sent message via [employer] and [employer] asking her to report. Sent message to [facility] to schedule follow up ADAPT appointment. 09/06/2024 Follow up ADAPT compete; not reporting in Current [employer] [facility] or checking blood sugars consistently; blood sugars reported today are stable. Ask to commit to check blood sugars 4 times daily (if not at least always a fasting and one meal) and entering them into the [employer] [facility]. 09/09/[id number]-BCZ-scs reporting. Sent message via [employer] and [employer] asking her to report. 09/16/24: Pt not reporting BG readings. State she will being readings to her [facility] appoint on 09/19/24 09/20/24: Scanned blood sugars reviewed; stable; however, minimal values reported and unclear if fasting or postprandial values; will ask [facility] PARS to offer patient ADAPT visit 09/23/20242083-AGG-qer reporting in Current [facility]. Has follow up [...] and states she will reporting in RPM Assessment & Plan (09/19/2024 10:19 AM [...] Recommend nutrition consult with RDN (Registered Dietitian Machine Oiler). Lifestyle changes are also indicated including optimizing [...] completed). H/O delivery, currently 024 Overview (07/11/2024): 2009: history of delivery at 29 weeks due [...] patients who previously received 17P. Patient's primary RETAIL GIFT CARD MERCHANDISING can coordinate therapy if desired. For patients [...] as of this encounter (statuses as of 10/07/2024) Resolved Problems Problem Noted Date Diagnosed Date Resolved Date with 24 completed weeks gestation 07/11/2024 09/09/2024 ADVANCE DIRECTIVE INFORMATION 04/09/2009 09/02/2024 Overview (04/09/2009): No, Advance Directive brochure offered , patient declined. Current with histo ry of pre-term labor 02/18/2009 06/28/2024 documented as of this encounter (statuses as of 10/07/2024) Immunizations Name Administration Dates Next Due RSV [...] money to get more. Never true 05/27/2024 [place] Depression Scale Answer Date Recorded [place] Depression Scale Total 3 09/09/2024 The thought [...] as of this encounter Progress Notes * Dee Holder CRNP - 10/07/2024 8:19 AM EST MATERNAL MEDICINE VISIT Patient location: HOME. I was in a hospital or clinic location. After connecting through [employer],patient was verified with two unique identifiers. Patient (or authorized legal billing customer service representative) was then informed that this was a Telemedicine visit and being conducted confidentially over secure lines. Methods to assure confidentiality were taken. Patient acknowledged consent and understanding of pr ivacy and security of the Telemedicine visit. The patient agreed to participate. Priyanka Hooks is a 34 year old year old with intrauterine at 37w3d who presents to [facility] for management of diabetes in . CC/HPI: Here for f/u visit. Current issues include: inconsistent testing and reporting - reports she is testing blood sugar twice daily (fasting and after-dinner) Current management: diet controlled Diet: gestational diabetes diet Exercise: walking Recent growth scan: [facility] US: 09/19/2024 at 34w6d ROSA: 16.4 cm EFW: 2325g (24% [place]) Glucose review: She reports her home blood glucose as following: DATE Fasting 1 hr after Breakfast 1 hr after Lunch 1 hr after Dinner 09/26/24 88 x x 120 09/27/24 88 x x 123 09/28/24 86 x x 117 09/29/24 84 x x 122 09/30/24 92 x x 114 10/01/24 90 x x 120 10/02/24 84 x x 126 10/03/24 84 x x 117 10/04/24 86 x x 119 10/06/24 87 x x 117 10/07/24 88 x x x Hypoglycemia episodes: Yes x 1 - reports on Black Monday she was out shopping and had skipped breakfast and her blood sugar dropped to 56 - had sweet tea and lunch and it recovered well REVIEW OF SYSTEMS: headaches: no nausea/vomiting: denies reports movement: yes abdominal pain/tenderness/cramping/contractions: no vaginal bleeding: no vaginal leaking of fluid: no all other systems negative PHYSICAL EXAM: LMP (LMP Unknown) Constitutional: pleasant, well-developed, well nourished General: pleasant, alert and oriented Neuro: mood and affect normal, alert and oriented, no acute distress DISCUSSION: -We discussed the importance of testing and reporting blood sugars 4 times a day (fasting, one hourafter breakfast, lunch, and dinner). -Briefly reviewed GDM diet recommendations including, avoiding processed sugars, sweetened drinks, white flour. -We discussed the sign and symptoms of hypoglycemia (low blood sugar which is <70) and how to respond. If this should happen, we recommend the Rule of 15: 1) Test blood sugar. 2) Eat 15 grams of carbohydrate (choose one) --3 glucose tablets --4-6 oz of juice --8 oz of skim or low-fat milk --6 saltines 3) Wait 15 minutes. 4) Retest blood glucose. 5) If blood glucose less than 80 mg/dl, repeat above steps. -Recommend eating a snack to help with sugar control in the fasting timeframe. -Encouraged 20-30 minutes a day of exercise (walking, light upper body strength training, yoga, stationary cycling, or swimming). -We discussed the goal of euglycemia in order to create a stable environment for the fetus. She is aware that with diabetes are at increased risk for multiple complications to both mother and fetus. -I encouraged the patient to reach out to MFM in the event that she has any questions regarding diabetes management. RECOMMENDATIONS: Management: continue diet controlled with more consistent testing/reporting Scheduled on 10/17/2024 with M for growth scan. Recommend weekly NSTs for class II obesity. Follow up for glucose management in 1 week via [facility]. Patient deferred scheduling a follow up ADAPT (Advanced Diabetes And Team) at this time. Thank you for allowing us to participate in the care of this patient. Please call with any questions. JIGAR Serrano 10/07/2024 8:34 AM documented in this encounter Plan of Treatment Upcoming Encounters Date Type Department Care Team (Late st Contact Info) Description 10/09/2024 9:00 AM EST Office Visit Gynecology/Obstetrics [address] [place] [address] Mary Weathers CRNP [address] [place] [address] Rambo, Non Stress Tests [address] [place] [address] 10/16/2024 9:00 AM EST Office Visit Gynecology/Obstetrics [facility] [address] [place] [address] Mary Weathers CRNP [address] [place] [address] Ricks Non Stress Tests [address] [place] [address] 10/17/2024 8:00 AM EST Imaging Maternal Medicine Imaging, [address] [place] [phone] Health Maintenance Due Date Last Done Comments [...] risk in third trimester- Primary Unspecified high-risk 37 weeks gestation of state, incidental Diet controlled gestational diabetes mellitus (GDM) in third trimester documented in this encounter Advance Directives * Full Code (Latest Code Status on File) Date Activated Date Inactivated Comments 02/18/2009 4:31 PM 02/26/2009 8:21 PM Care Teams Compensation And Hris Analyst Relationship Specialty Start Date End Date Sandra Vega DO [address] [facility] [place] [address] PCP - General Family Medicine 10/17/12 documented as of this encounter
--- OUTSIDE RECORDS SUMMARY | 2024-10-29 08:06 | External Medical Summary | Summary of Care ---
Author Name Unknown Organization [facility] Address [address] [facility] [place] [address] Phone [phone] Care Team Providers Care Pcb Designer Name Role Phone Sandra Vega Primary Care Provider Reason for Visit * Reason Comments Return Visit Encounter Details Date Type Department Care Team (Late st Contact Info) Description 09/23/2024 8:30 AM EST Office Visit Gynecology/Obstetric s [facility] [address] [place] [address] BackerCharleen CRNP [address] [place] [address] Supervision of high risk in third trimester*; Diet controlled gestational diabetes mellitus (GDM) in third trimester; H/O delivery, currently ; Multigravida of advanced maternal age in third trimester; Depression complicating , antepartum; Obesity in , antepartum; HSV infection; Need for prophylactic vaccination and inoculation against respiratory syncytial virus (RSV) Allergies Active Allergy Reactions Criticality Noted Date Comments Citalopram Hydrobromide Other (Please comment) 02/18/2009 Increases anxiety-celexa Cyclobenzaprine 04/26/2021 documented as of this encounter (statuses as of 09/23/2024) Medications 28-0.8 MG Oral Tablet Take by mouth. Active DepoMed Verio Flex System w/Device Kit Use to test blood sugars 4 times daily (fasting, 1 hour after breakfast, lunch, and dinner) 1 Kit Active Web Performanceuch Verio In Vitro Strip (Glucose Blood) Use to test blood sugars 4 times daily (fasting, 1 hour after breakfast, lunch, and dinner) 125 Strip 6 4 Active OneTouch Delica Lancets 30G Use to test blood sugars 4 times daily (fasting, 1 hour after breakfast, lunch, and dinner) 200 Each 6 4 Active Sertraline HCl 25 MG Oral Tablet (Zoloft) Take 1 Tablet by mouth in the morning. 4 Active busPIRone HCl 5 MG Oral Tablet [...] 1 Tablet before bedtime. 60 Tablet 1 4 Active valACYclovir HCl 500 MG Oral Tablet (Valtrex) Take 1 Tablet by mouth in the morning and 1 Tablet before bedtime. 60 Tablet 1 4 09/23/20 24 Discontinu ed(Refill) documented as of this encounter (statuses as of 09/23/2024) Active Problems Problem Noted Date Diagnosed Date [...] attend. GDM (gestational diabetes mellitus) 06/24/2024 Overview (09/20/2024): Diagnosed at 21 weeks Nutrition consult declined [...] after meals. Reviewed diet and exercise recommendations. 07/15/[id number]-[id number]-dzzvnfau 2 fasting blood sugars and 3 post prandial breakfast; stable. Messaged to be consistent with testing four times daily and reporting. Will review again next week. 07/22/[id number]-OZN-dpkivam blood sugars overall stable (2 of 7 elevated fasting blood sugars). Reported only 5 post prandial numbers in the past week. Again messaged to be consistent with testing four times daily. Will schedule follow up ADAPT appointment next week if still with minimal post prandial reporting. 07/29/[id number]-GWC-hdmpeek stable (< 50% fasting blood sugars elevated). Minimal post prandial values. Patient and [facility] PARs messaged to schedule follow up ADAPT appointment. 08/05/24: Follow-up ADAPT visit complete; minimal reporting in [facility] RPM; no blood sugars to review today - patient to send message with updated log; continue diet controlled; recommend Nutrition visit 08/15/[id number]-ICN-kzz reporting. Sent message to patient and [facility] PARs to schedule follow up ADAPT appointment. [...] and reviewed importance of more consistent testing/reporting 09/02/20245090-ROB-wtk reporting. Sent message via [employer] and [employer] asking her to report. Sent message to [facility] PARs to schedule follow up ADAPT appointment. 09/06/2024 Follow up ADAPT compete; not reporting in [facility] or checking blood sugars consistently; blood sugars reported today are stable. Ask to commit to check blood sugars 4 times daily (if not at least always a fasting and one meal) and entering them into the [employer] [facility]. 09/09/[id number]-XEW-esj reporting. Sent message via [employer] and [employer] asking her to report. 09/16/24: Pt not reporting BG readings. State she will being readings to her [facility] appoint on 09/19/24 09/20/24: Scanned blood sugars reviewed; stable; however, minimal values reported and unclear if fasting or postprandial values; will ask [facility] PARS to offer patient ADAPT visit Assessment & Plan (09/19/2024 10:19 AM EST): [...] Recommend nutrition consult with RDN (Registered Dietitian Wood Molder). Lifestyle changes are also indicated including optimizing [...] patients who previously received 17P. Patient's primary CLOTH BLEACHING SUPERVISOR can coordinate therapy if desired. For patients [...] as of this encounter (statuses as of 09/23/2024) Resolved Problems Problem Noted Date Diagnosed Date Resolved Date with 24 completed weeks gestation 07/11/2024 09/09/2024 ADVANCE DIRECTIVE INFORMATION 04/09/2009 09/02/2024 Overview (04/09/2009): No, Advance Directive brochure offered , patient declined. Current with histo ry of pre-term labor 02/18/2009 06/28/2024 documented as of this encounter (statuses as of 09/23/2024) Immunizations Name Administration Dates Next Due RSV [...] money to get more. Never true 05/27/2024 [place] Depression Scale Answer Date Recorded [place] Depression Scale Total 3 09/09/2024 The thought [...] Sign Reading Time Taken Comments Blood Pressure 116/70 09/23/2024 8:43 AM EST Pulse - - Temperature - - Respiratory Rate - - Oxygen Saturation - - Inhaled Oxygen Concentration - - Weight 91.2 kg (201 lb) 09/23/2024 8:43 AM EST Height - - Body Mass Index 35.61 04/25/2024 8:49 AM EDT documented in this encounter Progress Notes * Charleen Su CRNP - 09/23/2024 8:53 AM EST 35w3d Baby moving well. Had some ctx over the weekend, have subsided. No leaking/bleeding. Will start Valtrex, rx sent. Follows with MFM. Irregularly checking blood sugars - reports fasting levels are in the 80s. Has a growth scan scheduled. Counseled on RSV vaccine, accepts. 1 week return, discussed GBS test. JIGAR Leo documented in this encounter Nursing Notes * Tiarra Carter LPN - 09/23/2024 9:02 AM EST Patient here for RSV injection. Patient doing well no complaints. Injection given IM as ordered. Patient tolerated well. Patient to follow up as directed. Patient instructed to call if any complications. Patient verbalized understanding of instructions given. Injection site: Right Deltoid Medication Source: Dispensed stock medication documented in this encounter Plan of Treatment Upcoming Encounters Date Type Department Care Team (Late st Contact Info) Description 10/01/2024 8:30 AM EST Office Visit Gynecology/Obstetrics [facility] [address] [address] Charleen Su CRNP [address] [place] [address] 10/07/2024 8:10 AM EST Telemedicine Patient Access Representative Obstetric [facility] [address] Kalpesh Delaney [address] [place] [phone] Dee Holder CRNP [address] [place] [address] 10/09/2024 9:00 AM EST Office Visit Gynecology/Obstetrics [facility] [address] [facility] [place] [address] Mary Weathers CRNP [address] [place] [address] [facility], Non Stress Tests [facility] [address] [place] [address] 10/16/2024 9:00 AM EST Office Visit Gynecology/Obstetrics [facility] [address] [place] [address] Mary Weathers CRNP [address] [place] [address] [facility], Non Stress Tests [facility] [address] [place] [address] 10/17/2024 8:00 AM EST Imaging Maternal Medicine Imaging, [place] [address] [place] [id number] Health Maintenance Due Date Last Done Comments [...] or the puerperium, antepartum condition or complication HSV infection Herpes simplex without mention of complication Need for prophylactic vaccination and inoculation against respiratory syncytial virus (RSV) documented in this encounter Advance Directives * Full Code (Latest Code Status on File) Date Activated Date Inactivated Comments 02/18/2009 4:31 PM 02/26/2009 8:21 PM Care Teams Pcb Designer Relationship Specialty Start Date End Date Sandra Vega DO [address] [place] [address] [address] PCP - General Family Medicine 10/17/12 documented as of this encounter
--- OUTSIDE RECORDS SUMMARY | 2024-10-29 08:06 | External Medical Summary | Summary of Care ---
Author Name Unknown Organization [facility] Address [address] [facility] [place] [address] Phone [phone] Care Team Providers Care Computer Tech Name Role Phone Sandra Vega Primary Care Provider Reason for Visit * Reason Comments Return Visit Encounter Details Date Type Department Care Team (Late st Contact Info) Description 09/17/2024 11:45 AM EST Office Visit Gynecology/Obstetric s [facility] [address] [place] [address] BackerCharleen CRNP [address] [place] [address] Supervision of high risk in third trimester*; Diet controlled gestational diabetes mellitus (GDM) in third trimester; H/O delivery, currently ; Multigravida of advanced maternal age in third trimester; Depression complicating , antepartum; Obesity in , antepartum; Cramping affecting , antepartum Allergies Active Allergy Reactions Criticality Noted Date Comments Citalopram Hydrobromide Other (Please comment) 02/18/2009 Increases anxiety-celexa Cyclobenzaprine 04/26/2021 documented as of this encounter (statuses as of 09/17/2024) Medications 28-0.8 MG Oral Tablet Take by mouth. Active iSnapTouch Verio Flex System w/Device Kit Use to test blood sugars 4 times daily (fasting, 1 hour after breakfast, lunch, and dinner) 1 Kit 06/19/2024 Active iSnapTouch Verio In Vitro Strip (Glucose Blood) Use [...] as of this encounter (statuses as of 09/17/2024) Active Problems Problem Noted Date Diagnosed Date [...] 07/11/24: MFM ADAPT consult complete. Enrolled in [facility]. Instructions provided to report blood sugars each week for MFM review; Discussed importance of testing FBS and 1 hour after meals. Reviewed diet and exercise recommendations. 07/15/[id number]-claelyzq 2 fasting blood sugars and 3 post prandial breakfast; stable. Messaged to be consistent with testing four times daily and reporting. Will review again next week. 07/22/[id number]-QZA-nngbsln blood sugars overall stable (2 of 7 elevated fasting blood sugars). Reported only 5 post prandial numbers in the past week. Again messaged to be consistent with testing four times daily. Will schedule follow up ADAPT appointment next week if still with minimal post prandial reporting. 07/29/[id number]-QYS-edznpsp stable (< 50% fasting blood sugars elevated). Minimal post prandial values. Patient and [facility] messaged to schedule follow up ADAPT appointment. 08/05/24: Follow-up ADAPT visit complete; minimal reporting in [facility] RPM; no blood sugars to review today - patient to send message with updated log; continue diet controlled; recommend Nutrition visit 08/15/[id number]-WQE-fmq reporting. Sent message to patient and [facility] to schedule follow up ADAPT appointment. [...] and reviewed importance of more consistent testing/reporting 09/02/[id number]-UCE-enk reporting. Sent message via [email or web address] and [employer] asking her to report. Sent message to [facility] PARs to schedule follow up ADAPT appointment. 09/06/2024 Follow up ADAPT compete; not reporting in [facility] or checking blood sugars consistently; blood sugars reported today are stable. Ask to commit to check blood sugars 4 times daily (if not at least always a fasting and one meal) and entering them into the [facility]. 09/09/[id number]-AJI-nti reporting. Sent message via [email or web address] and [employer] asking her to report. 09/16/24: Pt not reporting BG readings. State she will being readings to her [facility] appoint on 09/19/24 Assessment & Plan (08/15/2024 11:12 AM EDT): [...] Recommend nutrition consult with RDN (Registered Dietitian Radio Interference Trouble Shooter). Lifestyle changes are also indicated including optimizing [...] patients who previously received 17P. Patient's primary MANAGER MANAGEMENT can coordinate therapy if desired. For patients [...] as of this encounter (statuses as of 09/17/2024) Resolved Problems Problem Noted Date Diagnosed Date Resolved Date with 24 completed weeks gestation 07/11/2024 09/09/2024 ADVANCE DIRECTIVE INFORMATION 04/09/2009 09/02/2024 Overview (04/09/2009): No, Advance Directive brochure offered , patient declined. Current with histo ry of pre-term labor 02/18/2009 06/28/2024 documented as of this encounter (statuses as of 09/17/2024) Immunizations Name Administration Dates Next Due TDAP, [...] money to get more. Never true 05/27/2024 [place] Depression Scale Answer Date Recorded [place] Depression Scale Total 3 09/09/2024 The thought [...] Sign Reading Time Taken Comments Blood Pressure 118/68 09/17/2024 11:47 AM EST Pulse - - Temperature - - Respiratory Rate - - Oxygen Saturation - - Inhaled Oxygen Concentration - - Weight 89.8 kg (198 lb) 09/17/2024 11:47 AM EST Height - - Body Mass Index 35.07 04/25/2024 8:49 AM EDT documented in this encounter Progress Notes * Charleen Su CRNP - 09/17/2024 11:48 AM EST 34w4d Here for acute visit. Period-like cramps and low back pain since last night. Cramping had been constant, now more intermittent. Seems slightly better now. Baby is moving. Feels she is well hydrated. No bleeding, leaking. Small leuks in urine dip, will send for culture. Cervix 2 cm, head high/ballottable. Has a growth u/s later this week. NST reactive with no ctx. Pt wishes to return to work, has a job where she can sit. Encouraged to push fluids, call office if cramping increases or with other signs of labor. Marine Equipment Preservation Inspector Documentation Provider requested custom leather products maker. Name of custom leather products maker: Tiarra ASSESSMENT assessment with Non-stress Test completed on 09/17/2024 at 34.4 weeks gestation for indication of cramping heart baseline: 140 bpm Variability: Moderate Decelerations: absent Accelerations: present Contractions: None NST start time: 1259 (time not changed to DST) NST stop time: 1323 NST strip reviewed, interpreted, and approved by OB provider, JIGAR Leo . NST strip stored in clinic storage file documented in this encounter Plan of Treatment Upcoming Encounters Date Type Department Care Team (Late st Contact Info) Description 09/19/2024 8:00 AM EST Imaging Maternal Medicine Imaging, [facility] [address] [place] [phone] 09/19/2024 8:00 AM EST Office Visit Principal Network Engineer Obstetrics Maternal Medicine, [facility] [address] [place] [address] Anna Jara, DO [address] [place] [address] 09/23/2024 8:30 AM EST Office Visit Gynecology/Obstetrics [facility] [address] [place] [address] Charleen Su CRNP [address] [place] [address] 10/01/2024 8:30 AM EST Office Visit Gynecology/Obstetrics [facility] [address] [place] [address] Charleen Su CRNP [address] [place] [address] 10/09/2024 9:00 AM EST Office Visit Gynecology/Obstetrics [facility] [address] [place] [address] Mary Weathers CRNP [address] [place] [address] [facility], Non Stress Tests [place] [address] 10/16/2024 9:00 AM EST Office Visit Gynecology/Obstetrics [place] [address] Mary Weathers CRNP [address] [place] [address] [facility] Non Stress Tests [place] [address] 10/17/2024 8:00 AM EST Imaging Maternal Medicine Imaging, [place] [phone] Pending Results Name Type Priority Associated Diagnoses Date /Time CULTURE, URINE, QUANTITATIVE Lab Routine Cramping affecting , antepartum 09/17/2024 11:56 AM EST Health Maintenance Due Date Last Done Comments [...] Not on filedocumented as of this encounter Procedures Procedure Name Priority Date/Time Associated Diagnosis Comments URINALYSIS OBSTETRICS, POINT OF CARE Routine 09/17/2024 11:49 AM EST Supervision of high risk in third trimester documented in this encounter Results * (ABNORMAL) URINALYSIS OBSTETRICS, POINT OF CARE (09/17/2024 11:49 AM EST) Color, Urine Yellow Light Yellow, Yellow 09/17/2024 12:09 PM EST [facility] [place] [facility]10 Clarity, Urine Clear Clear 09/17/2024 12:09 PM EST [facility] [place] 57[facility]10 Glucose, Urine Negative Negative mg/dL 09/17/2024 12:09 PM EST [facility] [place] 57-10 Bilirubin, Urine Negative Negative 09/17/2024 12:09 PM EST [facility] [place] 57[facility]10 Ketone, Urine Negative Negative mg/dL 09/17/2024 12:09 PM EST [facility] [place] 57[facility]10 Specific [place], Urine 1.020 1.003 - 1.030 09/17/2024 12:09 PM EST [facility] [place] 57[facility]10 Blood, Urine Negative Negative 09/17/2024 12:09 PM EST [facility] [place] 57[facility]10 pH, Urine 7.0 5.0, 5.5, 6.0, 6.5, 7.0, 7.5 units 09/17/2024 12:09 PM EST [facility] [place] 57[facility]10 Protein, Urine Negative Negative mg/dL 09/17/2024 12:09 PM EST [facility] [place] 57[facility]10 Urobilinogen, Urine 0.2 0.2, 1.0 mg/dL 09/17/2024 12:09 PM EST [facility] [place] 57[facility]10 Nitrite, Urine Negative Negative 09/17/2024 12:09 PM EST [facility] [place] 57[facility]10 Esterase, Urine Small(A) Negative 09/17/2024 12:09 PM EST [facility] [place] 57-10 Urine 09/17/2024 11:4 9 AM EST 09/17/2024 12:09 PM EST Charleen Gomez Backer JIGAR LAB POINT O F CARE TEST DOCKED DEVICE UNSOLICITED RESULTS Final Result [facility] [place] [facility] [place] [address] documented in this encounter Visit Diagnoses Diagnosis Obesity in [...] trimester 29 weeks gestation of state, incidental Supervision of [...] or the puerperium, antepartum condition or complication Cramping affecting , antepartum documented in this encounter Advance Directives * Full Code (Latest Code Status on File) Date Activated Date Inactivated Comments 02/18/2009 4:31 PM 02/26/2009 8:21 PM Care Teams Computer Tech Relationship Specialty Start Date End Date Sandra Vega DO [address] [place] [address], [place] [address] PCP - General Family Medicine 10/17/12 documented as of this encounter
--- OUTSIDE RECORDS SUMMARY | 2024-10-29 08:06 | External Medical Summary | Summary of Care ---
Author Name Unknown Organization [facility] Address [address] [place] [address] Phone [phone] Care Team Providers Care Kennel Technician Name Role Phone Sandra Vega Primary Care Provider Encounter Details Date Type Department Care Team (Late st Contact Info) Description 09/19/2024 8:00 AM EST Office Visit Band Singer Obstetrics Maternal Medicine, [address] [address] Anna Jara DO [address] [place] [address] Diet controlled gestational diabetes mellitus (GDM) in third trimester*; Obesity in , antepartum; Ultrasound for screening for growth restriction; 34 weeks gestation of Allergies Active Allergy Reactions Criticality Noted Date Comments Citalopram Hydrobromide Other (Please comment) 02/18/2009 Increases anxiety-celexa Cyclobenzaprine 04/26/2021 documented as of this encounter (statuses as of 09/20/2024) Medications 28-0.8 MG Oral Tablet Take by mouth. Active organgir.am Verio Flex System w/Device Kit Use to test blood sugars 4 times daily (fasting, 1 hour after breakfast, lunch, and dinner) 1 Kit 06/19/2024 Active Idea DeviceTouch Verio In Vitro Strip (Glucose Blood) Use to test blood sugars 4 times daily (fasting, 1 hour after breakfast, lunch, and dinner) 125 Strip 6 06/19/2024 Active Idea DeviceTouch Delica Lancets 30G Use to test blood [...] as of this encounter (statuses as of 09/20/2024) Active Problems Problem Noted Date Diagnosed Date [...] after meals. Reviewed diet and exercise recommendations. 07/15/[id number]-ALP-hyavvzpp 2 fasting blood sugars and 3 post prandial breakfast; stable. Messaged to be consistent with testing four times daily and reporting. Will review again next week. 07/22/[id number]-RRO-brozzmj blood sugars overall stable (2 of 7 elevated fasting blood sugars). Reported only 5 post prandial numbers in the past week. Again messaged to be consistent with testing four times daily. Will schedule follow up ADAPT appointment next week if still with minimal post prandial reporting. 07/29/[id number]-YGD-zxqfowv stable (< 50% fasting blood sugars elevated). Minimal post prandial values. Patient and [facility] messaged to schedule follow up ADAPT appointment. 08/05/24: Follow-up ADAPT visit complete; minimal reporting in [facility] RPM; no blood sugars to review today - patient to send message with updated log; continue diet controlled; recommend Nutrition visit 08/15/[id number]-JVU-nok reporting. Sent message to patient and [facility] to schedule follow up ADAPT [...] and reviewed importance of more consistent testing/reporting 09/02/20242493-KZE-aha reporting. Sent message via [employer] and [employer] asking her to report. Sent message to [facility] to schedule follow up ADAPT appointment. 09/06/2024 Follow up ADAPT compete; not reporting in [facility] or checking blood sugars consistently; blood sugars reported today are stable. Ask to commit to check blood sugars 4 times daily (if not at least always a fasting and one meal) and entering them into the [facility] [employer] [facility]. 09/09/[id number]-FZK-znv reporting. Sent message via [employer] and [employer] asking her to report. 09/16/24: Pt not reporting BG readings. State she will being readings to her [facility] appoint on 09/19/24 Assessment & Plan (09/19/2024 [...] Recommend nutrition consult with RDN (Registered Dietitian Baseball Glove Shaper). Lifestyle changes are also indicated including optimizing [...] patients who previously received 17P. Patient's primary TIME STUDY TECHNOLOGIST can coordinate therapy if desired. For patients [...] as of this encounter (statuses as of 09/20/2024) Resolved Problems Problem Noted Date Diagnosed Date Resolved Date with 24 completed weeks gestation 07/11/2024 09/09/2024 ADVANCE DIRECTIVE INFORMATION 04/09/2009 09/02/2024 Overview (04/09/2009): No, Advance Directive brochure offered , patient declined. Current with histo ry of pre-term labor 02/18/2009 06/28/2024 documented as of this encounter (statuses as of 09/20/2024) Immunizations Name Administration Dates Next Due TDAP, [...] money to get more. Never true 05/27/2024 [place] Depression Scale Answer Date Recorded [place] Depression Scale Total 3 09/09/2024 The thought [...] [facility] [address] [place] [address] Charleen Su CRNP [address] [place] [address] 10/01/2024 8:30 AM EST Office Visit Gynecology/Obstetrics [facility] [address] [place] [address] Charleen Su CRNP [address] [place] [address] 10/09/2024 9:00 AM EST Office Visit Gynecology/Obstetrics [facility] [address] [place] [address] Mary Weathers CRNP [address] [place] [address] [facility], Non Stress Tests [facility] [address] [place] [address] 10/16/2024 9:00 AM EST Office Visit Gynecology/Obstetrics [facility] [address] [place] [address] Mary Weathers CRNP [address] [place] [address] [facility], Non Stress Tests [facility] [address] [place] [address] 10/17/2024 8:00 AM EST Imaging Maternal Medicine [...] 4:31 PM 02/26/2009 8:21 PM Care Teams Kennel Technician Relationship Specialty Start Date End Date Sandra Vega DO 6 [facility] Francis [place] [address] [address] PCP - General Family Medicine 10/17/12 documented as of this encounter
--- OUTSIDE RECORDS SUMMARY | 2024-10-29 08:06 | External Medical Summary | Summary of Care ---
Author Name Unknown Organization [facility] Address [address] [place] [address] Phone [phone] Care Team Providers Care Dental Internship Name Role Phone Sandra Vega Primary Care Provider Reason for Visit * Reason Onset Date Comments Appointment 09/23/2024 Encounter Details Date Type Department Care Team (Late st Contact Info) Description 09/23/2024 Telephone Security Compliance Engineer Obstetrics Maternal Medicine, [place] [address] [place] [address] [place], Nurse Security Compliance Engineer [facility] [address] [place] [address] Appointment Allergies Active Allergy Reactions Criticality Noted Date Comments Citalopram Hydrobromide Other (Please comment) 02/18/2009 Increases anxiety-celexa Cyclobenzaprine 04/26/2021 documented as of this encounter (statuses as of 09/23/2024) Medications 28-0.8 MG Oral Tablet Take by mouth. Active WaveMAXio Flex System w/Device Kit Use to test blood sugars 4 times daily (fasting, 1 hour after breakfast, lunch, and dinner) 1 Kit 06/19/2024 Active NMB BankTouch Verio In Vitro Strip (Glucose Blood) Use to test blood sugars 4 times daily (fasting, 1 hour after breakfast, lunch, and dinner) 125 Strip 6 06/19/2024 Active NMB BankTouch Delica Lancets 30G Use to test blood [...] Tablet before bedtime. 60 Tablet 1 09/23/2024 Active documented as of this encounter [...] 07/11/24: MFM ADAPT consult complete. Enrolled in [facility]. Instructions provided to report blood sugars each week for MFM review; Discussed importance of testing FBS and 1 hour after meals. Reviewed diet and exercise recommendations. 07/15/[id number]-CVA-hrhvwkpm 2 fasting blood sugars and 3 post prandial breakfast; stable. Messaged to be consistent with testing four times daily and reporting. Will review again next week. 07/22/20245953-PHN-zqpdcki blood sugars overall stable (2 of 7 elevated fasting blood sugars). Reported only 5 post prandial numbers in the past week. Again messaged to be consistent with testing four times daily. Will schedule follow up ADAPT appointment next week if still with minimal post prandial reporting. 07/29/20249157-PUN-stxpukq stable (< 50% fasting blood sugars elevated). Minimal post prandial values. Patient and [facility] PAR[facility] messaged to schedule follow up ADAPT appointment. 08/05/24: Follow-up ADAPT visit complete; minimal reporting in CH RPM; no blood sugars to review today - patient to send message with updated log; continue diet controlled; recommend Nutrition visit 08/15/20247341-KYL-dxt reporting. Sent message to patient and [facility] PARs to schedule follow up ADAPT [...] and reviewed importance of more consistent testing/reporting 09/02/20249059-JNT-wgf reporting. Sent message via [employer] and [employer] asking her to report. Sent message to [facility] PARs to schedule follow up ADAPT appointment. 09/06/2024 Follow up ADAPT compete; not reporting in Current Toopher Bonita or checking blood sugars consistently; blood sugars reported today are stable. Ask to commit to check blood sugars 4 times daily (if not at least always a fasting and one meal) and entering them into the [employer] Bonita. 09/09/20241213-QZF-ceg reporting. Sent message via [employer] and [employer] asking her to report. 09/16/24: Pt not reporting BG readings. State she will being readings to her [facility] appoint on 09/19/24 09/20/24: Scanned blood sugars reviewed; stable; however, minimal values reported and unclear if fasting or postprandial values; will ask [facility] PARS to offer patient ADAPT visit Assessment [...] Recommend nutrition consult with RDN (Registered Dietitian Podiatric Assistant). Lifestyle changes are also indicated including optimizing [...] patients who previously received 17P. Patient's primary HUMAN SERVICE TECHNICIAN can coordinate therapy if desired. For patients [...] money to get more. Never true 05/27/2024 [place] Depression Scale Answer Date Recorded [place] Depression Scale Total 3 09/09/2024 The thought [...] No 05/27/2024 Does the household have a [facility] source of income? (Household - for ages [...] encounter Miscellaneous Notes * Telephone Encounter - Mirela Rea OSA - 09/23/2024 9:18 AM EST Spoke with Priyanka. Appointment scheduled. Patient aware of date, time and location of Maternal Medicine appointment. documented in this encounter Plan of Treatment Upcoming Encounters Date Type Department Care Team (Late st Contact Info) Description 10/01/2024 8:30 AM EST Office Visit Gynecology/Obstetrics [facility] [address] [facility] [place] [address] Charleen Su CRNP [address] [place] [address] 10/07/2024 8:10 AM EST Telemedicine Security Compliance Engineer Obstetric MFM [facility] [address] [place] [place] [address] Dee Holder CRNP [address] [place] [facility] [place] [address] 10/09/2024 9:00 AM EST Office Visit Gynecology/Obstetrics Parvez R[facility] [address] [place] [address] Mary Weathers CRNP [address] [place] [address] Jessica Ricks Stress Tests Yo [address] [place] [address] 10/16/2024 9:00 AM EST Office Visit Gynecology/Obstetrics Parvez Ricks [address] [place] [address] Mary Weathers CRNP [address] [place] [address] Jessica Ricks Stress Tests Yo [address] [place] [address] 10/17/2024 8:00 AM EST Imaging Maternal Medicine Imaging, Yo Ricks [address] [place] [phone] Health Maintenance Due Date Last Done Comments [...] 4:31 PM 02/26/2009 8:21 PM Care Teams Dental Internship Relationship Specialty Start Date End Date Sandra Vega DO [facility] [address], [place] [address] PCP - General Family Medicine 10/17/12 documented as of this encounter
--- OUTSIDE RECORDS SUMMARY | 2024-10-29 08:06 | External Medical Summary ---
Author Name Unknown Address Unknown Organization K01:[facility] [place] [facility] [address] [place] [address] Laboratory Report Ordering Provider Test Date Status JUAN FOSTER 10/01/2024 08:40:37 Final Observation Date Value Abnormality Reference (Units ) Status Streptococcus agalactiae DNA [Presence] in Specimen by DENG with probe detection 10/01/2024 08:40:37 Negative Negative Final No Group B Streptococcus det ected by culture-enhanced PCR (amplified probe). GBS GBSCT - [facility] 10/01/2024 08:40:37 0.0 Final GBS SPCCT - [facility] 10/01/2024 08:40:37 31.1 Final Performing Location [facility] [place] [address] [place] [address]
--- OUTSIDE RECORDS SUMMARY | 2024-10-29 08:06 | External Medical Summary | Summary of Care ---
Author Name Unknown Organization [facility] Address [address] [facility] [place] [address] Phone [phone] Care Team Providers Care Disassembler Name Role Phone Sandra Vega Primary Care Provider Reason for Visit * Reason Comments Return Visit Encounter Details Date Type Department Care Team (Late st Contact Info) Description 10/01/2024 8:30 AM EST Office Visit Gynecology/Obstetric s Parvez Ricks [address] [place] [address] BackerCharleen CRNP [address] [place] [address] Supervision of high risk in third trimester*; [...] MG Oral Tablet Take by mouth. Active Ideal ImplantToAgora Shopping Verio Flex System w/Device Kit Use to test blood sugars 4 times daily (fasting, 1 hour after breakfast, lunch, and dinner) 1 Kit 06/19/2024 Active Ideal ImplantTouch Verio In Vitro Strip (Glucose Blood) Use [...] 07/11/24: MFM ADAPT consult complete. Enrolled in [facility]. Instructions provided to report blood sugars each week for MFM review; Discussed importance of testing FBS and 1 hour after meals. Reviewed diet and exercise recommendations. 07/15/20249712-YHX-ccnigpnp 2 fasting blood sugars and 3 post prandial breakfast; stable. Messaged to be consistent with testing four times daily and reporting. Will review again next week. 07/22/20247260-MWM-nvlyyny blood sugars overall stable (2 of 7 elevated fasting blood sugars). Reported only 5 post prandial numbers in the past week. Again messaged to be consistent with testing four times daily. Will schedule follow up ADAPT appointment next week if still with minimal post prandial reporting. 07/29/20247137-SKE-xkoegbo stable (< 50% fasting blood sugars elevated). Minimal post prandial values. Patient and [facility] messaged to schedule follow up ADAPT appointment. 08/05/24: Follow-up ADAPT visit complete; minimal reporting in CH RPM; no blood sugars to review today - patient to send message with updated log; continue diet controlled; recommend Nutrition visit 08/15/20243426-SUO-hrl reporting. Sent message to patient and [facility] to schedule follow up ADAPT appointment. [...] and reviewed importance of more consistent testing/reporting 09/02/20240460-LOE-pbz reporting. Sent message via [employer] and [employer] asking her to report. Sent message to [facility] to schedule follow up ADAPT appointment. 09/06/2024 Follow up ADAPT compete; not reporting in Current Health Bonita or checking blood sugars consistently; blood sugars reported today are stable. Ask to commit to check blood sugars 4 times daily (if not at least always a fasting and one meal) and entering them into the [employer] Bonita. 09/09/20246391-KOB-ach reporting. Sent message via [employer] and [employer] asking her to report. 09/16/24: Pt not reporting BG readings. State she will being readings to her [facility] appoint on 09/19/24 09/20/24: Scanned blood sugars reviewed; stable; however, minimal values reported and unclear if fasting or postprandial values; will ask [facility] PARS to offer patient ADAPT visit 09/23/20243822-MHH-rts reporting in Current Health. Has follow up [...] Recommend nutrition consult with RDN (Registered Dietitian Glue Plant Operator). Lifestyle changes are also indicated including optimizing [...] patients who previously received 17P. Patient's primary RECEP can coordinate therapy if desired. For patients [...] money to get more. Never true 05/27/2024 [place] Depression Scale Answer Date Recorded [place] Depression Scale Total 3 09/09/2024 The thought [...] is 10/17. Start NSTs with next visit. Iv Therapy Nurse Documentation Provider requested wiping cloth cutter. Name of wiping cloth cutter: JIGAR Pierce documented in this encounter Plan of Treatment Upcoming Encounters Date Type Department Care Team (Late st Contact Info) Description 10/07/2024 8:10 AM EST Telemedicine Keno Terminal Operator Obstetric MFM [facility] [address] [place] [facility] [place] [phone] Dee Holder CRNP [address] [place] [address] 10/09/2024 9:00 AM EST Office Visit Gynecology/Obstetrics Parvez Ricks [address] [place] [address] Mary Weathers CRNP [address] [place] [address] [place], Non Stress Tests Yo [address] [place] [address] 10/16/2024 9:00 AM EST Office Visit Gynecology/Obstetrics Parvez Ricks [address] [place] [address] Mary Weathers CRNP [address] [place] [address] R[place], Non Stress Tests Yo [address] [place] [address] 10/17/2024 8:00 AM EST Imaging Maternal Medicine Imaging, Yo Ricks [address] [place] [phone] Pending Results Name Type Priority Associated Diagnoses [...] 4:31 PM 02/26/2009 8:21 PM Care Teams Disassembler Relationship Specialty Start Date End Date Sandra Vega DO [address] [place] [address] PCP - General Family Medicine 10/17/12 documented as of this encounter
--- OUTSIDE RECORDS SUMMARY | 2024-10-29 08:07 | External Medical Summary ---
Author Name Unknown Address Unknown Organization K01:[facility] [place] - [address] [place] [id number] Laboratory Report Ordering Provider Test Date Status JUAN FOSTER 09/17/2024 11:56:24 Final Observation Date Value Abnormality Reference (Units) Status Bacteria identified in Specimen by Culture 09/17/2024 11:56:24 No significant growth Final Test: Culture, Urine, Quanti tative
Specimen Source: Urine, Clean Catch
Specimen Type: Urine
Specimen Date: 09/17/2024 1156
Result Date: 09/18/2024 1129
Result Status: Final result
Resulting Lab: [facility]
[address]
[place] [address]

CULTURE

No significant growth

null Performing Location [facility] - [address] [facility] [address]
--- OUTSIDE RECORDS SUMMARY | 2024-10-29 08:07 | External Medical Summary | Summary of Care ---
Author Name Unknown Organization [facility] Address [address] [place] [address] Phone [phone] Care Team Providers Care Stars Analytical Lead Name Role Phone Sandra Vega Primary Care Provider Reason for Visit * Reason Onset Date Comments Self-Blood Glucose Monitoring 09/16/2024 Encounter Details Date Type Department Care Team ([facility] Contact Info) Description 09/16/2024 Telephone Life Skills Educator Obstetrics Maternal Medicine [facility], Paul Martinez [address] [facility] [place] [phone] [place], Nurse Life Skills Educator [facility] [address] [address] Self-Blood Glucose Monitoring (/) Allergies Active Allergy Reactions Criticality Noted Date Comments Citalopram Hydrobromide Other (Please comment) 02/18/2009 Increases anxiety-celexa Cyclobenzaprine 04/26/2021 documented as of this encounter (statuses as of 09/16/2024) Medications 28-0.8 MG Oral Tablet Take by mouth. Active TethisToReadyDock Verio Flex System w/Device Kit Use to test blood sugars 4 times daily (fasting, 1 hour after breakfast, lunch, and dinner) 1 Kit 06/19/2024 Active TethisTouch Verio In Vitro Strip (Glucose Blood) Use to test blood sugars 4 times daily (fasting, 1 hour after breakfast, lunch, and dinner) 125 Strip 6 06/19/2024 Active TethisTouch Delica Lancets 30G Use to test blood [...] as of this encounter (statuses as of 09/16/2024) Active Problems Problem Noted Date Diagnosed Date [...] attend. GDM (gestational diabetes mellitus) 06/24/2024 Overview (09/09/2024): Diagnosed at 21 weeks Nutrition consult declined [...] after meals. Reviewed diet and exercise recommendations. 07/15/20249890-PZR-ivehgcny 2 fasting blood sugars and 3 post prandial breakfast; stable. Messaged to be consistent with testing four times daily and reporting. Will review again next week. 07/22/20244336-LQX-kuoifho blood sugars overall stable (2 of 7 elevated fasting blood sugars). Reported only 5 post prandial numbers in the past week. Again messaged to be consistent with testing four times daily. Will schedule follow up ADAPT appointment next week if still with minimal post prandial reporting. 07/29/20246973-TTI-hlmlozu stable (< 50% fasting blood sugars elevated). Minimal post prandial values. Patient and [facility] messaged to schedule follow up ADAPT appointment. 08/05/24: Follow-up ADAPT visit complete; minimal reporting in RPM; no blood sugars to review today - patient to send message with updated log; continue diet controlled; recommend Nutrition visit 08/15/20246890-CKM-alf reporting. Sent message to patient and [facility] to schedule follow [...] and reviewed importance of more consistent testing/reporting 09/02/20248634-WWJ-iau reporting. Sent message via [employer] and [employer] asking her to report. Sent message to [facility] to schedule follow up ADAPT appointment. 09/06/2024 Follow up ADAPT compete; not reporting in Current Health Bonita or checking blood sugars consistently; blood sugars reported today are stable. Ask to commit to check blood sugars 4 times daily (if not at least always a fasting and one meal) and entering them into the Current jiffstore Bonita. 09/09/20247986-EUY-aow reporting. Sent message via [employer] and [employer] asking her to report. Assessment & Plan (08/15/2024 11:12 AM EDT): [...] Recommend nutrition consult with RDN (Registered Dietitian Trauma Program Manager). Lifestyle changes are also indicated including [...] patients who previously received 17P. Patient's primary FINANCIAL SERVICES COUNSELOR can coordinate therapy if desired. For patients [...] as of this encounter (statuses as of 09/16/2024) Resolved Problems Problem Noted Date Diagnosed Date Resolved Date with 24 completed weeks gestation 07/11/2024 09/09/2024 ADVANCE DIRECTIVE INFORMATION 04/09/2009 09/02/2024 Overview (04/09/2009): No, Advance Directive brochure offered , patient declined. Current with histo ry of pre-term labor 02/18/2009 06/28/2024 documented as of this encounter (statuses as of 09/16/2024) Immunizations Name Administration Dates Next Due TDAP, [...] money to get more. Never true 05/27/2024 [place] Depression Scale Answer Date Recorded [place] Depression Scale Total 3 09/09/2024 The thought [...] encounter Miscellaneous Notes * Telephone Encounter - Jimi Mcneill, RN - 09/16/2024 12:53 PM EST Patient has not been reporting blood sugars in the Current Health bonita. Called patient to update numbers. She states she does not have her log or meter with her at this time but that she will bring them to her maternal medicine ultrasound appointment with Dr Jara on 09/19/2024 to review with staff. documented in this encounter Plan of Treatment Upcoming Encounters Date Type Department Care Team (Late st Contact Info) Description 09/19/2024 8:00 AM EST Imaging Maternal Medicine Imaging, Yobonnie Ricks [address] [place] [phone] 09/19/2024 8:00 AM EST Office Visit Life Skills Educator Obstetrics Maternal Medicine, Yo Ricks [address] [place] [address] Anna Jara, DO [address] [facility] [address] 09/23/2024 8:30 AM EST Office Visit Gynecology/Obstetrics [facility] [address] [place] [address] Backer, JIGAR Barba [address] [place] [address] 10/01/2024 8:30 AM EST Office Visit Gynecology/Obstetrics [facility] [address] [place] [address] Charleen Su CRNP [address] [place] [address] 10/09/2024 9:00 AM EST Office Visit Gynecology/Obstetrics [facility] [address] [place] [address] Mary Weathers CRNP [address] [place] [address] Ricks, Non Stress Tests [facility] [address] [place] [address] 10/16/2024 9:00 AM EST Office Visit Gynecology/Obstetrics [facility] [address] [place] [address] Mary Weathers CRNP [address] [place] [address] Ricks Non Stress Tests [facility] [address] [place] [address] 10/17/2024 8:00 AM EST Imaging [facility] [address] [place] [phone] Health Maintenance Due Date Last Done Comments [...] 4:31 PM 02/26/2009 8:21 PM Care Teams Stars Analytical Lead Relationship Specialty Start Date End Date Sandra Vega DO [address] [facility] [address] [place] [address] [place] [address], [place] [address] PCP - General Family Medicine 10/17/12 documented as of this encounter
--- OUTSIDE RECORDS SUMMARY | 2024-10-29 08:07 | External Medical Summary | Summary of Care ---
Author Name Unknown Organization [facility] Address [address] [facility] [place] [address] Phone [phone] Care Team Providers Care Appointment Manager Name Role Phone Sandra Vega Primary Care Provider Reason for Visit * Reason Comments Return Visit Encounter Details Date Type Department Care Team (Late st Contact Info) Description 08/28/2024 8:15 AM EDT Office Visit Gynecology/Obstetric s [facility] [address] [place] [address] Mary Weathers CRNP [address] [place] [address] Diet controlled gestational diabetes mellitus (GDM) in third trimester*; Multigravida of advanced maternal age in third trimester; H/O delivery, currently ; Depression complicating , antepartum; Supervision of high risk in second trimester; Obesity in , antepartum Allergies Active Allergy Reactions Criticality Noted Date Comments Citalopram Hydrobromide Other (Please comment) 02/18/2009 Increases anxiety-celexa Cyclobenzaprine 04/26/2021 documented as of this encounter (statuses as of 08/28/2024) Medications Medication Sig Dispensed Refills Start Date End Date Status 28-0.8 MG Oral Tablet Take by mouth. Active Onfan Verio Flex System w/Device Kit Use to test blood sugars 4 times daily (fasting, 1 hour after breakfast, lunch, and dinner) 1 Kit 06/19/2024 Active D1GTouch Verio In Vitro Strip (Glucose Blood) Use [...] noon and 1 Tablet before bedtime. Active documented as of this encounter (statuses as of 08/28/2024) Active Problems Problem Noted Date Diagnosed Date with 24 completed weeks gestation 06/30 Supervision of high risk in [facility] 06/28/2024 Obesity in , antepartum 06/28/2024 Overview: Pre gravid BMI: 35.0 Class 2 Last Assessment & Plan: CONSIDERATIONS: Discussed obstetrical risks associated with class [...] recommend weekly surveillance starting at 37 weeks. GDM (gestational diabetes mellitus) 06/24/2024 Overview: Diagnosed at 21 weeks Nutrition consult declined by patient Recommend checking A1C (ordered) 1 hour GTT: 159 3 hour GTT: 103 / 182 / 152 / 117 She reports her home blood glucose as following: DATE Fasting 1 hr after Breakfast 1 hr after Lunch 1 hr after Dinner 07/05/24 1100: 96 07/06/24 1030: 90 07/07/24 0830: 80 1015: 84 07/08/24 0730: 84 1245: 77 07/09/24 0900: 87 1411: 124 07/10/24 1041: 103 07/11/24 0912: 116 1530: 109 Patient states that she and her family [...] after meals. Reviewed diet and exercise recommendations. 07/15/[id number] 2 fasting blood sugars and 3 post prandial breakfast; stable. Messaged to be consistent with testing four times daily and reporting. Will review again next week. 07/22/[id number]-AQH-upcenjl blood sugars overall stable (2 of 7 elevated fasting blood sugars). Reported only 5 post prandial numbers in the past week. Again messaged to be consistent with testing four times daily. Will schedule follow up ADAPT appointment next week if still with minimal post prandial reporting. 07/29/[id number]-gujqfqq stable (< 50% fasting blood sugars elevated). Minimal post prandial values. Patient and [facility] PARs messaged to schedule follow up ADAPT appointment. 08/05/24: Follow-up ADAPT visit complete; minimal reporting in [facility]; no blood sugars to review today - patient to send message with updated log; continue diet controlled; recommend Nutrition visit 08/15/[id number]-mpl reporting. Sent message to patient and [facility] PARs to schedule follow up ADAPT appointment. [...] and reviewed importance of more consistent testing/reporting Last Assessment & Plan: Not reporting sugars. Appt made for 08/19. H/O delivery, currently 024 Overview: 2008: history of delivery at 29 weeks due to premature rupture of membranes (PPROM) and labor 2010: delivered at 39w --patient reports she started with labor around 25 weeks, was placed on Procardia until 35 weeks 07/08/2024: MFM anatomy ultrasound: cervical length = 35.9 mm Last Assessment & Plan: CONSIDERATIONS: Patient is at high risk to [...] patients who previously received 17P. Patient's primary RAMP SERVICE AGENT can coordinate therapy if desired. For patients with a history of delivery/prolonged PROM between 20-33w6d BUT HAS HAD SUBSEQUENT FULL-TERM DELIVERY, we recommend baseline transvaginal cervical length measurement with MFM at 19-20 weeks. AMA (advanced maternal age) multigravida 35+ Overview: Age 34 at delivery NIPT: declined Genetic counselor: declined Last Assessment & Plan: CONSIDERATIONS: We reviewed the most pertinent aspects [...] 19-20 weeks gestation. Depression complicating , antepartum Overview: Depression managed with Zoloft Reports a stable mood in . Denies any suicidal or homicidal ideation. Reports she has a good support system at home. Last Assessment & Plan: CONSIDERATIONS: Untreated maternal anxiety and/or depression may [...] health services as clinically indicated. Cholelithiasis 10/17/2012 ADVANCE DIRECTIVE INFORMATION 04/09/2009 Overview: No, Advance Directive brochure offered , patient declined. Estimated Date of Delivery Comme nts Yes 10/25/2024 Based on Ultraso und documented as of this encounter (statuses as of 08/28/2024) Resolved Problems Problem Noted Date Diagnosed Date Resolved Date Current with histo ry of pre-term labor 02/18/2009 06/28/2024 documented as of this encounter (statuses as of 08/28/2024) Immunizations Name Administration Dates Next Due TDAP, [...] money to get more. Never true 05/27/2024 Childcare Answer Date Recorded Do you feel [...] Assigned at Female 04/11/2024 8:57 PM EDT Gender Identity Female 04/11/2024 8:57 PM EDT Sexual Orientation Straight 04/11/2024 8: 57 PM EDT Job Start Date Occupation Industry Not on file Not on file Not on file documented as of this encounter Last Filed Vital Signs Vital Sign Reading Time Taken Comments Blood Pressure 116/72 08/28/2024 8:23 AM EDT Pulse - - Temperature - - Respiratory Rate - - Oxygen Saturation - - Inhaled Oxygen Concentration - - Weight 89.2 kg (196 lb 9.6 oz) 08/28/2024 8:23 A M EDT Height - - Body Mass Index 34.83 04/25/2024 8:49 AM EDT documented in this encounter Progress Notes * Mary Weathers CRNP - 08/28/2024 8:40 AM EDT 31w5d Still feeling dizzy/loopy. Now it is all day, every day. Had seen PCP office, thought it was anxiety and added Buspar to her Zoloft. This did not help at all, so she stopped it yesterday after takingfor nearly 2 weeks. Has another PCP appt after this visit today. Pt feels this is vertigo. No other concerns. Baby is active. No contractions, bleeding, LOF. Following with ADAPT, though struggling to remember to check blood sugars. JIGAR Lucas * Isela Landry CMA - 08/28/2024 8:23 AM EDT 31w5d Feeling of vertigo since mid June. Stopped taking Buspar, was not helping. Did see PCP, was told anxiety. documented in this encounter Plan of Treatment Upcoming Encounters Date Type Department Care Team (Late st Contact Info) Description 09/09/2024 8:30 AM EST Office Visit Gynecology/Obstetrics [place] [address] Charleen Su CRNP [address] [place] [address] 09/19/2024 8:00 AM EST [place] [phone] 09/23/2024 8:30 AM EST Office Visit Gynecology/Obstetrics [place] [address] Charleen Su CRNP [address] [place] [address] 10/01/2024 8:30 AM EST Office Visit Gynecology/Obstetrics [place] [address] [place] [address] Charleen Su CRNP [address] [place] [address] 10/07/2024 8:30 AM EST Office Visit Gynecology/Obstetrics [place] [address] [place] [address] Charleen Su CRNP [address] [place] [address] 10/15/2024 8:00 AM EST Office Visit Gynecology/Obstetrics [place] [address] [place] [address] Anthony Laguna MD [address] [place] [phone] 10/17/2024 8:00 AM EST Imaging Maternal Medicine Imaging, [facility] [address] [place] [phone] Health Maintenance Due Date Last Done Comments [...] as of this encounter Visit Diagnoses Diagnosis Diet controlled gestational diabetes mellitus (GDM) in third trimester- Primary Multigravida of advanced maternal age in third trimester H/O delivery, currently with history of pre-term labor Depression complicating , antepartum Mental disorders of mother, antepartum Supervision of high risk in second trimester Unspecified high-risk Obesity in , antepartum Obesity complicating , childbirth, or the puerperium, antepartum condition or complication documented in this encounter Advance Directives * Full Code (Latest Code Status on File) Date Activated Date Inactivated Comments 02/18/2009 4:31 PM 02/26/2009 8:21 PM Care Teams Appointment Manager Relationship Specialty Start Date End Date Sandra Vega DO [address] [place] [address] PCP - General Family Medicine 10/17/12 documented as of this encounter
--- OUTSIDE RECORDS SUMMARY | 2024-10-29 08:07 | External Medical Summary | Summary of Care ---
Author Name Unknown Organization [facility] Address [address] [place] [address] Phone [phone] Care Team Providers Care Patron Attendant Name Role Phone Sandra Vega Primary Care Provider Reason for Visit * Reason Comments Follow Up Gestational diabetes management Encounter Details Date Type Department Care Team ([facility] st Contact Info) Description 09/06/2024 8:00 AM EST Telemedicine Balance Wheel Screw Hole Tapper Obstetrics Maternal Medicine [facility], Paul Martinez [address] [facility] [place] [phone] Mark Odonnell CRNP [address] [address] Diet controlled gestational diabetes mellitus (GDM) in third trimester*; Supervision of high risk , antepartum, third trimester; 33 weeks gestation of Allergies Active Allergy Reactions Criticality Noted Date Comments Citalopram Hydrobromide Other (Please comment) 02/18/2009 Increases anxiety-celexa Cyclobenzaprine 04/26/2021 documented as of this encounter (statuses as of 09/06/2024) Medications 28-0.8 MG Oral Tablet Take by mouth. Active [facility] [employer] Verio Flex System w/Device Kit Use to test blood sugars 4 times daily (fasting, 1 hour after breakfast, lunch, and dinner) 1 Kit 06/19/2024 Active [facility] OncologyTouch Verio In Vitro Strip (Glucose Blood) Use to test blood sugars 4 times daily (fasting, 1 hour after breakfast, lunch, and dinner) 125 Strip 6 06/19/2024 Active [facility] OncologyTouch Delica Lancets 30G Use to test blood [...] as of this encounter (statuses as of 09/06/2024) Active Problems Problem Noted Date Diagnosed Date with 24 completed weeks gestation 06/30 [facility] 06/28/2024 Obesity in , antepartum 06/28/2024 Overview [...] attend. GDM (gestational diabetes mellitus) 06/24/2024 Overview (09/06/2024): Diagnosed at 21 weeks Nutrition consult declined [...] after meals. Reviewed diet and exercise recommendations. 07/15/[id number]-VAB-cfjqdgou 2 fasting blood sugars and 3 post prandial breakfast; stable. Messaged to be consistent with testing four times daily and reporting. Will review again next week. 07/22/[id number]-JYT-loiouvd blood sugars overall stable (2 of 7 elevated fasting blood sugars). Reported only 5 post prandial numbers in the past week. Again messaged to be consistent with testing four times daily. Will schedule follow up ADAPT appointment next week if still with minimal post prandial reporting. 07/29/[id number]-JKJ-bhdeysm stable (< 50% fasting blood sugars elevated). Minimal post prandial values. Patient and [facility] PARs messaged to schedule follow up ADAPT appointment. 08/05/24: Follow-up ADAPT visit complete; minimal reporting in [facility] R[facility]; no blood sugars to review today - patient to send message with updated log; continue diet controlled; recommend Nutrition visit 08/15/[id number]-KRM-vbr reporting. Sent message to patient and [facility] PARs to schedule follow up ADAPT appointment. [...] and reviewed importance of more consistent testing/reporting 09/02/[id number]-DLB-jhe reporting. Sent message via Sum[facility] and [facility] asking her to report. Sent message to [facility] PARs to schedule follow up ADAPT appointment. 09/06/2024 Follow up ADAPT compete; not reporting in [facility] or checking blood sugars consistently; blood sugars reported today are stable. Ask to commit to check blood sugars 4 times daily (if not at least always a fasting and one meal) and entering them into the [facility]. Assessment & Plan (08/15/2024 11:12 AM EDT): [...] Recommend nutrition consult with RDN (Registered Dietitian Oil Pipeline Operator). Lifestyle changes are also indicated including [...] patients who previously received 17P. Patient's primary IMAGING TECH can coordinate therapy if desired. For patients [...] as of this encounter (statuses as of 09/06/2024) Resolved Problems Problem Noted Date Diagnosed Date Resolved Date ADVANCE DIRECTIVE INFORMATION 04/09/2009 09/02/2024 Overview (04/09/2009): No, Advance Directive brochure offered , patient declined. Current with histo ry of pre-term labor 02/18/2009 06/28/2024 documented as of this encounter (statuses as of 09/06/2024) Immunizations Name Administration Dates Next Due TDAP, [...] as of this encounter Progress Notes * Mark Odonnell CRNP - 09/06/2024 8:08 AM EST MATERNAL MEDICINE VISIT Patient location: HOME. I was in a hospital or clinic location. After connecting through televideo,patient was verified with two unique identifiers. Patient (or authorized legal sales representative health insurance) was then informed that this was a Telemedicine visit and being conducted confidentially over secure lines. Methods to assure confidentiality were taken. Patient acknowledged consent and understanding of pr ivacy and security of the Telemedicine visit. The patient agreed to participate. Priyanka Hooks is a 34 year old year old with intrauterine at 33w0d who presents to [facility] for management of diabetes in . CC/HPI: Here for f/u visit. Current issues include: not reporting in [facility] or checking blood sugars consistently Current management: diet controlled Diet: gestational diabetes diet Exercise: walking Hypoglycemia episodes:N/A Recent growth scan: [facility] US: 08/15/24 at 29w6d ROSA: 13 cm EFW: 1451 g (34 % Hadlock) Glucose review: She reports her home blood glucose as following: DATE Fasting 1 hr after Breakfast 1 hr after Lunch 1 hr after Dinner 08/31/24 92 x x x 09/01/24 x x x x 09/02/24 x x x 82 09/03/24 x x x x 09/04/24 x x x x 09/05/24 87 x x 89 09/06/24 90 x x x REVIEW OF SYSTEMS: headaches: no nausea/vomiting: denies reports movement: yes abdominal pain/tenderness/cramping/contractions: no vaginal bleeding: no vaginal leaking of fluid: no all other systems negative PHYSICAL EXAM: LMP (LMP Unknown) Constitutional: pleasant, well-developed, well nourished General: pleasant, alert and oriented Neuro: mood and affect normal, alert and oriented, no acute distress DISCUSSION: -We discussed continuing to test blood sugars 4 times a day (fasting, one hour after breakfast, lunch, and dinner). Ask to commit to check blood sugars 4 times daily (if not at least always a fastingand one meal) and entering them into the [facility] -Briefly reviewed GDM diet recommendations including, avoiding processed suagars, sweetened drinks,white flour. Advised compliance with Oil Pipeline Operator consult. -We discussed eating a snack to help with sugar control in the fasting timeframe. -Encouraged 20-30 minutes a day of exercise (walking, light upper body strength training, yoga, stationary cycling, or swimming) -We discussed the goal of euglycemia in order to create a stable environment for the fetus. She is aware that with diabetes are at increased risk for multiple complications to both mother and fetus -I encouraged the patient to reach out to [facility] in the event that she has any questions regarding diabetes management. RECOMMENDATIONS: Management: continue diet controlled Scheduled on 09/19/[address] Jara for growth scan Follow up for glucose management in 1 week via [facility] Thank you for allowing us to participate in the care of this patient. Please call with any questions. JIGAR Nelson 09/06/2024 8:29 AM documented in this encounter Plan of Treatment Upcoming Encounters Date Type Department Care Team (Late st Contact Info) Description 09/09/2024 8:30 AM EST Office Visit Gynecology/Obstetrics [place] [address] Charleen Su CRNP [address] [place] [address] 09/19/2024 8:00 AM EST Imaging Maternal Medicine Imaging, [place] [phone] 09/23/2024 8:30 AM EST Office Visit Gynecology/Obstetrics [place] [address] Charleen Su CRNP [address] [place] [address] 10/01/2024 8:30 AM EST Office Visit Gynecology/Obstetrics [facility] [address] [place] [address] Charleen Su CRNP [address] [place] [address] 10/07/2024 8:30 AM EST Office Visit Gynecology/Obstetrics [facility] [address] [place] [address] Charleen Su CRNP [address] [place] [address] 10/15/2024 8:00 AM EST Office Visit Gynecology/Obstetrics [facility] [address] [place] [address] Anthony Laguna MD [address] [place] [phone] 10/17/2024 8:00 AM EST Imaging Maternal Medicine Imaging, [facility] [address] [place] [phone] Health Maintenance Due Date Last Done Comments [...] diabetes mellitus (GDM) in third trimester- Primary Supervision of high risk , antepartum, third trimester 33 weeks gestation of state, incidental documented in this encounter Advance Directives * Full Code (Latest Code Status on File) Date Activated Date Inactivated Comments 02/18/2009 4:31 PM 02/26/2009 8:21 PM Care Teams Patron Attendant Relationship Specialty Start Date End Date Sandra Vega DO [address] [facility] [address], [place] [address] PCP - General Family Medicine 10/17/12 documented as of this encounter
--- OUTSIDE RECORDS SUMMARY | 2024-10-29 08:07 | External Medical Summary | Summary of Care ---
Author Name Unknown Organization [facility] Address [address] [place] [address] Phone [phone] Care Team Providers Care Brand Recorder Name Role Phone Sandra Vega Primary Care Provider Reason for Visit * Reason Comments Follow Up Gestational diabetes Encounter Details Date Type Department Care Team ([facility] Contact Info) Description 08/26/2024 7:30 AM EDT Telemedicine Clinical Trial Assistant Obstetric MFM [facility] [address] [place] [id number] Dee Holder CRNP [address] [place] [address] Supervision of high risk in third trimester*; 31 weeks gestation of ; Diet controlled gestational diabetes mellitus (GDM) in third trimester Allergies Active Allergy Reactions Criticality Noted Date Comments Citalopram Hydrobromide Other (Please comment) 02/18/2009 Increases anxiety-celexa Cyclobenzaprine 04/26/2021 documented as of this encounter (statuses as of 08/26/2024) Medications Medication Sig Dispensed Refills Start Date End Date Status 28-0.8 MG Oral Tablet Take by mouth. Active motify Flex System w/Device Kit Use to test blood sugars 4 times daily (fasting, 1 hour after breakfast, lunch, and dinner) 1 Kit 06/19/2024 Active Quantum Healthio In Vitro Strip (Glucose Blood) Use to test blood sugars 4 times daily (fasting, 1 hour after breakfast, lunch, and dinner) 125 Strip 6 06/19/2024 Active Absolicon Solar ConcentratorToMetrixLab Delica Lancets 30G Use to test blood [...] as of this encounter (statuses as of 08/26/2024) Active Problems Problem Noted Date Diagnosed Date with 24 completed weeks gestation 06/30 Supervision of high risk in [employer] 06/28/2024 Obesity in , antepartum 06/28/2024 Overview: [...] after meals. Reviewed diet and exercise recommendations. 07/15/20244354-KAK-btaueroi 2 fasting blood sugars and 3 post prandial breakfast; stable. Messaged to be consistent with testing four times daily and reporting. Will review again next week. 07/22/[id number]-THD-cucpcsu blood sugars overall stable (2 of 7 elevated fasting blood sugars). Reported only 5 post prandial numbers in the past week. Again messaged to be consistent with testing four times daily. Will schedule follow up ADAPT appointment next week if still with minimal post prandial reporting. 07/29/[id number]-QJQ-nefoeui stable (< 50% fasting blood sugars elevated). Minimal post prandial values. Patient and C PARs messaged to schedule follow up ADAPT appointment. 08/05/24: Follow-up ADAPT visit complete; minimal reporting in [facility] RPM; no blood sugars to review today - patient to send message with updated log; continue diet controlled; recommend Nutrition visit 08/15/20243228-HPL-vwq reporting. Sent message to patient and [facility] [...] for 08/19. H/O delivery, currently 024 Overview: 2009: history of delivery at 29 weeks [...] patients who previously received 17P. Patient's primary CARBONATING STONE CLEANER can coordinate therapy if desired. For patients [...] as of this encounter (statuses as of 08/26/2024) Resolved Problems Problem Noted Date Diagnosed Date Resolved Date Current with histo ry of pre-term labor 02/18/2009 06/28/2024 documented as of this encounter (statuses as of 08/26/2024) Immunizations Name Administration Dates Next Due TDAP, [...] No 05/27/2024 Does the household have a unm hospitallar source of income? (Household - for ages [...] on file documented as of this encounter Progress Notes * Dee Holder CRNP - 08/26/2024 7:38 AM EDT MATERNAL MEDICINE VISIT Patient location: HOME. I was not in a hospital or clinic location. After connecting through televideo, patient was verified with two unique identifiers. Patient (or authorized legal employee relations representative) was then informed that this was a Telemedicine visit and being conducted confidentially over secure lines. Methods to assure confidentiality were taken. Patient acknowledged consent and understanding of privacy and security of the Telemedicine visit. The patient agreed to participate. Priyanka Hooks is a 34 year old year old with intrauterine at 31w3d who presents to [facility] for management of diabetes in . CC/HPI: Here for f/u visit. Current issues include: inconsistent testing and minimal reporting d/t anxiety - reports she has seen her PCP for anxiety this past week Current management: diet controlled Diet: gestational diabetes diet Exercise: walking No upcoming visits with Nutrition scheduled. Recent growth scan: [facility] US: 08/15/2024 at 29w6d ROSA: 13 cm EFW: 1451g (34% Hadlock) Glucose review: She reports her home blood glucose as following: DATE Fasting 1 hr after Breakfast 1 hr after Lunch 1 hr after Dinner 08/21/24 x x 130 x 08/22/24 x x 92 x 08/23/24 x x x x 08/24/24 x x x x 08/25/24 x 114 x x 08/26/24 x x x x Hypoglycemia episodes:N/A REVIEW OF SYSTEMS: headaches: no nausea/vomiting: denies reports movement: yes abdominal pain/tenderness/cramping/contractions: no vaginal bleeding: no vaginal leaking of fluid: no all other systems negative PHYSICAL EXAM: LMP (LMP Unknown) Constitutional: well-developed, well nourished General: pleasant, alert and oriented Neuro: mood and affect normal, alert and oriented, no acute distress DISCUSSION: -We discussed the importance of testing and reporting blood sugars 4 times a day (fasting, one hourafter breakfast, lunch, and dinner). Discussed it is hard to get a true picture of blood sugar control with numerous missed readings. She expressed understanding of same. -Briefly reviewed GDM diet recommendations. Encourage compliance with Bow Stapler. -Recommend eating a bedtime snack and fasting 8-10 hours overnight to help with sugar control in the [...] management. RECOMMENDATIONS: Management: continue diet controlled with consistent testing/reporting Scheduled on 09/19/2024 with M for growth scan. Follow up for glucose management in 1 week via [facility]. Patient deferred scheduling a follow up ADAPT (Advanced Diabetes And Team) visit at this time. Thank you for allowing us to participate in the care of this patient. Please call with any questions. JIGAR Serrano 08/26/2024 8:21 AM documented in this encounter Plan of Treatment Upcoming Encounters Date Type Department Care Team (Late st Contact Info) Description 08/28/2024 8:15 AM EDT Office Visit Gynecology/Obstetrics [facility]icks Bianca [place] [id number] Mary Weathers CRNP [address] [place] [address] 09/09/2024 8:30 AM EST Office Visit Gynecology/Obstetrics [facility] Bianca [place] [address] Charleen Su CRNP [address] [place] [address] 09/19/2024 8:00 AM EST Imaging Maternal Medicine Imaging, Yo Ricks Bianca Kiley [place] [phone] 09/23/2024 8:30 AM EST Office Visit Gynecology/Obstetrics Carusofawn Montess [address] [place] [address] Charleen Su CRNP [address] [place] [address] 09/30/2024 8:30 AM EST Office Visit Gynecology/Obstetrics [facility]ady[facility] Rambo [place] [address] Charleen Su CRNP [address] [place] [address] 10/07/2024 8:30 AM EST Office Visit Gynecology/Obstetrics [facility] [address] [place] [address] Charleen Su CRNP [address] [place] [address] 10/15/2024 8:00 AM EST Office Visit Gynecology/Obstetrics [facility] [address] [place] [address] Anthony Laguna MD [address] [place] [phone] 10/17/2024 8:00 AM EST Imaging Maternal Medicine Imaging, [facility] [address] [place] [phone] Health Maintenance Due Date Last Done Comments [...] as of this encounter Visit Diagnoses Diagnosis Supervision of high risk in third trimester- Primary Unspecified high-risk 31 weeks gestation of state, incidental Diet controlled gestational diabetes mellitus (GDM) in third trimester documented in this encounter Advance Directives * Full Code (Latest Code Status on File) Date Activated Date Inactivated Comments 02/18/2009 4:31 PM 02/26/2009 8:21 PM Care Teams Brand Recorder Relationship Specialty Start Date End Date Sandra Vega DO [address] Pip[address] Wilkinson [address] [place] [address], [place] [address] PCP - General Family Medicine 10/17/12 documented as of this encounter
--- OUTSIDE RECORDS SUMMARY | 2024-10-29 08:07 | External Medical Summary | Summary of Care ---
Author Name Unknown Organization [facility] Address [address] [place] [address] Phone [phone] Care Team Providers Care Lawn Caretaker Name Role Phone Sandra Vega Primary Care Provider Encounter Details Date Type Department Care Team (Late st Contact Info) Description 09/04/2024 Telephone Observer Helper Obstetrics Maternal Medicine, [place] [address] [place] [address] [place], Nurse Observer Helper [facility] [address] [place] [address] Allergies Active Allergy Reactions Criticality Noted Date Comments Citalopram Hydrobromide Other (Please comment) 02/18/2009 Increases anxiety-celexa Cyclobenzaprine 04/26/2021 documented as of this encounter (statuses as of 09/04/2024) Medications Medication Sig Dispensed Refills Start Date End Date Status 28-0.8 MG Oral Tablet Take by mouth. Active Amuso Verio Flex System w/Device Kit Use to test blood sugars 4 times daily (fasting, 1 hour after breakfast, lunch, and dinner) 1 Kit 06/19/2024 Active charity: wateruch Verio In Vitro Strip (Glucose Blood) Use to test blood sugars 4 times daily (fasting, 1 hour after breakfast, lunch, and dinner) 125 Strip 6 06/19/2024 Active Avalign Technologies HoldingsTouch Delica Lancets 30G Use to test blood [...] as of this encounter (statuses as of 09/04/2024) Active Problems Problem Noted Date Diagnosed Date with 24 completed weeks gestation 06/30 Supervision of high risk in [facility] 06/28/2024 Obesity in , antepartum 06/28/2024 Overview: [...] 07/11/24: MFM ADAPT consult complete. Enrolled in [facility]. Instructions provided to report blood sugars each week for MFM review; Discussed importance of testing FBS and 1 hour after meals. Reviewed diet and exercise recommendations. 07/15/[id number]-GZV-juwadzia 2 fasting blood sugars and 3 post prandial breakfast; stable. Messaged to be consistent with testing four times daily and reporting. Will review again next week. 07/22/20247107-IRR-acrwvlz blood sugars overall stable (2 of 7 elevated fasting blood sugars). Reported only 5 post prandial numbers in the past week. Again messaged to be consistent with testing four times daily. Will schedule follow up ADAPT appointment next week if still with minimal post prandial reporting. 07/29/[id number]-HMC-gtumycm stable (< 50% fasting blood sugars elevated). Minimal post prandial values. Patient and [place] PARs messaged to schedule follow up ADAPT appointment. 08/05/24: Follow-up ADAPT visit complete; minimal reporting in [facility] RPM; no blood sugars to review today - patient to send message with updated log; continue diet controlled; recommend Nutrition visit 08/15/20249931-UTX-ems reporting. Sent message to patient and [place] PARs to schedule follow up ADAPT appointment. [...] and reviewed importance of more consistent testing/reporting 09/02/20248737-XFZ-gyc reporting. Sent message via [facility] and [facility] asking her to report. Sent message to [place] PARs to schedule follow up ADAPT appointment. Last Assessment & Plan: Not reporting sugars. [...] patients who previously received 17P. Patient's primary SHOW HOST/HOSTESS can coordinate therapy if desired. For patients [...] as of this encounter (statuses as of 09/04/2024) Resolved Problems Problem Noted Date Diagnosed Date Resolved Date ADVANCE DIRECTIVE INFORMATION 04/09/2009 09/02/2024 Overview: No, Advance Directive brochure offered , patient declined. Current with histo ry of pre-term labor 02/18/2009 06/28/2024 documented as of this encounter (statuses as of 09/04/2024) Immunizations Name Administration Dates Next Due TDAP, [...] No 05/27/2024 [facility] the [facility]? (Household - for ages [...] on file documented as of this encounter Miscellaneous Notes * Telephone Encounter - Tammi Anguiano OSA - 09/04/2024 8:04 AM EST Spoke with Priyanka. Appointment scheduled. Patient aware of date, time and location of Maternal Medicine appointment. documented in this encounter Plan of Treatment Upcoming Encounters Date Type Department Care Team (Late st Contact Info) Description 09/06/2024 8:00 AM EST Telemedicine Observer Helper Obstetrics Maternal Medicine [facility], Paul Martinez [address] [place] [address] [place] [phone] Mark Odonnell CRNP [address] [address] 09/09/2024 8:30 AM EST Office Visit Gynecology/Obstetrics [facility] [address] [place] [address] BackCharleen fish CRNP [address] [place] [address] 09/19/2024 8:00 AM EST Imaging Maternal Medicine Imaging, Yo Ricks [address] [place] [address] 09/23/2024 8:30 AM EST Office Visit Gynecology/Obstetrics Mandies Ricks [address] [place] [address] BackCharleen fish CRNP [address] [place] [address] 10/01/2024 8:30 AM EST Office Visit Gynecology/Obstetrics Parvez Montess [address] [place] [address] BackCharleen fish CRNP [address] [place] [address] 10/07/2024 8:30 AM EST Office Visit Gynecology/Obstetrics [facility] [address] [place] [address] BackCharleen fish CRNP [address] [place] [address] 10/15/2024 8:00 AM EST Office Visit Gynecology/Obstetrics [facility] [address] [place] [address] Anthony Laguna MD [address] [place] [address] 10/17/2024 8:00 AM EST Imaging Maternal Medicine Imaging, Yo Ricks [address] [place] [phone] Health Maintenance Due Date Last Done Comments [...] 4:31 PM 02/26/2009 8:21 PM Care Teams Lawn Caretaker Relationship Specialty Start Date End Date Sandra Vega DO [address] [facility] [address] [address] PCP - General Family Medicine 10/17/12 documented as of this encounter
--- OUTSIDE RECORDS SUMMARY | 2024-10-29 08:07 | External Medical Summary | Summary of Care ---
Author Name Unknown Organization [facility] Address [address] [place] [address] Phone [phone] Care Team Providers Care Lockstitcher Name Role Phone Sandra Vega Primary Care Provider Reason for Visit * Reason Comments Follow Up Gestational diabetes Encounter Details Date Type Department Care Team ([facility] Contact Info) Description 08/19/2024 7:30 AM EDT Telemedicine Admitting Supervisor Obstetric MFM [facility] [address] [place] [phone] Dee Holder CRNP [address] [place] [address] Supervision of high risk in third trimester*; 30 weeks gestation of ; Diet controlled gestational diabetes mellitus (GDM) in third trimester Allergies Active Allergy Reactions Criticality Noted Date Comments Citalopram Hydrobromide Other (Please comment) 02/18/2009 Increases anxiety-celexa Cyclobenzaprine 04/26/2021 documented as of this encounter (statuses as of 08/19/2024) Medications Medication Sig Dispensed Refills Start Date End Date Status 28-0.8 MG Oral Tablet Take by mouth. Active UShealthrecord Flex System w/Device Kit Use to test blood sugars 4 times daily (fasting, 1 hour after breakfast, lunch, and dinner) 1 Kit 06/19/2024 Active OptionEaseio In Vitro Strip (Glucose Blood) Use to test blood sugars 4 times daily (fasting, 1 hour after breakfast, lunch, and dinner) 125 Strip 6 06/19/2024 Active Blue Lava GroupTouch Delica Lancets 30G Use to test blood [...] as of this encounter (statuses as of 08/19/2024) Active Problems Problem Noted Date Diagnosed Date with 24 completed weeks gestation 06/30 Supervision of high risk in [facility] 06/28/2024 Obesity in , antepartum 06/28/2024 [...] after meals. Reviewed diet and exercise recommendations. 07/15/20247477-YRT-kudgfwok 2 fasting blood sugars and 3 post prandial breakfast; stable. Messaged to be consistent with testing four times daily and reporting. Will review again next week. 07/22/[id number]-JPA-zboeicg blood sugars overall stable (2 of 7 elevated fasting blood sugars). Reported only 5 post prandial numbers in the past week. Again messaged to be consistent with testing four times daily. Will schedule follow up ADAPT appointment next week if still with minimal post prandial reporting. 07/29/20248721-EJI-psjimbn stable (< 50% fasting blood sugars elevated). Minimal post prandial values. Patient and C PARs messaged to schedule follow up ADAPT appointment. 08/05/24: Follow-up ADAPT visit complete; minimal reporting in [facility] RPM; no blood sugars to review today - patient to send message with updated log; continue diet controlled; recommend Nutrition visit 08/15/20242342-LET-ewu reporting. Sent message to patient and [facility] [...] F/U ADAPT visit scheduled 08/26/24 @ 7:30AM Last Assessment & Plan: Not reporting sugars. [...] patients who previously received 17P. Patient's primary PLUMBING MECHANIC can coordinate therapy if desired. For patients [...] as of this encounter (statuses as of 08/19/2024) Resolved Problems Problem Noted Date Diagnosed Date Resolved Date Current with histo ry of pre-term labor 02/18/2009 06/28/2024 documented as of this encounter (statuses as of 08/19/2024) Immunizations Name Administration Dates Next Due TDAP, [...] No 05/27/2024 Does the household have a [facility] source of income? (Household - for [...] Progress Notes * Dee Holder CRNP - 08/19/2024 7:46 AM EDT Images from the original note were not included. MATERNAL MEDICINE VISIT Patient location: HOME. I was in a hospital or clinic location. After connecting through televideo,patient was verified with two unique identifiers. Patient (or authorized legal call center representative) was then informed that this was a Telemedicine visit and being conducted confidentially over secure lines. Methods to assure confidentiality were taken. Patient acknowledged consent and understanding of pr ivacy and security of the Telemedicine visit. The patient agreed to participate. Priyanka Hooks is a 34 year old year old with intrauterine at 30w3d who presents to [facility] for management of diabetes in . CC/HPI: Here for f/u visit. Current issues include: inconsistent testing and reporting; she reports testing her blood sugars iscausing her anxiety (admits to following with her PCP for management of same); of those blood sugars reported this week, elevated fasting values Current management: diet controlled Diet: gestational diabetes diet Exercise: walking No upcoming visits with Nutrition scheduled. Recent growth scan: [facility] US: 08/15/2024 at 29w6d ROSA: 13 cm EFW: 1451g (34% Hadlock) Glucose review: She reports her home blood glucose as following: DATE Fasting 1 hr after Breakfast 1 hr after Lunch 1 hr after Dinner 08/12/24 x 99 x x 08/13/24 99 x 95 109 08/14/24 x x 88 x 08/15/24 106 - uncertain if FBS or after-B x x x 08/16/24 x x x x 08/17/24 x 132 x x 08/18/24 97 x x x 08/19/24 x x x x -Reports eating dinner ~730PM. Not having a bedtime snack. Checking FBS ~730AM. Hypoglycemia episodes:N/A REVIEW OF SYSTEMS: headaches: no nausea/vomiting: no reports movement: yes abdominal pain/tenderness/cramping/contractions: no vaginal [...] lunch, and dinner). -Briefly reviewed GDM diet recommendations. Recommend Counting carbohydrates - Breakfast: 45 grams carbohydrate, Snack: 15-20 grams carbohydrate, Lunch: 45 grams carbohydrate, Afternoon Snack: 15-20 grams carbohydrate, Dinner: 45 grams carbohydrate, bedtime snack 20-30 grams carbohydrate. Advised to have protein with every meal and snack, 70 grams total daily. Advised compliance with Nutritionistconsult; patient deferred scheduling at this time. -We discussed eating a bedtime snack and fasting 8-10 hours overnight to help with sugar control inthe fasting timeframe. Reviewed bedtime snack options. -Encouraged 20-30 minutes a day of exercise (walking, light upper body strength training, yoga, stationary cycling, or swimming). -We discussed the goal of euglycemia in order to create a stable environment for the fetus. She is aware that with diabetes are at increased risk for multiple complications to both mother and fetus. -Discussed elevated fasting values of those reported this week. Discussed medication options such as insulin and Metformin. Patient declined starting medication at this time. She desires to try lifestyle modifications instead. She was agreeable to follow-up visit, and request patient send in her blood sugars for this week by Monday for MFM review. She was aware if FBS elevations persist, medication would be recommended. She expressed understanding of same and was agreeable to plan as stated. -I encouraged the patient to reach out to MFM in the event that she has any questions regarding diabetes management. RECOMMENDATIONS: Management: continue diet controlled with lifestyle modifications Scheduled on 09/19/2024 with MFM for growth scan. Follow up for glucose management within 1 week via [facility]. Follow up is scheduled with JIGAR Espinoza on 08/26/2024 @ 7:30AM via telemedicine for ADAPT(Advanced Diabetes And Team). Thank you for allowing us to participate in the care of this patient. Please call with any questions. JIGAR Serrano 08/19/2024 8:25 AM documented in this encounter Plan of Treatment Upcoming Encounters Date Type Department Care Team (Late st Contact Info) Description 08/26/2024 7:30 AM EDT Telemedicine Admitting Supervisor Obstetric MFM W [facility] [address] [place] [phone] Dee Holder CRNP [address] [place] [address] 08/28/2024 8:15 AM EDT Office Visit Gynecology/Obstetrics [address] [place] [address] Mary Weathers CRNP [address] [place] [address] 09/09/2024 8:30 AM EST Office Visit Gynecology/Obstetrics [facility] [address] [place] [address] BackerCharleen CRNP [address] [place] [address] 09/19/2024 8:00 AM EST Imaging Maternal Medicine Imaging, [facility] [address] [place] [phone] 09/23/2024 8:30 AM EST Office Visit Gynecology/Obstetrics [facility] [address] [place] [address] Backer, JIGAR Barba [address] [place] [address] 09/30/2024 8:30 AM EST Office Visit Gynecology/Obstetrics [facility] [address] [place] [address] BackerCharleen CRNP [address] [place] [address] 10/07/2024 8:30 AM EST Office Visit Gynecology/Obstetrics [facility] [address] [place] [address] Backer, JIGAR Barba [address] [place] [address] 10/15/2024 8:00 AM EST Office Visit Gynecology/Obstetrics [facility] [address] [place] [address] Anthony Laguna MD [address] [place] [phone] 10/17/2024 8:00 AM EST Imaging Maternal Medicine Imaging, [facility] [address] [place] [phone] Health Maintenance Due Date Last Done [...] risk in third trimester- Primary Unspecified high-risk 30 weeks gestation of state, incidental Diet controlled gestational diabetes mellitus (GDM) in third trimester documented in this encounter Advance Directives * Full Code (Latest Code Status on File) Date Activated Date Inactivated Comments 02/18/2009 4:31 PM 02/26/2009 8:21 PM Care Teams Lockstitcher Relationship Specialty Start Date End Date Sandra Vega DO [address] [place] [address] Francis Wilkinson [address] [place] [address] PCP - General Family Medicine 10/17/12 documented as of this encounter
--- OUTSIDE RECORDS SUMMARY | 2024-10-29 08:07 | External Medical Summary ---
Author Name Unknown Address Unknown Organization K0G:[facility] [address] [place] [address] Laboratory Report Ordering Provider Test Date Status JUAN FOSTER 09/17/2024 11:49:00 Final Observation Date Value Abnormality Reference (Units ) Status Color of Urine by Auto 09/17/2024 11:49:00 Yellow Light Yellow, Yellow Final Clarity, Urine 09/17/2024 11:49:00 Clear Clear Final Glucose [Mass/volume] in Urine by Automated test strip 09/17/2024 11:49:00 Negative Negative (mg/dL) Final Bilirubin.total [Presence] in Urine by Automated test strip 09/17/2024 11:49:00 Negative Negative Final Ketones [Mass/volume] in Urine by Automated test strip 09/17/2024 11:49:00 Negative Negative (mg/dL) Final Specific gravity, Urine 09/17/2024 11:49:00 1.020 1.003-1.030 Final Hemoglobin [Presence] in Urine by Automated test strip 09/17/2024 11:49:00 Negative Negative Final pH, Urine 09/17/2024 11:49:00 7.0 5.0, 5.5, 6.0, 6.5, 7.0, 7.5 (units) Final Protein [Mass/volume] in Urine by Automated test strip 09/17/2024 11:49:00 Negative Negative (mg/dL) Final Urobilinogen, Urine 09/17/2024 11:49:00 0.2 0.2, 1.0 (mg/dL) Final Nitrite [Presence] in Urine by Automated test strip 09/17/2024 11:49:00 Negative Negative Final Leukocyte esterase [Presence] in Urine by Automated test strip 09/17/2024 11:49:00 Small Abnormal Negative Final Performing Location [facility] [address] [place] [address]
--- OUTSIDE RECORDS SUMMARY | 2024-10-29 08:07 | External Medical Summary | Summary of Care ---
Author Name Unknown Organization [facility] Address [address] [place] [address] Phone [phone] Care Team Providers Care Sales Professional Name Role Phone Sandra Vega Primary Care Provider Reason for Visit * Reason Comments Follow Up Gestational diabetes Encounter Details Date Type Department Care Team ([facility] Contact Info) Description 08/19/2024 7:30 AM EDT Telemedicine Marketing Project Lead Obstetric MFM [facility] [address] [place] [phone] Dee Holder CRNP [address] [place] [address] Supervision of high risk in third trimester*; [...] MG Oral Tablet Take by mouth. Active Xendo Flex System w/Device Kit Use to test blood sugars 4 times daily (fasting, 1 hour after breakfast, lunch, and dinner) 1 Kit 06/19/2024 Active Applied BioCodeio In Vitro Strip (Glucose Blood) Use to test blood sugars 4 times daily (fasting, 1 hour after breakfast, lunch, and dinner) 125 Strip 6 06/19/2024 Active dondeEsta™Touch Delica Lancets 30G Use to test blood [...] gestation 06/30 Supervision of high risk in [facility] 06/28/2024 Obesity in , antepartum 06/28/2024 [...] after meals. Reviewed diet and exercise recommendations. 07/15/20241400-QKK-hsujfkhg 2 fasting blood sugars and 3 post prandial breakfast; stable. Messaged to be consistent with testing four times daily and reporting. Will review again next week. 07/22/[id number]-GFI-nhstgly blood sugars overall stable (2 of 7 elevated fasting blood sugars). Reported only 5 post prandial numbers in the past week. Again messaged to be consistent with testing four times daily. Will schedule follow up ADAPT appointment next week if still with minimal post prandial reporting. 07/29/[id number]-WUV-lkixdfm stable (< 50% fasting blood sugars elevated). Minimal post prandial values. Patient and C PARs messaged to schedule follow up ADAPT appointment. 08/05/24: Follow-up ADAPT visit complete; minimal reporting in CH RPM; no blood sugars to review today - patient to send message with updated log; continue diet controlled; recommend Nutrition visit 08/15/20249461-ESS-atk reporting. Sent message to patient and [facility] [...] patients who previously received 17P. Patient's primary HELICOPTER CREW CHIEF can coordinate therapy if desired. For patients [...] No 05/27/2024 Does the household have a [facility] source of income? (Household - for [...] two unique identifiers. Patient (or authorized legal veterans employment representative) was then informed that this was a Telemedicine visit and being conducted confidentially over secure lines. Methods to assure confidentiality were taken. Patient acknowledged consent and understanding of pr ivacy and security of the Telemedicine visit. The patient agreed to participate. Priyanka Hooks is a 34 year old year old with intrauterine at 30w3d who presents to [facility] for management of diabetes in . CC/HPI: [...] scheduled. Recent growth scan: [facility] US: 08/15/2024 at 29w6d ROSA: 13 cm [...] for glucose management within 1 week via [employer] [facility]. Follow up is scheduled with [...] Info) Description 08/26/2024 7:30 AM EDT Telemedicine Marketing Project Lead Obstetric MFM W [facility] [address] [place] [phone] Dee Holder CRNP [address] [place] [address] 08/28/2024 8:15 AM EDT Office Visit Gynecology/Obstetrics [address] [place] [address] Mary Weathers CRNP [address] [place] [address] 09/09/2024 8:30 AM EST Office Visit Gynecology/Obstetrics [facility] [address] [place] [address] BackerCharleen CRNP [address] [place] [address] 09/19/2024 8:00 AM EST Imaging Maternal Medicine Imaging, [facility] [address] [place] [phone] 09/23/2024 8:30 AM EST Office Visit Gynecology/Obstetrics [facility] [address] [place] [address] Backer, JIGAR Barba [address] [place] [address] 09/30/2024 8:30 AM EST Office Visit Gynecology/Obstetrics [facility] [address] [place] [address] BackerCharleen CRNP [address] [place] [address] 10/07/2024 8:30 AM EST Office Visit Gynecology/Obstetrics [facility] [address] [place] [address] Backer, JIGAR Barba [address] [place] [address] 10/15/2024 8:00 AM EST Office Visit Gynecology/Obstetrics [facility] [address] [place] [address] Anthony Laguna MD [address] [place] [phone] 10/17/2024 8:00 AM EST Imaging Maternal Medicine Imaging, [facility] [address] [place] [phone] [...] 4:31 PM 02/26/2009 8:21 PM Care Teams Sales Professional Relationship Specialty Start Date End Date Sandra Vega DO [address] [place] [address] Francis Wilkinson [address] [place] [address] PCP - General Family Medicine 10/17/12 documented as of this encounter
--- OUTSIDE RECORDS SUMMARY | 2024-10-29 08:07 | External Medical Summary | Summary of Care ---
Author Name Unknown Organization [facility] Address [address] [place] [address] Phone [phone] Care Team Providers Care Cot Assembler Name Role Phone Sandra Vega Primary Care Provider Encounter Details Date Type Department Care Team (Late st Contact Info) Description 08/15/2024 8:45 AM EDT Office Visit Improvement Rn Obstetrics Maternal Medicine, [address] [place] [address] Anna Jara DO [address] [place] [address] Obesity in , antepartum*; Diet controlled gestational diabetes mellitus (GDM) in third trimester; Multigravida of advanced maternal age in third trimester; 29 weeks gestation of Allergies Active Allergy Reactions Criticality Noted Date Comments Citalopram Hydrobromide Other (Please comment) 02/18/2009 Increases anxiety-celexa Cyclobenzaprine 04/26/2021 documented as of this encounter (statuses as of 08/16/2024) Medications Medication Sig Dispensed Refills Start Date End Date Status 28-0.8 MG Oral Tablet Take by mouth. Active Frontenac Verio Flex System w/Device Kit Use to test blood sugars 4 times daily (fasting, 1 hour after breakfast, lunch, and dinner) 1 Kit 06/19/2024 Active Neuros MedicalTouch Verio In Vitro Strip (Glucose Blood) Use to test blood sugars 4 times daily (fasting, 1 hour after breakfast, lunch, and dinner) 125 Strip 6 06/19/2024 Active Neuros MedicalTouch Delica Lancets 30G Use to test blood sugars 4 times daily (fasting, 1 hour after breakfast, lunch, and dinner) 200 Each 6 06/19/2024 Active Sertraline HCl 25 MG Oral Tablet (Zoloft) Take 1 Tablet by mouth in the morning. 06/28/2024 Active documented as of this encounter (statuses as of 08/16/2024) Active Problems Problem Noted Date Diagnosed Date with 24 completed weeks gestation 06/30 Supervision of high risk in [facility] 06/28/2024 Obesity in , antepartum 06/28/2024 [...] after meals. Reviewed diet and exercise recommendations. 07/15/20245474-OAH-rpykdxim 2 fasting blood sugars and 3 post prandial breakfast; stable. Messaged to be consistent with testing four times daily and reporting. Will review again next week. 07/22/20246276-ZIX-loczaap blood sugars overall stable (2 of 7 elevated fasting blood sugars). Reported only 5 post prandial numbers in the past week. Again messaged to be consistent with testing four times daily. Will schedule follow up ADAPT appointment next week if still with minimal post prandial reporting. 07/29/[id number]-GEZ-lrbuufi stable (< 50% fasting blood sugars elevated). Minimal post prandial values. Patient and C PARs messaged to schedule follow up ADAPT appointment. 08/05/24: Follow-up ADAPT visit complete; minimal reporting in RPM; no blood sugars to review today - patient to send message with updated log; continue diet controlled; recommend Nutrition visit 08/15/20247869-SYF-ohr reporting. Sent message to patient and C [...] placed on Procardia until 35 weeks 07/08/2024: [facility] anatomy ultrasound: cervical length = 35.9 mm [...] patients who previously received 17P. Patient's primary WIRE CUTTER can coordinate therapy if desired. For patients [...] as of this encounter (statuses as of 08/16/2024) Resolved Problems Problem Noted Date Diagnosed Date Resolved Date Current with histo ry of pre-term labor 02/18/2009 06/28/2024 documented as of this encounter (statuses as of 08/16/2024) Immunizations Name Administration Dates Next Due TDAP, [...] Progress Notes * Anna Jara DO - 08/15/2024 11:10 AM EDT Priyanka presented today at 29w6d for an ultrasound for the following indications: Obesity in , antepartum Diet controlled gestational diabetes mellitus (GDM) in third trimester Assessment & Plan: Not reporting sugars. Appt made for 08/19. Multigravida of advanced maternal age in third trimester 29 weeks gestation of Ultrasound summary: Patient presented at 29w 6d for growth assessment. Normal growth with EFW 1451 g at 34%ile. Normal ROSA at 13 cm. Cephalic presentation. I reviewed the ultrasound images. Priyanka was given the opportunity to meet with me if she had any questions. Please refer to the ultrasound report for additional details about today's ultrasound examination. RECOMMENDATIONS: Recommend follow up ultrasound with MFM in 4-6 weeks for growth secondary to above indications. See prior formal MFM consultation note. Thank you for allowing us to participate in the care of this patient. Please call with any questions. Anna Jara DO 08/15/2024 11:10 AM documented in this encounter Miscellaneous Notes * Assessment & Plan Note - Anna Jara DO - 08/15/2024 8:58 AM EDT Associated Problem(s): GDM (gestational diabetes mellitus) Not reporting sugars. Appt made for 08/19. documented in this encounter Plan of Treatment Upcoming Encounters Date Type Department Care Team (Late st Contact Info) Description 08/19/2024 7:30 AM EDT Telemedicine Improvement Rn Obstetric [facility] [place] [address] [facility] [place] [phone] Dee Holder CRNP [address] [place] [address] 08/19/2024 8:00 AM EDT Telemedicine Improvement Rn Obstetric [facility], [place] [address] [place] [facility] [phone] Dee Holder CRNP [address] [facility] [address] 08/28/2024 8:15 AM EDT Office Visit Gynecology/Obstetrics [facility] [address] [facility] [place] [address] Mary Weathers CRNP [address] [place] [address] 09/09/2024 8:30 AM EST Office Visit Gynecology/Obstetrics [facility] [address] [place] [address] Charleen Su CRNP [address] [place] [address] 09/19/2024 8:00 AM EST Imaging Maternal Medicine Imaging, [facility] [address] [place] [phone] 09/23/2024 8:30 AM EST Office Visit Gynecology/Obstetrics [facility] [address] [place] [address] BackCharleen fish CRNP [address] [place] [address] 09/30/2024 8:30 AM EST Office Visit Gynecology/Obstetrics [facility] [address] [place] [address] BackCharleen fish CRNP [address] [place] [address] 10/07/2024 8:30 AM EST Office Visit Gynecology/Obstetrics [facility] [address] [place] [address] BackerCharleen CRNP [address] [place] [address] 10/15/2024 8:00 AM EST Office Visit Gynecology/Obstetrics [facility] [address] [place] [address] Anthony Laguna MD [address] [place] [phone] 10/17/2024 8:00 AM EST Imaging Maternal Medicine Imaging, [facility] [address] [place] [phone] Health Maintenance Due Date Last Done Comments [...] trimester 29 weeks gestation of state, incidental documented in this encounter Advance Directives * Full Code (Latest Code Status on File) Date Activated Date Inactivated Comments 02/18/2009 4:31 PM 02/26/2009 8:21 PM Care Teams Cot Assembler Relationship Specialty Start Date End Date Sandra Vega DO [address] [place], [place] [address] PCP - General Family Medicine 10/17/12 documented as of this encounter
--- OUTSIDE RECORDS SUMMARY | 2024-10-29 08:07 | External Medical Summary | Continuity of Care Document ---
Author Name Unknown Organization [address] Address [address] [place] [id number] Care Team Providers Care Pack Out Operator Name Role Phone Sandra Vega Primary Care Physician [phone] Encounter [facility] [id number] Date(s): 08/15/24 - 08/15/[address] [place] [address], [facility] [address] [place] [address] [place] [phone] Encounter Diagnosis Body mass index [BMI] 32.0-32.9, adult(Discharge Diagnosis) - 08/15/24 ANXIETY(Discharge Diagnosis) - 08/15/24 (Discharge Diagnosis) - 08/15/24 Discharge Disposition: Home or Self Care Attending Physician: Justen Maldonado DO, Mariana Annette Referring Physician: Justen Maldonado DO, Mariana Annette Allergies, Adverse Reactions, Alerts Substance Criticality Severity Reaction Reaction Severity Status cyclobenzaprine 1 Ac tive CeleXA more anxiety Active 1palpitations, psychosis Assessment and Plan Extracted from: Title:Anxiety Author:DO Strickland Sophia El izabeth Date:08/15/24 1.ANXIETY - chronic, not at goal - goal: reduce symptoms - recommend continuation of increased zoloft (50mg) daily - will trial [id number] daily PRN - f/u in 2 weeks; if no improvement, may consider increasing buspar and/or zoloft 2. - chronic, at goal - goal: continued monitoring - will check TSH/T4 in setting of and acutely worse anxiety - f/u in 2 weeks Immunizations Given and Recorded Vaccine Date Status [...] ded 1Result Comment: [08/08/2012] had disease Medications BuSpar Dividose 15 mg oral tablet Start: 08/15/24 11:44:00 AM EDT, 1 tab, PO, Daily, Disp# 30 tab, Refills: 1, Take 1/3 of a pill up to 1 pill daily, Pharmacy: [facility] Start Date: 08/15/24 Status: Ordered Zoloft 25 mg oral tablet Start: 02/29/24 1:41:00 PM EDT, 2 tab, PO, qhs, Disp# 60 tab, Refills: 11, Pharmacy: [facility] Start Date: 02/29/24 Status: Ordered Mental Status 08/15/24 Barriers to Learning one year None evide nt Mandatory Health Literacy Documentation Yes Health Literacy Communication Barriers N ever Primary Language Mauritanian Problem List Condition Confirmation Course Effective Dates [...] Diagnosis Diagnosis Type Effective Dates Health Status Cl inical Service Informant ANXIETY Discharge Diagnosis 08/15/24 Non-Specified Body mass index [BMI] 32.0-32.9, adult Discharge Diagnosis 08/15/24 Non-Specified Discharge Diagnosis 08/15/24 Non-Specified Procedures Procedure Date Related Diagnosis Body Site Status Excision of Bartholin's cyst 1 04/21/22 Completed Groin abscess 2 04/21/22 Completed x-ray of si joint 3 08/24/19 Compl eted X-ray of cervical spine 4 10/22/18 Completed Ultrasound,pelvic 06/10/16 Complet ed Ultrasound kidneys and bladder 05/25/16 Completed Cholecystectomy Completed Hemorrhoidectomy Complete d IUD, copper Completed KUB X-ray Completed Holly tooth 5 Completed 1infected abscess of vulva 2excision and drainage of groin cyst and abscess 3Unremarkable sacroiliac joint x-ray. 4No significant bony abnormalities 5wisdom tooth extraction Vital Signs Most recent to oldest [Reference Range]: 1 2 Height 164.5 cm (08/15/24 11:23 AM) Patient Weight 88.8 kg (08/15/24 11:23 AM) Body Mass Index 32.82 kg/m2 (08/15/24 11:23 AM) Temperature [36.5-37.9 DegC] 36.2 DegC *LOW* (08/15/24 11:23 AM) Heart Rate 96 bpm (08/15/24 11:23 AM) Blood Pressure 118/78mmHg (08/15/24 11:27 AM) 100/68mmHg (08/15/24 11:23 AM) Cuff Pulse Pressure 32 mmHg (08/15/24 11:23 AM) Social History Social History Type Response Tobacco Current every day sm oker, Cigarettes, 0.5 per day. Started age 17 Years. Smoking Status Never smoked cigaret bree Sex Female Sex Representation Female (finding) FCM Outpt Note * DO Strickland Sophia Elizabeth: PERFORM Campuzano Joel, DO, Rosita Rosanna: MODIFY Event Display: FCM Outpt Note Authored Date: [id number] Chief Complaint Panic/anxiety attacks are getting worse. BLANCO score--15. Dizzy/lightheadedness. Bp sitting 100/68. Standing 118/78 History of Present Illness Pt is a 34 yo [id number] PMH of anxiety and migraines presenting d/t anxiety and lightheadedness. Pt is currently 30 weeks . Pt switched from paxil (which she had been on for years)to zoloft. She was on 50mg daily but thendecreased to 25mg daily because things were going well. She increased back to 50mg two days agod/t herpanic attacksgetting worse. She has higher baseline anxiety with breakthrough panic. She recently had blood work which showed anemia to Hgb 11.7 andnormal CMP and A1c. Her pre mariella labs also show negative HCV, HIV, and treponema. She is immune to rubella. Her thyroid was not checked. Review of Systems As per HPI Physical Exam Vitals & Measurements T:36.2C HR:96(Monitored) BP:118/78 SpO2:98% HT:164.5cm WT:88.800kg(Dosing) WT:88.8kg BMI:32.82 PHQ2 Data(Data Documented on:08/15/2024 11:20) Emotional health assessment NEGATIVE General Anxiety Disorder Screening: BLANCO-7 Score:15 BLANCO-7 Problem Severity:Not at all General:well appearing, alert and oriented,no acute distress Cardiovascular: clinically well perfused Respiratory: respirations are non-labored Psych: Mood and affect congruent. Speech of normal pace and content. Assessment/Plan 1.ANXIETY - chronic, not at goal - goal: reduce symptoms - recommend continuation of increased zoloft (50mg) daily - will trial [id number] daily PRN - f/u in 2 weeks; if no improvement, may consider increasing buspar and/or zoloft 2. - chronic, at goal - goal: continued monitoring - will check TSH/T4 in setting of and acutely worse anxiety - f/u in 2 weeks Attestation Pt seen and examined in concert with Dr. Strickland, agree with history and physical as documented above. Plan reviewed in detail. Problem List/Past Medical History Ongoing ANXIETY Chronic [...] Date: 05/25/20 16CholecystectomyIUD, copperKUB X-rayWisdom toothHemorrhoidectomy Medications busPIRone(BuSpar Dividose 15 mg oral tablet), 15 mg= 1 tab, PO, Daily, 1 refills sertraline(Zoloft 25 mg oral tablet), 50 mg= 2 tab, PO, qhs, 11 refills Allergies CeleXAmore anxiety cyclobenzaprine Social History [...] due04/28/24and every 1year Due Adult COVID-19 Vaccination due08/15/24Unknown Frequency Adult Folic Acid Supplementation due08/15/24and every 3year Adult Social Determinants of Health Screening due08/15/24Unknown Frequency Adult Tdap/Td Vaccine due08/15/24Unknown Frequency Hepatitis C Screening due08/15/24One-time only Satisfied(in the past 1 year) Satisfied Body Mass Index on08/15/24.Satisfied by OSEI Rivera Angela Electronic Signature on File Electronically Reviewed/Signed by: Ayde Strickland DO Author Signature Dt/Tm:08/15/2024 11:53 AM Resident Department of Family Medicine Electronically Reviewed/Signed by: Rosita Maldonado DO Cosigner Signature Dt/Tm: 08/15/2024 12:38 PM Department of Family Medicine SES Patient Care team information Care Team Personnel Name: DO Vega Kristen M Position: Physician - Family Med Member Role: Primary Care Provider Address: [address] [place] [address] [place] Name: JIGAR Faulkner Shari A Position: Nurse Pract - Family Med Member Role: Lifetime Relationship Address: [address] [place] [address] [place] Care Team Related Persons Name: JASMYNE MANNIGN Name: INO BRUNO"
--- OUTSIDE RECORDS SUMMARY | 2024-10-29 08:07 | External Medical Summary | Summary of Care ---
Author Name Unknown Organization [facility] Address [address] [facility] [place] [address] Phone [phone] Care Team Providers Care Lens Polisher Name Role Phone Sandra Vega Primary Care Provider Reason for Visit * Reason Onset Date Comments Triage Advice 09/17/2024 Encounter Details Date Type Department Care Team (Late st Contact Info) Description 09/17/2024 Telephone Gynecology/Obstetrics [facility] [address] [place] [address] Anthony Laguna MD [address] [place] [phone] Triage Advice Allergies Active Allergy Reactions Criticality Noted Date Comments Citalopram Hydrobromide Other (Please comment) 02/18/2009 Increases anxiety-celexa Cyclobenzaprine 04/26/2021 documented as of this encounter (statuses as of 09/17/2024) Medications 28-0.8 MG Oral Tablet Take by mouth. Active [employer] Verio Flex System w/Device Kit Use to test blood sugars 4 times daily (fasting, 1 hour after breakfast, lunch, and dinner) 1 Kit 06/19/2024 Active NavigenicsTouch Verio In Vitro Strip (Glucose Blood) Use [...] after meals. Reviewed diet and exercise recommendations. 07/15/[id number]-qcwhhdct 2 fasting blood sugars and 3 post prandial breakfast; stable. Messaged to be consistent with testing four times daily and reporting. Will review again next week. 07/22/[id number]-GPN-jjlhatp blood sugars overall stable (2 of 7 elevated fasting blood sugars). Reported only 5 post prandial numbers in the past week. Again messaged to be consistent with testing four times daily. Will schedule follow up ADAPT appointment next week if still with minimal post prandial reporting. 07/29/[id number]-xquqsah stable (< 50% fasting blood sugars elevated). Minimal post prandial values. Patient and C PARs messaged to schedule follow up ADAPT appointment. 08/05/24: Follow-up ADAPT visit complete; minimal reporting in [facility] R[facility]; no blood sugars to review today - patient to send message with updated log; continue diet controlled; recommend Nutrition visit 08/15/[id number]-BNQ-yjo reporting. Sent message to patient and C [...] and reviewed importance of more consistent testing/reporting 09/02/20244212-TSF-ayb reporting. Sent message via [employer] and [employer] asking her to report. Sent message to [...] entering them into the [facility]. 09/09/20243380-LXH-dul reporting. Sent message via [employer] and [employer] asking her to report. 09/16/24: Pt not reporting BG readings. State she will being readings to her [facility] appoint on 09/19/24 Assessment & Plan (08/15/2024 [...] Recommend nutrition consult with RDN (Registered Dietitian Cost Manager). Lifestyle changes are also indicated including [...] patients who previously received 17P. Patient's primary CAMOUFLAGE ASSEMBLER can coordinate therapy if desired. For patients [...] money to get more. Never true 05/27/2024 [place] Depression Scale Answer Date Recorded [place] Depression Scale Total 3 09/09/2024 The thought [...] encounter Miscellaneous Notes * Telephone Encounter - Racquel Kenyon LPN - 09/17/2024 8:17 AM EST TC from patient reporting period like cramps and low back pain since last night. Has not yet tried tylenol. +fm last night, reports she hasn't felt baby yet today but she is at work currently. Denies Lof, vb, ctx. Recommend comfort measures and tylenol for now and kick count. Patient to eat, drink and do kick count now. She accepted appt in the office today at 1145 but will call cali if not getting movements or of change in condition to be seen sooner. documented in this encounter Plan of Treatment Upcoming Encounters Date Type Department Care Team (Late st Contact Info) Description 09/17/2024 11:45 AM EST Office Visit Gynecology/Obstetrics [facility] [address] [address] Charleen Su CRNP [address] [place] [address] 09/19/2024 8:00 AM EST Imaging [facility]aternal Medicine [facility], [facility] [address] [place] [address] 09/19/2024 8:00 AM EST Office Visit Brass Polisher Obstetrics Maternal Medicine, [facility] [address] [place] [address] Estefani Annajen Jang, DO [address] [facility] [place] [address] 09/23/2024 8:30 AM EST Office Visit Gynecology/Obstetrics [facility] [address] [place] [address] Charleen Su CRNP [address] [place] [address] 10/01/2024 8:30 AM EST Office Visit Gynecology/Obstetrics [facility] [address] [place], [place] [address] Charleen Su CRNP [address] [place] [address] 10/09/2024 9:00 AM EST Office Visit Gynecology/Obstetrics [facility] [address] [place] [address] Mary Weathers CRNP [address] [place] [address] Rambo, Non Stress Tests Yo [address] [place] [address] 10/16/2024 9:00 AM EST Office Visit Gynecology/Obstetrics [facility] [address] [place] [address] Mary Weathers CRNP [address] [place] [address] Rambo Non Stress Tests Yo [address] [place] [address] 10/17/2024 8:00 AM EST Imaging Maternal Medicine Imaging, [facility] [address] [place] [phone] Health Maintenance Due Date [...] 4:31 PM 02/26/2009 8:21 PM Care Teams Lens Polisher Relationship Specialty Start Date End Date Sandra Vega DO 6 Pipo Wilkinson [address] [place] [address], [place] [address] PCP - General Family Medicine 10/17/12 documented as of this encounter
--- OUTSIDE RECORDS SUMMARY | 2024-10-29 08:07 | External Medical Summary | Summary of Care ---
Author Name Unknown Organization [facility] Address [address] [facility] [place] [address] Phone [phone] Care Team Providers Care Crossing Tender Name Role Phone Sandra Vega Primary Care Provider Reason for Visit * Reason Comments Return Visit Encounter Details Date Type Department Care Team (Late st Contact Info) Description 09/09/2024 8:30 AM EST Office Visit Gynecology/Obstetric s [facility] [address] [place] [address] BackerCharleen CRNP [address] [place] [address] Supervision of high risk in third trimester*; Diet controlled gestational diabetes mellitus (GDM) in third trimester; H/O delivery, currently ; Multigravida of advanced maternal age in third trimester; Depression complicating , antepartum; Obesity in , antepartum Allergies Active Allergy Reactions Criticality Noted Date Comments Citalopram Hydrobromide Other (Please comment) 02/18/2009 Increases anxiety-celexa Cyclobenzaprine 04/26/2021 documented as of this encounter (statuses as of 09/09/2024) Medications 28-0.8 MG Oral Tablet Take by mouth. Active [employer] MidstreamTouch Verio Flex System w/Device Kit Use to [...] as of this encounter (statuses as of 09/09/2024) Active Problems Problem Noted Date Diagnosed Date [...] 07/11/24: MFM ADAPT consult complete. Enrolled in [employer]. Instructions provided to report blood sugars each week for MFM review; Discussed importance of testing FBS and 1 hour after meals. Reviewed diet and exercise recommendations. 07/15/[id number]-UYL-qihteqvo 2 fasting blood sugars and 3 post prandial breakfast; stable. Messaged to be consistent with testing four times daily and reporting. Will review again next week. 07/22/[id number]-ROU-rhyvgeo blood sugars overall stable (2 of 7 elevated fasting blood sugars). Reported only 5 post prandial numbers in the past week. Again messaged to be consistent with testing four times daily. Will schedule follow up ADAPT appointment next week if still with minimal post prandial reporting. 07/29/[id number]-WSL-pjlddzu stable (< 50% fasting blood sugars elevated). Minimal post prandial values. Patient and [facility] PARs messaged to schedule follow up ADAPT appointment. 08/05/24: Follow-up ADAPT visit complete; minimal reporting in [facility] R[facility]; no blood sugars to review today - patient to send message with updated log; continue diet controlled; recommend Nutrition visit 08/15/[id number]-KVU-bpf reporting. Sent message to patient and [facility] PARs to schedule follow up ADAPT appointment. [...] and reviewed importance of more consistent testing/reporting 09/02/20242192-COY-xyx reporting. Sent message via [employer] and [employer] asking her to report. Sent message to [facility] PARs to schedule follow up ADAPT appointment. [...] Recommend nutrition consult with RDN (Registered Dietitian Veterinary Practice Manager). Lifestyle changes are also indicated including [...] patients who previously received 17P. Patient's primary CORE PASTER can coordinate therapy if desired. For patients [...] as of this encounter (statuses as of 09/09/2024) Resolved Problems Problem Noted Date Diagnosed Date Resolved Date with 24 completed weeks gestation 07/11/2024 09/09/2024 ADVANCE DIRECTIVE INFORMATION 04/09/2009 09/02/2024 Overview (04/09/2009): No, Advance Directive brochure offered , patient declined. Current with histo ry of pre-term labor 02/18/2009 06/28/2024 documented as of this encounter (statuses as of 09/09/2024) Immunizations Name Administration Dates Next Due TDAP, [...] Sign Reading Time Taken Comments Blood Pressure 106/66 09/09/2024 8:30 AM EST Pulse - - Temperature - - Respiratory Rate - - Oxygen Saturation - - Inhaled Oxygen Concentration - - Weight 90.2 kg (198 lb 12.8 oz) 09/09/2024 8:30 AM EST Height - - Body Mass Index 35.22 04/25/2024 8:49 AM EDT documented in this encounter Progress Notes * Charleen Su CRNP - 09/09/2024 8:29 AM EST 33w3d Baby is active. No regular ctx, leaking, bleeding. GDMA 1, managed by ADAPT. Having difficulty checking glucose mid-day; trying to at least get fasting and 2 post-prandial readings. Reports they are normal. Scheduled with [facility] for a growth scan next week. Provided labor instructions. Discussed weekly NSTs at 37 weeks. 2 week return JIGAR Leo documented in this encounter Plan of Treatment Upcoming Encounters Date Type Department Care Team (Late st Contact Info) Description 09/19/2024 8:00 AM EST Imaging Maternal Medicine Imaging, [place] [phone] 09/23/2024 8:30 AM EST Office Visit Gynecology/Obstetrics [facility] [address] [place] [address] Charleen Su CRNP [address] [place] [address] 10/01/2024 8:30 AM EST Office Visit Gynecology/Obstetrics [facility] R[facility] [address] [place], [place] [address] Charleen Su CRNP [address] [place] [address] 10/09/2024 9:00 AM EST Office Visit Gynecology/Obstetrics [facility] [address] [place], [place] [address] Mary Weathers CRNP [address] [place] [address] Rambo Non Stress Tests [place] [address] [place] [address] 10/16/2024 9:00 AM EST Office Visit Gynecology/Obstetrics [facility] Ricks [address] [place] [address] Mary Weathers CRNP [address] [place] [address] Rambo Non Stress Tests [place] [address] [place] [address] 10/17/2024 8:00 AM EST Imaging Maternal Medicine Imaging, [place] [phone] Health Maintenance Due Date Last Done Comments [...] 4:31 PM 02/26/2009 8:21 PM Care Teams Crossing Tender Relationship Specialty Start Date End Date Sandra Vega DO 6 [facility] [address] [place] [address] PCP - General Family Medicine 10/17/12 documented as of this encounter
--- OUTSIDE RECORDS SUMMARY | 2024-10-29 08:07 | External Medical Summary | Continuity of Care Document ---
Author Name Unknown Organization [address] Address [address] [place] [phone] Care Team Providers Care Audio Visual Production Specialist Name Role Phone Sandra Vega Primary Care Physician [phone] [facility] [phone] Date(s): 08/28/24 - 08/28/[address] [place] [address], [address] [place] [address] [phone] Encounter Diagnosis BPPV (benign paroxysmal positional vertigo)(Discharge Diagnosis) - 08/28/24 Discharge Disposition: Home or Self Care Attending Physician: DO Vega Kristen M Referring Physician: DO Vega Kristen M Allergies, Adverse Reactions, Alerts Substance Criticality Severity Reaction Reaction Severity Status cyclobenzaprine 1 Ac tive CeleXA more anxiety Active 1palpitations, psychosis Assessment and Plan Extracted from: Title:Office Visit Note Author:Rosa Abraham Date:08/28/24 Dizziness, Anxiety Consider Persistent Postural-Perceptual Dizziness vs BPPV Increase Zoloft to 75mg each night Add Meclizine 25 mg TID PRN Refer to Vestibular PT for assessment Order urine culture to assess for bacteruria Follow up in 2 weeks or sooner if needed. Extracted from: Title:Office Visit Note Author:DO Vega Kriste n M Date:08/28/24 1.BPPV (benign paroxysmal positional vertigo) Chronic condition, stable Goal:Resolution Data:unique tests ordered: _ Plan: _I believe this may be PPPD PT--see if that happens meclizine prn zoloft increase to 75 Urine culture--pt states OB ordered one OB provider aware of both medications. Immunizations Given and Recorded Vaccine Date Status [...] 1, PRN: as needed for dizziness, Pharmacy: [facility] Start Date: 08/28/24 Stop Date: 09/17/24 Status: Ordered Zoloft 50 mg oral tablet Start: 08/28/24 10:01:00 AM EDT, 1 tab, PO, Daily, Disp# 30 tab, Refills: 6, Pharmacy: [facility] Start Date: 08/28/24 Stop Date: 03/26/25 Status: Ordered Mental Status 08/28/24 Barriers to Learning one year None evide nt Mandatory Health Literacy Documentation Yes Health Literacy Communication Barriers N ever Primary Language Korean Problem List Condition Confirmation Course Effective Dates [...] Effective Dates Health Status Clinical Service Informant BPPV (benign paroxysmal positional vertigo) Discharge Diagnosis 08/28/24 Non-Specified Procedures Procedure Date Related Diagnosis Body Site Status Excision of Bartholin's cyst 1 04/21/22 Completed Groin abscess 2 04/21/22 Completed x-ray of si joint 3 08/24/19 Compl eted X-ray of cervical spine 4 10/22/18 Completed Ultrasound,pelvic 06/10/16 Complet ed Ultrasound kidneys and bladder 05/25/16 Completed Cholecystectomy Completed Hemorrhoidectomy Complete d IUD, copper Completed KUB X-ray Completed Mims tooth 5 Completed 1infected abscess of vulva 2excision and drainage of groin cyst and abscess 3Unremarkable sacroiliac joint x-ray. 4No significant bony abnormalities 5wisdom tooth extraction Vital Signs Most recent to oldest [Reference Range]: 1 Patient Weight 88.3 kg (08/28/24 9:20 AM) Temperature [36.5-37.9 DegC] 36.6 DegC (08/28/24 9:20 AM) Blood Pressure 118/72mmHg (08/28/24 9:20 AM) Cuff Pulse Pressure 46 mmHg (08/28/24 9:20 AM) Social History Social History Type Response Tobacco Current every day sm oker, Cigarettes, 0.5 per day. Started age 17 Years. Smoking Status Never smoked cigaret bree Sex Female Sex Representation Female (finding) FCM Outpt Note * Rosa Abraham: PERFORM, MODIFY, MODIFY, MODIFY Event Display: FCM Outpt Note Authored Date: Chief Complaint Pt here for vertigo for contstant vertigo since June. Not anxiety and panic History of Present Illness Priyanka is a 34 F with a hxanxiety, migraine presenting for 2 wk follow up of dizziness,anxiety. She is currently 32 wk (). Switched from Paxil to Zoloft for . Recentdecrease from 50 mg to 25 mg which was not tolerated well, so returned to 50 mg 2 wks ago. Also added 5mg- 15mgBuspar PRN-was taking 3x/ day. Stopped Buspar yesterday because she did notfeel that it improved her anxiety. Endorsed constant dizziness since mid June. Feels off balance,confusion, clammy, chills. Describesdizziness as being intoxicated without the visual disturbances. Feels this all the time-evenin the middle of the night. Feels increasing anxiety related to this dizziness which she cannot control. Dizziness is sometimes improved by laying down with feetelevated. Endorses nausea without vomiting. Symptoms are worse when she is looking down a hallway or using a computer versus outside. TSH ordered but not yet drawn Review of Systems CONSTITUTIONAL: Denies fever, chills, illness during HEENT: Denies tinnitus, vision changes RESPIRATORY: Denies SOB or cough. CV: Denies chest pain or palpitations. GI: Endorses nausea. Denies vomiting or diarrhea. SKIN: Denies rash. NEUROLOGICAL: Denies changes in cognition, "brain fog" PSYCHIATRIC: Endorses anxiety related to constant feeling of dizziness Physical Exam Vitals & Measurements T:36.6C BP:118/72 SpO2:98% WT:88.300kg(Dosing) WT:88.3kg PHQ2 Data(Data Documented on:08/28/2024 09:20) Emotional health assessment NEGATIVE GENERAL: Appears to be dizzy. Supporting her head in her hands and tilting head to side for most ofappointment. Well developed and well nourished. Vital signs reviewed as above. EYES: No nystagmus.EOMI. Anicteric sclerae. HENT: Moist mucous membranes. RESPIRATORY: Clear to auscultation bilaterally.No wheezing, rales, orrhonchi. CARDIOVASCULAR: Regularrate and rhythm.No murmurs. EXTREMITIES: No gross deformities. SKIN: Warm, dry. NEUROLOGIC: Alert and oriented. Normal speech. No gross focal neurological deficits. PSYCHIATRIC: Cooperative. Appropriate mood and affect. Assessment/Plan Dizziness, Anxiety Consider Persistent Postural-Perceptual Dizziness vs BPPV Increase Zoloft to 75mg each night Add Meclizine 25 mg TID PRN Refer to Vestibular PT for assessment Order urine culture to assess for bacteruria Follow up in 2 weeks or sooner if needed. Problem List/Past Medical History Ongoing ANXIETY Chronic [...] due04/28/24and every 1year Due Adult COVID-19 Vaccination due08/28/24Unknown Frequency Adult Folic Acid Supplementation due08/28/24and every 3year Adult Social Determinants of Health Screening due08/28/24Unknown Frequency Adult Tdap/Td Vaccine due08/28/24Unknown Frequency Hepatitis C Screening due08/28/24One-time only Satisfied(in the past 1 year) Satisfied Body Mass Index on08/15/24.Satisfied by OSEI Rivera Angela Electronic Signature on File Electronically Reviewed/Signed by: Rosa Abraham Author Signature Dt/Tm:08/28/2024 11:08 AM Medical Student Electronically Reviewed/Signed by: Sandra Vega DO Cosigner Signature Dt/Tm: 08/28/2024 03:59 PM Department of Family Medicine [facility] * DO Vega Kristen M: PERFORM Event Display: FCM Outpt Note Authored Date: [id number] Chief Complaint Pt here for vertigo for contstant vertigo since June. Not anxiety and panic History of Present Illness Pt presents at 32 weeks and was seen for anxiety exacerbation. The provider added BuSparwhich she states didn't work on top of her zoloft. Pt states she feels like she is anxious from aconstant vertigo. She denies any changes in her vision. Sometimes relieved with lying flat. No issues with driving. She states she is just uncomfortable. Not positional--all the time Physical Exam Vitals & Measurements T:36.6C BP:118/72 SpO2:98% WT:88.300kg(Dosing) WT:88.3kg PHQ2 Data(Data Documented on:08/28/2024 09:20) Emotional health assessment NEGATIVE G: AAAOx3, NAD N: no nystagmus P: normal affect and insight, no homicidal/suicidal ideation Assessment/Plan 1.BPPV (benign paroxysmal positional vertigo) Chronic condition, stable Goal:Resolution Data:unique tests ordered: _ Plan: _I believe this may be PPPD PT--see if that happens meclizine prn zoloft increase to 75 Urine culture--pt states OB ordered one OB provider aware of both medications. Attestation I spent4 mintime in previsit planning including prepping note and chart review . I spent19 time in face to face interaction with patient concerning the issues that brought them in today. I spent4 min time in post visit planning including finishing note and depart process Total time spent today on patient visit27 min Problem List/Past Medical History Ongoing ANXIETY [...] due04/28/24and every 1year Due Adult COVID-19 Vaccination due08/28/24Unknown Frequency Adult Folic Acid Supplementation due08/28/24and every 3year Adult Social Determinants of Health Screening due08/28/24Unknown Frequency Adult Tdap/Td Vaccine due08/28/24Unknown Frequency Hepatitis C Screening due08/28/24One-time only Satisfied(in the past 1 year) Satisfied Body Mass Index on10/17/24.Satisfied by OSEI Rivera Angela Electronic Signature on File Electronically Reviewed/Signed by: Sandra Vega DO Author Signature Dt/Tm:08/28/2024 10:09 AM Department of Family Medicine [facility] Patient Care team information Care Team Personnel Name: DO Vega Kristen M Position: Physician - Family Med Member Role: Primary Care Provider Address: [address] [place] [address] Name: JIGAR Faulkner Shari A Position: Nurse Pract - Family Med Member Role: Lifetime Relationship Address: [address] [place] [address]
--- OUTSIDE RECORDS SUMMARY | 2024-10-29 08:07 | External Medical Summary | Summary of Care ---
Author Name Unknown Organization [facility] Address [address] [place] [address] Phone [phone] Care Team Providers Care Waste/Materials Exchange Specialist Name Role Phone Sandra Vega Primary Care Provider Encounter Details Date Type Department Care Team (Late st Contact Info) Description 09/02/2024 Telephone Methods Analyst Obstetrics Maternal Medicine, [place] [address] [place] [address] [place], Nurse Methods Analyst [facility] [address] [place] [address] Allergies Active Allergy Reactions Criticality Noted Date Comments Citalopram Hydrobromide Other (Please comment) 02/18/2009 Increases anxiety-celexa Cyclobenzaprine 04/26/2021 documented as of this encounter (statuses as of 09/02/2024) Medications Medication Sig Dispensed Refills Start Date End Date Status 28-0.8 MG Oral Tablet Take by mouth. Active [employer]o Verio Flex System w/Device Kit Use to test blood sugars 4 times daily (fasting, 1 hour after breakfast, lunch, and dinner) 1 Kit 06/19/2024 Active Quando Technologiesuch Verio In Vitro Strip (Glucose Blood) Use to test blood sugars 4 times daily (fasting, 1 hour after breakfast, lunch, and dinner) 125 Strip 6 06/19/2024 Active Courtagen Life SciencesTouch Delica Lancets 30G Use to test blood [...] as of this encounter (statuses as of 09/02/2024) Active Problems Problem Noted Date Diagnosed Date with 24 completed weeks gestation 06/30 Supervision of high risk in [facility] 06/28/2024 Obesity in , antepartum 06/28/2024 [...] 07/11/24: MFM ADAPT consult complete. Enrolled in [employer]. Instructions provided to report blood sugars each week for MFM review; Discussed importance of testing FBS and 1 hour after meals. Reviewed diet and exercise recommendations. 07/15/[id number] 2 fasting blood sugars and 3 post prandial breakfast; stable. Messaged to be consistent with testing four times daily and reporting. Will review again next week. 07/22/[id number] blood sugars overall stable (2 of 7 elevated fasting blood sugars). Reported only 5 post prandial numbers in the past week. Again messaged to be consistent with testing four times daily. Will schedule follow up ADAPT appointment next week if still with minimal post prandial reporting. 07/29/[id number] stable (< 50% fasting blood sugars elevated). Minimal post prandial values. Patient and [facility] PARs messaged to schedule follow up ADAPT appointment. 08/05/24: Follow-up ADAPT visit complete; minimal reporting in [facility] RPM; no blood sugars to review today - patient to send message with updated log; continue diet controlled; recommend Nutrition visit 08/15/[id number] reporting. Sent message to patient and [facility] PARs to schedule follow up ADAPT appointment. [...] and reviewed importance of more consistent testing/reporting 09/02/[id number]-MRG-lzs reporting. Sent message via [employer] and [facility] asking her to report. Sent message to [facility] PARs to schedule follow up ADAPT appointment. [...] patients who previously received 17P. Patient's primary CENTER DIRECTOR can coordinate therapy if desired. For patients [...] as of this encounter (statuses as of 09/02/2024) Resolved Problems Problem Noted Date Diagnosed Date Resolved Date Current with histo ry of pre-term labor 02/18/2009 06/28/2024 documented as of this encounter (statuses as of 09/02/2024) Immunizations Name Administration Dates Next Due TDAP, [...] Telephone Encounter - Tammi Anguiano OSA - 09/02/2024 1:56 PM EST Phone call to pt. No answer, could not leave voicemail. documented in this encounter Plan of Treatment Upcoming Encounters Date Type Department Care Team (Late st Contact Info) Description 09/09/2024 8:30 AM EST Office Visit Gynecology/Obstetrics [facility] [address] [place] [address] BackCharleen fish CRNP [address] [place] [address] 09/19/2024 8:00 AM EST Imaging Maternal Medicine Imaging, [facility] [address] [place] [phone] 09/23/2024 8:30 AM EST Office Visit Gynecology/Obstetrics [facility] [address] [place] [address] BackCharleen fish CRNP [address] [place] [address] 10/01/2024 8:30 AM EST Office Visit Gynecology/Obstetrics [facility] [address] [place] [address] BackerCharleen CRNP [address] [place] [address] 10/07/2024 8:30 AM EST Office Visit Gynecology/Obstetrics [facility] [address] [place] [address] BackCharleen fish CRNP [address] [place] [address] 10/15/2024 8:00 AM EST Office Visit Gynecology/Obstetrics [facility] [address] [place] [address] Anthony Laguna MD [address] [place] [address] 10/17/2024 8:00 AM EST Imaging Maternal Medicine Imaging, [facility] [address] [place] [phone] Health Maintenance Due Date Last Done Comments [...] 4:31 PM 02/26/2009 8:21 PM Care Teams Waste/Materials Exchange Specialist Relationship Specialty Start Date End Date Sandra Vega DO [address] [facility] [address] Wilkinson [address] [place] [address] PCP - General Family Medicine 10/17/12 documented as of this encounter
--- OUTSIDE RECORDS SUMMARY | 2024-10-29 08:08 | External Medical Summary | Summary of Care ---
Author Name Unknown Organization [facility] Address [address] [place] [address] Phone [phone] Care Team Providers Care Instructional Technology Facilitator Name Role Phone Sandra Vega Primary Care Provider Reason for Visit * Reason Onset Date Comments Appointment 08/14/2024 Encounter Details Date Type Department Care Team (Late st Contact Info) Description 08/14/2024 Telephone Racing Mechanic Obstetrics Maternal Medicine, [place] [address] [place] [address] [place], Nurse Racing Mechanic [facility] [address] [place] [address] Appointment Allergies Active Allergy Reactions Criticality Noted Date Comments Citalopram Hydrobromide Other (Please comment) 02/18/2009 Increases anxiety-celexa Cyclobenzaprine 04/26/2021 documented as of this encounter (statuses as of 08/14/2024) Medications Medication Sig Dispensed Refills Start Date End Date Status 28-0.8 MG Oral Tablet Take by mouth. Active Salman Enterprisesio Flex System w/Device Kit Use to test blood sugars 4 times daily (fasting, 1 hour after breakfast, lunch, and dinner) 1 Kit 06/19/2024 Active [employer]uch Verio In Vitro Strip (Glucose Blood) Use to test blood sugars 4 times daily (fasting, 1 hour after breakfast, lunch, and dinner) 125 Strip 6 06/19/2024 Active MemonicTouch Delica Lancets 30G Use to test blood sugars 4 times daily (fasting, 1 hour after breakfast, lunch, and dinner) 200 Each 6 06/19/2024 Active Sertraline HCl 25 MG Oral Tablet (Zoloft) Take 1 Tablet by mouth in the morning. 06/28/2024 Active documented as of this encounter (statuses as of 08/14/2024) Active Problems Problem Noted Date Diagnosed Date with 24 completed weeks gestation 06/30 Supervision of high risk in [facility] 06/28/2024 Obesity in , antepartum 06/28/2024 [...] after meals. Reviewed diet and exercise recommendations. 07/15/[id number] 2 fasting blood sugars and 3 post prandial breakfast; stable. Messaged to be consistent with testing four times daily and reporting. Will review again next week. 07/22/[id number] blood sugars overall stable (2 of 7 elevated fasting blood sugars). Reported only 5 post prandial numbers in the past week. Again messaged to be consistent with testing four times daily. Will schedule follow up ADAPT appointment next week if still with minimal post prandial reporting. 07/29/[id number] stable (< 50% fasting blood sugars elevated). Minimal post prandial values. Patient and [facility] PARs messaged to schedule follow up ADAPT appointment. 08/05/24: Follow-up ADAPT visit complete; minimal reporting in [facility] RPM; no blood sugars to review today - patient to send message with updated log; continue diet controlled; recommend Nutrition visit Last Assessment & Plan: CONSIDERATIONS: Reviewed etiology and risks associated with [...] Recommend nutrition consult with RDN (Registered Dietitian Commissions Coordinator). Lifestyle changes are also indicated including optimizing [...] if not completed). H/O delivery, currently 024 Overview: 2008: history [...] patients who previously received 17P. Patient's primary VARNISH SUPERVISOR can coordinate therapy if desired. For [...] as of this encounter (statuses as of 08/14/2024) Resolved Problems Problem Noted Date Diagnosed Date Resolved Date Current with histo ry of pre-term labor 02/18/2009 06/28/2024 documented as of this encounter (statuses as of 08/14/2024) Immunizations Name Administration Dates Next Due TDAP, [...] Telephone Encounter - Mirela Rea OSA - 08/14/2024 11:12 AM EDT Spoke with Priyanka. Appointment scheduled. Patient aware of date, time and location of Maternal Medicine appointment. documented in this encounter Plan of Treatment Upcoming Encounters Date Type Department Care Team (Late st Contact Info) Description 08/15/2024 8:45 AM EDT Imaging Maternal Medicine Imaging, [address] [place] [phone] 08/15/2024 8:45 AM EDT Office Visit Racing Mechanic Obstetrics Maternal Medicine, [facility] [address] [facility] [place] [address] Anna Jara, DO [address] [place] [address] 08/19/2024 8:00 AM EDT Telemedicine Racing Mechanic Obstetric [facility] [address] [place] [phone] Dee Holder CRNP [address] [place] [address] 08/28/2024 8:15 AM EDT Office Visit Gynecology/Obstetrics [facility] [address] Mary Weathers [facility] [address] 09/09/2024 8:30 AM EST Office Visit Gynecology/Obstetrics [facility] [address] [place] [address] Backer, JIGAR Barba [address] [place] [address] 09/19/2024 8:00 AM EST Imaging Maternal Medicine Imaging, [facility] [address] [place] [address] 09/23/2024 8:30 AM EST Office Visit Gynecology/Obstetrics [facility] [address] [place] [address] Backer, JIGAR Barba [address] [place] [address] 09/30/2024 8:30 AM EST Office Visit Gynecology/Obstetrics [facility] [address] [place] [address] Backer, JIGAR Barba [address] [place] [address] 10/07/2024 8:30 AM EST Office Visit Gynecology/Obstetrics [facility] [address] [place] [address] Backer, JIGAR Barba [address] [place] [address] 10/15/2024 8:00 AM EST Office Visit Gynecology/Obstetrics [facility] [address] [place] [address] Anthony Laguna MD [address] [place] [address] 10/17/2024 8:00 AM EST Imaging Maternal Medicine Imaging, [facility] [address] [place] [address] 10/21/2024 8:30 AM EST Office Visit Gynecology/Obstetrics [facility] [address] [place] [address] BackCharleen fishJIGAR mims [address] [place] [address] Health Maintenance Due Date Last Done Comments [...] 4:31 PM 02/26/2009 8:21 PM Care Teams Instructional Technology Facilitator Relationship Specialty Start Date End Date Sandra Vega DO [facility] Pipo Wilkinson [address] [place] [address], [place] [address] PCP - General Family Medicine 10/17/12 documented as of this encounter
--- OUTSIDE RECORDS SUMMARY | 2024-10-29 08:08 | External Medical Summary | Summary of Care ---
Author Name Unknown Organization [facility] Address [address] [place] [address] Phone [phone] Care Team Providers Care Ticket Taker Name Role Phone Sandra Vega Primary Care Provider Encounter Details Date Type Department Care Team (Late st Contact Info) Description 08/15/2024 8:45 AM EDT Office Visit Certified Nurse Obstetrics [facility]aternal Medicine, [address] [place] [address] Anna Jara DO [address] [place] [address] Obesity in , antepartum*; Diet controlled gestational diabetes mellitus (GDM) in third trimester; Multigravida of advanced maternal age in third trimester; 29 weeks gestation of Allergies Active Allergy Reactions Criticality Noted Date Comments Citalopram Hydrobromide Other (Please comment) 02/18/2009 Increases anxiety-celexa Cyclobenzaprine 04/26/2021 documented as of this encounter (statuses as of 08/15/2024) Medications Medication Sig Dispensed Refills Start Date End Date Status 28-0.8 MG Oral Tablet Take by mouth. Active [employer] Verio Flex System w/Device Kit Use to test blood sugars 4 times daily (fasting, 1 hour after breakfast, lunch, and dinner) 1 Kit 06/19/2024 Active OnCore Golf TechnologyTouch Verio In Vitro Strip (Glucose Blood) Use to test blood sugars 4 times daily (fasting, 1 hour after breakfast, lunch, and dinner) 125 Strip 6 06/19/2024 Active OnCore Golf TechnologyTouch Delica Lancets 30G Use to test blood sugars 4 times daily (fasting, 1 hour after breakfast, lunch, and dinner) 200 Each 6 06/19/2024 Active Sertraline HCl 25 MG Oral Tablet (Zoloft) Take 1 Tablet by mouth in the morning. 06/28/2024 Active documented as of this encounter (statuses as of 08/15/2024) Active Problems Problem Noted Date Diagnosed Date with 24 completed weeks gestation 06/30 Supervision of high risk in [facility] 06/28/2024 Obesity in , antepartum [...] after meals. Reviewed diet and exercise recommendations. 07/15/[id number] 2 fasting blood sugars and 3 post prandial breakfast; stable. Messaged to be consistent with testing four times daily and reporting. Will review again next week. 07/22/[id number] blood sugars overall stable (2 of 7 elevated fasting blood sugars). Reported only 5 post prandial numbers in the past week. Again messaged to be consistent with testing four times daily. Will schedule follow up ADAPT appointment next week if still with minimal post prandial reporting. 07/29/[id number] stable (< 50% fasting blood sugars elevated). Minimal post prandial values. Patient and [facility] PARs messaged to schedule follow up ADAPT appointment. 08/05/24: Follow-up ADAPT visit complete; minimal reporting in RPM; no blood sugars to review today - patient to send message with updated log; continue diet controlled; recommend Nutrition visit 08/15/[id number] reporting. Sent message to patient and C [...] placed on Procardia until 35 weeks 07/08/2024: [facility] anatomy ultrasound: cervical length = 35.9 mm [...] patients who previously received 17P. Patient's primary SUBSTATION SUPERINTENDENT can coordinate therapy if desired. For patients [...] as of this encounter (statuses as of 08/15/2024) Resolved Problems Problem Noted Date Diagnosed Date Resolved Date Current with histo ry of pre-term labor 02/18/2009 06/28/2024 documented as of this encounter (statuses as of 08/15/2024) Immunizations Name Administration Dates Next Due TDAP, [...] Info) Description 08/19/2024 7:30 AM EDT Telemedicine Certified Nurse Obstetric [facility], [place] [address] [place] [phone] Dee Holder CRNP 3 [place] [address] 08/19/2024 8:00 AM EDT Telemedicine Certified Nurse Obstetric [facility], [place] [address] [place] [phone] Dee Holder CRNP [address] [place] [address] 08/28/2024 8:15 AM EDT Office Visit Gynecology/Obstetrics [facility] [address] [facility] [place] [address] Mary Weathers CRNP [address] [place] [address] 09/09/2024 8:30 AM EST Office Visit Gynecology/Obstetrics [facility] [address] [place] [address] Charleen Su CRNP [address] [place] [address] 09/19/2024 8:00 AM EST Imaging Maternal Medicine Imaging, [facility] [address] [place] [address] 09/23/2024 8:30 AM EST Office Visit Gynecology/Obstetrics [facility] [address] [place] [address] BackCharleen fish CRNP [address] [place] [address] 09/30/2024 8:30 AM EST Office Visit Gynecology/Obstetrics [facility] [address] [place] [address] BackCharleen fish CRNP [address] [place] [address] 10/07/2024 8:30 AM EST Office Visit Gynecology/Obstetrics [facility] [address] [place] [address] BackerCharleen CRNP [address] [place] [address] 10/15/2024 8:00 AM EST Office Visit Gynecology/Obstetrics [facility] [address] [place] [address] Anthony Laguna MD [address] [place] [address] 10/17/2024 8:00 AM EST Imaging Maternal Medicine Imaging, [facility] [address] [place] [address] Health Maintenance Due Date Last Done Comments [...] 4:31 PM 02/26/2009 8:21 PM Care Teams Ticket Taker Relationship Specialty Start Date End Date Sandra Vega DO [address] [place], [place] [address] PCP - General Family Medicine 10/17/12 documented as of this encounter
[2024-10-29] MEDS ORDERED: LIDOCAINE 1% LOCAL 20 ML VIAL INFIL PRN (09:41)
--- NOTE | 2024-10-29 10:20 | Obstetrical Progress Note ---
Date of Service October 29, 2024 Assessment & Plan (1) Prolonged gestation: Plan: 34yo at 40.3 weeks induction of labor for prolonged gestation FHR; CAT1 Ctx; minimal VE; 1-2/post Bedside sono; VT Cytotec 50 Mcg Admission and Anticipated Discharge Date Admission Date: October 29, 2024 Results & Data Vital Signs (Past 12 Hours) Vital Signs Temp Pulse Resp BP 10/29/24 09:31 98 H 138/81 10/29/24 08:33 36.9 C 20 10/29/24 08:22 107 H 144/85 H
[2024-10-29 10:25] LABS: Hematocrit (blood only) 34.1 % (37.0-47.0); Hemoglobin 11.7 g/dl (12.0-16.0); Mean Corpuscular Hemoglobin 32.1 pg (25.0-34.0); Mean Corpuscular Hgb Conc 34.3 g/dL (32.0-36.0); Mean Corpuscular Volume 93.7 fL (80.0-100.0); Platelet Count 149 K/uL (130-400); RDW Coefficient of Variation 13.2 % (11.5-14.5); RDW Standard Deviation 45.1 fL (36.4-46.3); Red Blood Count 3.64 M/uL (4.20-5.40); White Blood Count 9.86 K/ul (4.8-10.8)
[2024-10-29] MEDS ORDERED: Nursing to Pharmacy Communication SCH (10:45)
[2024-10-29] MEDS: miSOPROStoL 50 MCG TAB PO SCH (10:52)
[2024-10-29] MEDS ORDERED: miSOPROStoL 50 MCG TAB PO SCH (12:00)
[2024-10-29] MEDS ORDERED: OXYTOCIN 30 UNITS/NSS 30 UNITS/500 ML BAG IV PRN ×2 (17:06→20:58)
[2024-10-29] MEDS ORDERED: SODIUM CHLORIDE 0.9% 500 ML IV SCH (17:45)
[2024-10-29] MEDS: SODIUM CHLORIDE 0.9% 1,000 ML IV SCH (18:00)
[2024-10-29] MEDS ORDERED: LIDOCAINE 2% MPF LOCAL 5 ML VIAL EPI PRN (18:18)
[2024-10-29] MEDS ORDERED: ROPIVACAINE 0.5% PF 5 MG/ML 20 ML VIAL EPI PRN (18:18)
[2024-10-29] MEDS ORDERED: NALOXONE HCL 1 MG in SODIUM CHLORIDE 0.9% 1,000 ML IV PRN (18:18)
[2024-10-29] MEDS ORDERED: NALOXONE HCL 0.4 MG/1 ML VIAL/CARP IV PRN (18:18)
[2024-10-29] MEDS ORDERED: NALBUPHINE HCL INJ 10 MG/ML AMP IV PRN (18:18)
[2024-10-29] MEDS ORDERED: SODIUM CHLORIDE 0.9% PF INJ 10 ML VIAL EPI PRN (18:18)
[2024-10-29] MEDS ORDERED: diphenhydrAMINE 50 MG/ML VIAL IV PRN (18:18)
[2024-10-29] MEDS ORDERED: ePHEDrine sulfate 50 MG/ML AMP IV PRN (18:18)
[2024-10-29] MEDS ORDERED: fentaNYL citrate PF 100 MCG/2 ML VIAL EPI PRN (18:18)
--- NOTE | 2024-10-29 18:20 | Anesthesiology Consultation ---
Date of Service October 29, 2024 Assessment & Plan Chart Review Chart Review: Patient NOT seen in Pre Admission Testing and Acceptable Risk for Labor Epidural Consults Requested none ASA ASA2 Proposed Anesthesia Anesthesia Type: Labor Epidural Risk / Benefits Reviewed With: PT / POA / Parent / Guardian, Accepts Plan and Informed Consent Obtained History Height/Weight Height: 5 ft 3 in Weight: 92.079 kg Allergies Allergy/AdvReac Type Severity Reaction Status Date / Time citalopram [From Celexa] Allergy Intermediate Anxiety Verified 07/27/22 15:05 cyclobenzaprine Allergy Intermediate heart Verified 07/27/22 15:05 palpations Medications Active Medications Generic Name Dose Route Start Last Admin Trade Name Freq PRN Reason Stop Dose Admin Bupivacaine HCl 30 ml 10/29/24 18:18 10/29/24 18:39 Bupivacaine 0.25% Pf 30 Ml Vial EPI 10/30/24 18:17 30 ml ONCE PRN Administration Epidural Redose Fentanyl/Bupivacaine/Sodium Chlor 100 ml 10/29/24 18:18 10/29/24 18:35 Fentanyl 2 Mcg/Ml Bupivacaine 0.125%-Nss 100ml Bag EPI 10/30/24 18:17 100 ml PRN PRN Administration Pain R/T Labor Protocol Sodium Chloride 1,000 mls @ 50 mls/hr 10/29/24 18:00 10/29/24 18:00 Nss IV 10/30/24 17:59 999 mls/hr .Q20H WENDI Administration NPO Date Last Intake of Fluids: 10/29/24 Time Last Intake of Fluids: 18:00 Date Last Intake of Solids: 10/29/24 Time Last Intake of Solids: 13:30 Past Medical History Medical History AMA (advanced maternal age) multigravida 35+ Depression delivery 2009 delivery at 29weeks GDM (gestational diabetes mellitus) HSV (herpes simplex virus) infection Anxiety History of COVID-19 diagnosed 10/2021--mild symptoms, no symptoms now Groin abscess Exercise / Class Metabolic Activity 1 > 8 Run/Swim/Ski/Tennis Past Family History Family History Grandmother (Paternal) Breast cancer Other No family history of adverse response to anesthesia Denies family history of Ovarian cancer Colorectal cancer Past Surgical History Surgical History History of hemorrhoidectomy History of cholecystectomy History of wisdom tooth extraction Past Anesthesia History No Hx of Anesthesia Complications and No Family Hx of Anesthesia Complications History of PONV No Hx of PONV and No Hx of Motion Sickness Social History Smoking Status: Current every day smoker Do You Dip or Chew Tobacco: No Hx Alcohol Use: No Hx Substance Use: No substance use type: does not use Review of Systems ROS Unobtainable: All systems reviewed & are unremarkable except as noted in HPI & below Physical Exam Vital Signs Last Vital Signs Temp 36.7 C 10/29/24 19:15 Pulse 84 10/29/24 19:27 Resp 18 10/29/24 19:15 BP 125/88 10/29/24 19:25 Pulse Ox 91 10/29/24 19:27 ENMT Mouth: no TMJ abnormality Thyromental Distance: > or= 3.5 Finger Breadths Mallampati Class: II Neck normal visual inspection and trachea midline; neck extension not limited Respiratory normal respiratory effort Auscultation: lungs clear to auscultation bilaterally Cardiovascular Rate/Rhythm: regular rate and regular rhythm Heart Sounds: no murmur Musculoskeletal Spine: normal cervical ROM Extremities: full ROM of extremities Neurologic moves all extremities Psychiatric Orientation: alert and oriented x 3 Testing Laboratory Results 10/29/24 09:56 Blood Type A Positive 10/29/24 09:56 Antibody Screen NEGATIVE 10/29/24 09:56 10/29/24 10:20 POC Glucose 91
[2024-10-29] MEDS: fentANYL 2 MCG/ML BUPIVacaine 0.125%-NSS 100ML BAG EPI PRN (18:35)
[2024-10-29] MEDS: BUPIVACAINE 0.25% PF 30 ML VIAL EPI PRN (18:39)
[2024-10-29] MEDS: LIDOCAINE 2%/EPINEPHRINE 1:200,000 20 ML PF EPI STA (18:39)
[2024-10-29] MEDS: fentaNYL citrate PF 100 MCG/2 ML VIAL EPI STA (18:39)
--- NOTE | 2024-10-29 19:30 | Anesthesia Procedure Note ---
Date of Service October 29, 2024 Anesthesia Epidural Re-Dose Vital Signs Temp Pulse Resp BP Pulse Ox 36.7 C 84 18 125/88 91 10/29/24 19:15 10/29/24 19:27 10/29/24 19:15 10/29/24 19:25 10/29/24 19:27 Notes Pain Intensity: 6 Dilatation (cm): 6.5 Effacement (%): 100 Called by nursing to evaluate epidural as the patient is having increased pain. The epidural was re-dosed with the following medications (all medications via epidural route) after negative aspiration of the epidural catheter for CSF/HEME. 0.2 Ropivacaine ml via epidural After Epidural Re-Dose Mental Status: alert / awake / arousable and participated in evaluation Pain: improving with treatment Airway Patency, RR, SpO2: stable & adequate BP & HR: stable & adequate Additional Notes: Patient now 8 cm and having pain. Redosed epidural with 8 cc of 0.125% bupi. HDS. Pain improved.
[2024-10-29] MEDS: OXYTOCIN 30 UNITS/NSS 30 UNITS/500 ML BAG IV PRN (20:35)
[2024-10-29] MEDS: METHYLERGONOVINE MALEATE 0.2 MG/ML AMP IM STA (20:35)
[2024-10-29] MEDS: SODIUM CHLORIDE 0.9% PF INJ 10 ML VIAL ONE (20:40)
[2024-10-29] MEDS ORDERED: ACETAMINOPHEN 325 MG TAB PO PRN (20:58)
[2024-10-29] MEDS ORDERED: bisacodyL 10 MG SUPP PR PRN (20:58)
[2024-10-29] MEDS ORDERED: DIPHTHER/TETAN/PERTUS Vaccine (Tdap, Adol/Adult) 0.5mL IM ONE (20:58)
[2024-10-29] MEDS ORDERED: HYDROCORTISONE ACETATE 25 MG SUPP PR PRN (20:58)
--- NOTE | 2024-10-29 21:02 | Delivery Summary ---
Vaginal Delivery Summary Date of Service October 29, 2024 Vaginal Delivery Summary DELIVERY NOTE Patient delivered a live male in left occiput anterior presentation there was no nuchal cord which was easily reduced. was delivered and placed on mother's abdomen. Delayed cord clamping was performed. Cord blood is obtained Cord gasses are not obtained Meconium is absent Placenta is spontaneously delivered. Placenta appears grossly normal and has 3 vessel cord Inspection of the perineum showed a second-degree midline laceration. Laceration is repaired in layers with 2-0 Vicryl in layers Rectal exam post repair showed good sphincter tone no sutures palpated in the rectum. Quantitative blood loss is 111 cc Infants weight and scores are in the pediatric record Mother and baby are stable in in the recovery
--- NOTE | 2024-10-29 22:41 | Anesthesia Procedure Note ---
Date of Service October 29, 2024 Anesthesia Post Epidural Note Vital Signs Vital Signs: Temp Pulse Resp BP Pulse Ox 36.6 C 102 H 18 125/59 L 94 10/29/24 20:45 10/29/24 22:37 10/29/24 21:45 10/29/24 22:28 10/29/24 22:37 Pain Intensity Lower Abdomen: Pain Intensity: 6 Bilateral Abdomen: Pain Intensity: 6 Notes Mental Status: alert / awake / arousable and participated in evaluation Nausea / Vomiting: adequately controlled Pain: adequately controlled Airway Patency, RR, SpO2: stable & adequate BP & HR: stable & adequate Hydration State: stable & adequate Neuraxial Anesthesia: was administered and sensory block is resolving Anesthetic Complications: no major complications apparent Epidural: Removed without complications and With tip intact
[2024-10-29] MEDS: miSOPROStoL 200 MCG TAB PR ONE (22:50)
[2024-10-29] MEDS: BENZOCAINE 20% SPRY 85 APPLN/85 GM CAN EXT PRN (22:50)
[2024-10-29] MEDS: IBUPROFEN 600 MG TAB PO PRN (22:56)
[2024-10-29] MEDS: DOCUSATE SODIUM 100 MG CAP PO SCH (22:56)
[2024-10-29] MEDS: BUPIVACAINE 0.25% PF 30 ML VIAL ONE (23:50)
[2024-10-29] MEDS: fentaNYL citrate PF 100 MCG/2 ML VIAL ONE (23:50)
[2024-10-29] MEDS: LIDOCAINE 2%/EPINEPHRINE 1:200,000 20 ML PF ONE (23:50)
[2024-10-29] MEDS: ePHEDrine sulfate 50 MG/ML AMP ONE (23:50)
[2024-10-29] MEDS: BUPIVACAINE 0.25% PF 30 ML VIAL EPI STA (23:50)
[2024-10-29] MEDS: fentANYL 2 MCG/ML BUPIVacaine 0.125%-NSS 100ML BAG ONE (23:50)
[2024-10-29] MEDS: SODIUM CHLORIDE 0.9% PF INJ 10 ML VIAL EPI STA (23:51)
[2024-10-30 07:43] LABS: Hematocrit (blood only) 33.5 % (37.0-47.0); Hemoglobin 11.5 g/dl (12.0-16.0); Mean Corpuscular Hemoglobin 32.2 pg (25.0-34.0); Mean Corpuscular Hgb Conc 34.3 g/dL (32.0-36.0); Mean Corpuscular Volume 93.8 fL (80.0-100.0); Mean Platelet Volume 11.6 fL (9.4-12.4); Platelet Count 146 K/uL (130-400); RDW Coefficient of Variation 13.4 % (11.5-14.5); RDW Standard Deviation 45.8 fL (36.4-46.3); Red Blood Count 3.57 M/uL (4.20-5.40); White Blood Count 11.14 K/ul (4.8-10.8)
[2024-10-30] MEDS: PRENATAL VITAMIN 1 TAB PO SCH (08:26)
--- NOTE | 2024-10-30 09:21 | Obstetrical Progress Note ---
Date of Service October 30, 2024 Assessment & Plan Admission and Anticipated Discharge Date Admission Date: October 29, 2024 Subjective Patient is seen and examined. She feels well, no complaints. Ambulating without dizziness Voiding without difficulty Tolerating regular diet with out N&V Bleeding is minimal No fever/ chills/ CP/ SOB/ N&V/ Leg pain Breast feeding without problems Vital Signs Temp Pulse Pulse Resp BP BP BP 10/30/24 07:50 36.8 C 86 16 110/74 10/30/24 03:20 37.2 C 98 H 18 108/70 10/29/24 23:15 37.7 C H 96 H 18 127/60 10/29/24 23:06 109 H 10/29/24 23:04 106 H 10/29/24 23:01 100 H 10/29/24 22:58 115 H 10/29/24 22:56 102 H 10/29/24 22:51 101 H 10/29/24 22:48 103 H 10/29/24 22:46 98 H 10/29/24 22:45 18 10/29/24 22:43 103 H 127/60 10/29/24 22:41 107 H 10/29/24 22:37 102 H 10/29/24 22:36 100 H 10/29/24 22:31 100 H 10/29/24 22:28 96 H 125/59 L 10/29/24 22:26 109 H 10/29/24 22:25 104 H 10/29/24 22:21 101 H 10/29/24 22:19 102 H 10/29/24 22:16 98 H 10/29/24 22:15 18 10/29/24 22:13 100 H 130/59 L 10/29/24 22:12 104 H 10/29/24 22:11 103 H 10/29/24 22:07 95 H 10/29/24 22:06 95 H 10/29/24 22:01 10/29/24 22:01 103 H 10/29/24 22:01 93 H 10/29/24 21:58 95 H 138/60 10/29/24 21:56 100 H 10/29/24 21:51 107 H 10/29/24 21:50 103 H 10/29/24 21:46 98 H 10/29/24 21:45 18 10/29/24 21:44 103 H 125/62 10/29/24 21:41 99 H 10/29/24 21:40 102 H 10/29/24 21:36 98 H 10/29/24 21:32 99 H 10/29/24 21:31 94 H 10/29/24 21:30 18 10/29/24 21:30 91 H 148/65 H 10/29/24 21:26 10/29/24 21:26 100 H 10/29/24 21:26 98 H 10/29/24 21:21 94 H Pulse Ox O2 Del Method 10/30/24 07:50 98 Room Air 10/30/24 03:20 96 Room Air 10/29/24 23:15 97 Room Air 10/29/24 23:06 95 10/29/24 23:04 93 10/29/24 23:01 96 10/29/24 22:58 94 10/29/24 22:56 96 10/29/24 22:51 97 10/29/24 22:48 94 10/29/24 22:46 97 10/29/24 22:45 10/29/24 22:43 10/29/24 22:41 96 10/29/24 22:37 94 10/29/24 22:36 95 10/29/24 22:31 97 10/29/24 22:28 10/29/24 22:26 95 10/29/24 22:25 92 10/29/24 22:21 94 10/29/24 22:19 94 10/29/24 22:16 95 10/29/24 22:15 10/29/24 22:13 10/29/24 22:12 93 10/29/24 22:11 96 10/29/24 22:07 94 10/29/24 22:06 95 10/29/24 22:01 95 10/29/24 22:01 10/29/24 22:01 93 10/29/24 21:58 10/29/24 21:56 96 10/29/24 21:51 94 10/29/24 21:50 88 L 10/29/24 21:46 99 10/29/24 21:45 10/29/24 21:44 10/29/24 21:41 100 10/29/24 21:40 92 10/29/24 21:36 96 10/29/24 21:32 93 10/29/24 21:31 100 10/29/24 21:30 10/29/24 21:30 10/29/24 21:26 97 10/29/24 21:26 10/29/24 21:26 94 10/29/24 21:21 92 Lab Results 10/29/24 10/29/24 10/30/24 Range/Units 09:56 10:20 07:20 WBC 9.86 11.14 H (4.8-10.8) K/ul RBC 3.64 L 3.57 L (4.20-5.40) M/uL Hgb 11.7 L 11.5 L (12.0-16.0) g/dl Hct 34.1 L 33.5 L (37.0-47.0) % MCV 93.7 93.8 (80.0-100.0) fL MCH 32.1 32.2 (25.0-34.0) pg MCHC 34.3 34.3 (32.0-36.0) g/dL RDW Std Deviation 45.1 45.8 (36.4-46.3) fL RDW Coeff of Monica 13.2 13.4 (11.5-14.5) % Plt Count 149 146 (130-400) K/uL MPV 12.0 11.6 (9.4-12.4) fL POC Glucose 91 (70-99) mg/dl Treponema pallidum Ab Negative (Negative) Blood Type A Positive Antibody Screen NEGATIVE PE: General: Alert, orientedx3, NAD Abd: soft, NT, fundus firm, below Umbilicus Perineum intact, Lochia rubra minimal Ext; NT, no edema AP: 34 yo s/p , ppd# 1 VSS Afebrile doing well Continue routine care All questions were answered D/C home tomorrow Results & Data Vital Signs (Past 12 Hours) Vital Signs Temp Pulse Pulse Resp BP BP BP 10/30/24 07:50 36.8 C 86 16 110/74 10/30/24 03:20 37.2 C 98 H 18 108/70 10/29/24 23:15 37.7 C H 96 H 18 127/60 10/29/24 23:06 109 H 10/29/24 23:04 106 H 10/29/24 23:01 100 H 10/29/24 22:58 115 H 10/29/24 22:56 102 H 10/29/24 22:51 101 H 10/29/24 22:48 103 H 10/29/24 22:46 98 H 10/29/24 22:45 18 10/29/24 22:43 103 H 127/60 10/29/24 22:41 107 H 10/29/24 22:37 102 H 10/29/24 22:36 100 H 10/29/24 22:31 100 H 10/29/24 22:28 96 H 125/59 L 10/29/24 22:26 109 H 10/29/24 22:25 104 H 10/29/24 22:21 101 H 10/29/24 22:19 102 H 10/29/24 22:16 98 H 10/29/24 22:15 18 10/29/24 22:13 100 H 130/59 L 10/29/24 22:12 104 H 10/29/24 22:11 103 H 10/29/24 22:07 95 H 10/29/24 22:06 95 H 10/29/24 22:01 10/29/24 22:01 103 H 10/29/24 22:01 93 H 10/29/24 21:58 95 H 138/60 10/29/24 21:56 100 H 10/29/24 21:51 107 H 10/29/24 21:50 103 H 10/29/24 21:46 98 H 10/29/24 21:45 18 10/29/24 21:44 103 H 125/62 10/29/24 21:41 99 H 10/29/24 21:40 102 H 10/29/24 21:36 98 H 10/29/24 21:32 99 H 10/29/24 21:31 94 H 10/29/24 21:30 18 10/29/24 21:30 91 H 148/65 H 10/29/24 21:26 10/29/24 21:26 100 H 10/29/24 21:26 98 H 10/29/24 21:21 94 H Pulse Ox O2 Del Method 10/30/24 07:50 98 Room Air 10/30/24 03:20 96 Room Air 10/29/24 23:15 97 Room Air 10/29/24 23:06 95 10/29/24 23:04 93 10/29/24 23:01 96 10/29/24 22:58 94 10/29/24 22:56 96 10/29/24 22:51 97 10/29/24 22:48 94 10/29/24 22:46 97 10/29/24 22:45 10/29/24 22:43 10/29/24 22:41 96 10/29/24 22:37 94 10/29/24 22:36 95 10/29/24 22:31 97 10/29/24 22:28 10/29/24 22:26 95 10/29/24 22:25 92 10/29/24 22:21 94 10/29/24 22:19 94 10/29/24 22:16 95 10/29/24 22:15 10/29/24 22:13 10/29/24 22:12 93 10/29/24 22:11 96 10/29/24 22:07 94 10/29/24 22:06 95 10/29/24 22:01 95 10/29/24 22:01 10/29/24 22:01 93 10/29/24 21:58 10/29/24 21:56 96 10/29/24 21:51 94 10/29/24 21:50 88 L 10/29/24 21:46 99 10/29/24 21:45 10/29/24 21:44 10/29/24 21:41 100 10/29/24 21:40 92 10/29/24 21:36 96 10/29/24 21:32 93 10/29/24 21:31 100 10/29/24 21:30 10/29/24 21:30 10/29/24 21:26 97 10/29/24 21:26 10/29/24 21:26 94 10/29/24 21:21 92
[2024-10-30 11:56] VITALS: RESP 18
[2024-10-30 20:28] VITALS: BP 120/81; PULSE 94; TEMP 98.4; O2SAT 99
[2024-10-30] MEDS: bisacodyL 5 MG TABEC PO SCH (20:32)
== END 2024-10-30 21:49 | disposition home health service (06) | DRG 807 ==
LOC: 4S1 07:57 → 4E2 10-30 00:42